=== PATIENT | female | born 1975 | race Caucasian/White ===

== ENCOUNTER 2017-11-15 13:26 | Observation (INO) ==
[2017-11-15] MEDS ORDERED: *HR* Morphine 2 MG/ML SYRINGE IVP ONE (14:56)
[2017-11-15] MEDS ORDERED: 0.9 % Sodium Chloride 1,000 ML IVC ONE ×2 (14:56→16:34)
[2017-11-15] MEDS ORDERED: Ondansetron 4 MG/2 ML VIAL IVP ONE (14:56)
[2017-11-15 15:19] LABS: Bilirubin,Urine Moderate (Negative); Blood,Urine Large (Negative); Clarity,Urine Cloudy (Clear); Glucose,Urine (UA) Normal (Normal); Ketones,Urine 15 mg/dL (Negative); Leukocyte Esterase,Urine Small (Negative); Nitrite,Urine Negative (Negative); PH,Urine 5.5 pH Units (5.0-8.0); Protein,Urine 100 mg/dL (Neg-Trace); Specific Gravity,Urine 1.019 (1.010-1.025); Urobilinogen,Urine Normal (Normal)
[2017-11-15 15:20] LABS: Color,Urine Brown (Yellow)
[2017-11-15 15:29] LABS: Basophils % 0.4 %; Eosinophils # 0.1 K/mcL (0.0-0.6); Eosinophils % 0.8 %; Hematocrit 38.2 % (35.3-44.9); Hemoglobin 13.1 g/dL (11.5-15.4); Immature Granulocytes % 0.3 % (0-4); Lymphocytes % 13.1 %; Mean Corpuscular HGB Conc 34.3 g/dL (31.6-35.5); Mean Corpuscular Hemoglobin 33.4 pg (28.0-33.3); Mean Corpuscular Volume 97.4 fL (83.0-100.0); Mean Platelet Volume 9.4 fL (9.4-12.4); Monocytes # 0.6 K/mcL (0.0-1.3); Monocytes % 7.8 %; Neutrophils # 5.9 K/mcL (1.6-8.9); Platelet Count 262 K/mcL (140-400); Red Blood Count 3.92 M/mcL (3.82-4.97); Red Cell Distribution Width 14.5 % (11.5-14.5); Segmented Neutrophils % 77.6 %
[2017-11-15 15:49] LABS: Albumin 3.8 g/dL (3.5-5.7); Albumin/Globulin Ratio 1.3 (1.1-2.2); Bilirubin,Direct 0.1 mg/dL (0.0-0.2); Bilirubin,Indirect 0.4 mg/dL (0.0-1.2); Bilirubin,Total 0.5 mg/dL (0.3-1.0); Calcium 9.8 mg/dL (8.6-10.3); Globulin 2.9 g/dL (2.4-3.5); Potassium 3.7 mEq/L (3.5-5.1); Total Protein 6.7 g/dL (6.4-8.9)
[2017-11-15] MEDS ORDERED: Ondansetron 4 MG/2 ML VIAL IVP STA (16:22)
[2017-11-15] MEDS ORDERED: *HR* Morphine 2 MG/ML SYRINGE IVP STA (16:22)
--- NOTE | 2017-11-15 16:33 | Emergency Department Note ---
Disposition Clinical Impression: PAT (acute kidney injury), Kidney stone Disposition: Admitted As Inpatient Condition: Good General Adult HPI - General Chief complaint: ED Abdominal Pain Stated complaint: "kidney stone" Time Seen by Provider: 11/15/17 13:40 Source: other Limitations: physical limitation Nursing Notes Reviewed: Yes Vital Signs Reviewed: Yes - History of Present Illness HPI Narrative: Patient presents emergency department today for evaluation of back pain as well as dark urine. Patient's accompanied by caretakers. The patient was initially seen on the fifth at [facility] for evaluation of possible kidney stone. The patient is unable to state what exactly happened that she has a history of bipolar schizophrenia and MRDD that does not allow her to significantly communicate. Nursing staff state that the kidney stone was 14 mm in size and that she was placed on diclofenac. Diclofenac not been helping and she has been screaming out in episodes of pain that caused her to be assessed distraction to the other members. The patient's urine has changed to be a dark color. Pain Scale: 4 - Related Data Home Medications Medication Instructions Recorded Confirmed Acetaminophen [Tylenol] 1,000 mg PO BID PRN 11/15/17 11/15/17 Atorvastatin [Lipitor] 40 mg PO HS 11/15/17 11/15/17 Cetirizine HCl [Zyrtec] 10 mg PO DAILY 11/15/17 11/15/17 Cyanocobalamin (Vitamin B-12) 500 mcg PO DAILY 11/15/17 11/15/17 [Vitamin B12] DULoxetine [Cymbalta] 90 mg PO QAM 11/15/17 11/15/17 Diclofenac Sodium [Voltaren] 75 mg PO BID 11/15/17 11/15/17 Docusate Sodium [Dulcolax Stool 200 mg PO DAILY 11/15/17 11/15/17 Softener] Haloperidol Decanoate [Haldol] 75 mg IM QMONTH 11/15/17 11/15/17 Ibuprofen [Ibu] 400 mg PO Q8H PRN 11/15/17 11/15/17 Levothyroxine [Synthroid] 25 mcg PO 0630 11/15/17 11/15/17 Medroxyprogesterone Acetate 10 mg PO DAILY PRN 11/15/17 11/15/17 [Provera] Nystatin POWDER [Nystop] 1 appl TP TID PRN 11/15/17 11/15/17 Polyethylene Glycol 3350 [MiraLAX] 17 gm PO DAILY PRN 11/15/17 11/15/17 Psyllium Husk [Fiber] 0.52 gm PO BID 11/15/17 11/15/17 metFORMIN [Glucophage] 500 mg PO BIDWM 11/15/17 11/15/17 Allergies Allergy/AdvReac Type Severity Reaction Status Date / Time No Known Allergies Allergy Verified 11/15/17 14:58 Limitations: ROS unobtainable due to patients medical condition Past Medical History - Past Medical History Medical history: Reports: other Psychiatric history: Reports: bipolar, schizophrenia, other 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 No significant CVA tenderness. Extremities: No peripheral edema or extremity tenderness Skin: Normal temperature, turgor and texture; no rash, ulcers or subcutaneous nodules Neuro: Awake and interactive - General Limitations: physical limitation General appearance: alert, in no apparent distress Course - Reevaluation(s) Reevaluation #1: Patient's overall physical exam is challenging secondary to her decreased ability to communicate pain. Patient does not have what appears to be significant CVA tenderness or abdominal pain. The group emergency spill response technician is at bedside and states that she has been requiring one-on-one nursing and care. I have obtained previous CAT scan records show 14 mm stone at the right UVP. Patient does have associated hydronephrosis. Patient's urine has been obtained and is being cultured for possible infection. I did talk with urology who will accept the patient to their service. Agrees with ceftriaxone to cover her until cultures have resulted. Patient will likely return should stent tomorrow. I do not believe that there are any barriers to her being discharged. She has been cooperative in the emergency department as long as she has had pain medicine. She will try to get out of bed if she does not have appropriate pain medicine ordered. Patient will continue to be observed in the emergency department. I will notify urology if I believe there is any other barriers to disposition. - Consultations Consultation #1: Discussed with Dr. Myrick. Patient accepted to their service. Vital Signs Temperature 98.2 F 11/15/17 13:30 Pulse Rate 98 11/15/17 13:30 Respiratory Rate 14 11/15/17 13:30 Blood Pressure 89/63 11/15/17 13:30 O2 Sat by Pulse Oximetry 97 11/15/17 13:30 Temperature 98.6 F 11/16/17 05:58 Pulse Rate 80 11/16/17 05:58 Respiratory Rate 16 11/16/17 05:58 Blood Pressure 114/68 11/16/17 05:58 O2 Sat by Pulse Oximetry 96 11/16/17 05:58 Oxygen Delivery Oxygen Delivery Room Air Medical Decision Making - Lab Data Result diagrams: 11/15/17 14:56 11/15/17 14:56 Lab Results 11/15/17 11/15/17 11/15/17 Range/Units 14:16 14:56 14:56 WBC 7.7 (4.3-11.1) K/mcL RBC 3.92 (3.82-4.97) M/mcL Hgb 13.1 (11.5-15.4) g/dL Hct 38.2 (35.3-44.9) % MCV 97.4 (83.0-100.0) fL MCH 33.4 H (28.0-33.3) pg MCHC 34.3 (31.6-35.5) g/dL RDW 14.5 (11.5-14.5) % Plt Count 262 (140-400) K/mcL MPV 9.4 (9.4-12.4) fL Immature Gran % 0.3 (0-4) % Seg Neutrophils % 77.6 % Lymphocytes % 13.1 % Monocytes % 7.8 % Eosinophils % 0.8 % Basophils % 0.4 % Neutrophils # 5.9 (1.6-8.9) K/mcL Lymphocytes # 1.0 (0.6-4.6) K/mcL Monocytes # 0.6 (0.0-1.3) K/mcL Eosinophils # 0.1 (0.0-0.6) K/mcL Basophils # 0.0 (0.0-0.2) K/mcL Sodium 138 (136-145) mEq/L Potassium 3.7 (3.5-5.1) mEq/L Chloride 104 (98-107) mEq/L Carbon Dioxide 25 (23-29) mEq/L BUN 22 H (6-20) mg/dL Creatinine 1.71 H (0.60-1.20) mg/dL Est GFR ( Amer) 40 L (> 60) Est GFR (Non-Af Amer) 33 L (> 60) BUN/Creatinine Ratio 13 (6-26) Glucose 112 H (70-105) mg/dL Calculated Osmolality 290 (280-300) Lactic Acid (0.5-2.2) mmol/L Calcium 9.8 (8.6-10.3) mg/dL Total Bilirubin 0.5 (0.3-1.0) mg/dL Direct Bilirubin 0.1 (0.0-0.2) mg/dL Indirect Bilirubin 0.4 (0.0-1.2) mg/dL AST 32 (13-39) Units/L ALT 18 (7-52) Units/L Alkaline Phosphatase 52 (34-104) Units/L Serum Total Protein 6.7 (6.4-8.9) g/dL Albumin 3.8 (3.5-5.7) g/dL Globulin 2.9 (2.4-3.5) g/dL Albumin/Globulin Ratio 1.3 (1.1-2.2) Lipase 81 (11-82) Units/L Ur Specimen Adequacy See below A Urine Color Brown (Yellow) Urine Clarity Cloudy A (Clear) Urine pH 5.5 (5.0-8.0) pH Units Ur Specific Whitman 1.019 (1.010-1.025) Urine Protein 100 H (Neg-Trace) mg/dL Urine Glucose (UA) Normal (Normal) mg/dL Urine Ketones 15 H (Negative) mg/dL Urine Blood Large H (Negative) Urine Nitrite Negative (Negative) Urine Bilirubin Moderate H (Negative) Urine Urobilinogen Normal (Normal) mg/dL Ur Leukocyte Esterase Small H (Negative) Ur Culture Indicated? YES A (NO) 11/15/17 Range/Units 15:08 WBC (4.3-11.1) K/mcL RBC (3.82-4.97) M/mcL Hgb (11.5-15.4) g/dL Hct (35.3-44.9) % MCV (83.0-100.0) fL MCH (28.0-33.3) pg MCHC (31.6-35.5) g/dL RDW (11.5-14.5) % Plt Count (140-400) K/mcL MPV (9.4-12.4) fL Immature Gran % (0-4) % Seg Neutrophils % % Lymphocytes % % Monocytes % % Eosinophils % % Basophils % % Neutrophils # (1.6-8.9) K/mcL Lymphocytes # (0.6-4.6) K/mcL Monocytes # (0.0-1.3) K/mcL Eosinophils # (0.0-0.6) K/mcL Basophils # (0.0-0.2) K/mcL Sodium (136-145) mEq/L Potassium (3.5-5.1) mEq/L Chloride (98-107) mEq/L Carbon Dioxide (23-29) mEq/L BUN (6-20) mg/dL Creatinine (0.60-1.20) mg/dL Est GFR ( Amer) (> 60) Est GFR (Non-Af Amer) (> 60) BUN/Creatinine Ratio (6-26) Glucose (70-105) mg/dL Calculated Osmolality (280-300) Lactic Acid 1.2 (0.5-2.2) mmol/L Calcium (8.6-10.3) mg/dL Total Bilirubin (0.3-1.0) mg/dL Direct Bilirubin (0.0-0.2) mg/dL Indirect Bilirubin (0.0-1.2) mg/dL AST (13-39) Units/L ALT (7-52) Units/L Alkaline Phosphatase (34-104) Units/L Serum Total Protein (6.4-8.9) g/dL Albumin (3.5-5.7) g/dL Globulin (2.4-3.5) g/dL Albumin/Globulin Ratio (1.1-2.2) Lipase (11-82) Units/L Ur Specimen Adequacy Urine Color (Yellow) Urine Clarity (Clear) Urine pH (5.0-8.0) pH Units Ur Specific Whitman (1.010-1.025) Urine Protein (Neg-Trace) mg/dL Urine Glucose (UA) (Normal) mg/dL Urine Ketones (Negative) mg/dL Urine Blood (Negative) Urine Nitrite (Negative) Urine Bilirubin (Negative) Urine Urobilinogen (Normal) mg/dL Ur Leukocyte Esterase (Negative) Ur Culture Indicated? (NO)
[2017-11-15] MEDS ORDERED: Ondansetron 4 MG/2 ML VIAL IVP PRN (16:46)
[2017-11-15] MEDS ORDERED: OXYCODONE Oral CONC 10 MG/0.5 ML ORAL.SYG SL PRN (16:46)
[2017-11-15] MEDS ORDERED: *HR* HYDROcodone/Acet 5/325 mg TABLET PO PRN (16:46)
[2017-11-15] MEDS ORDERED: Naloxone 0.4 MG/ML INJ IVP PRN (16:46)
[2017-11-15] MEDS ORDERED: *HR* Promethazine 25 MG/ML VIAL IVP PRN (16:46)
[2017-11-15] MEDS ORDERED: Dextrose Gel 15 GM/37.5 ML TUBE PO PRN ×2 (16:52)
[2017-11-15] MEDS ORDERED: D5% in Water 1,000 ML IVC PRN (16:52)
[2017-11-15] MEDS ORDERED: *HR* Dextrose 50 % in Water (Syg) 50 ML SYRINGE IVP PRN (16:52)
[2017-11-15] MEDS ORDERED: Haloperidol Decanoate 50 MG/ML VIAL IM SCH (17:00)
--- NOTE | 2017-11-15 17:14 | Urology History & Physical ---
Date of Encounter: 11/15/17 Time of Encounter: 17:11 Assessment and Plan (1) Ureteral calculi Current Visit: Yes Status: Acute We'll plan for cystoscopy and ureteral stent placement tomorrow. We'll need to perform a staged procedure on the stone because of its proximal location and size. This was discussed in detail with the patient's caregiver. Nothing by mouth after midnight. will obtain KUB (2) PAT (acute kidney injury) Current Visit: Yes Status: Acute Hold all NSAIDs. Hydration. Should improve with stent placement tomorrow. History of Present Illness Chief complaint: flank pain. gross hematuria. HPI: Ms. Cowan is a 42 year old female recently seen at [place] emergency room with a 14 mm UPJ stone with severe hydronephrosis. Symptoms have remained severe. Gross hematuria. Patient is MRDD with minimal communication. Her caregivers report there been unable to control her pain and symptoms. No reported fever. Past Med Surg Social Fam HX - Past Medical History Medical history: other Additional medical history: PCOS, arrythmia Psychiatric history: bipolar, schizophrenia, other - Social History Smoking Status: Never smoker Alcohol use: none Drug use: none Medications and Allergies Acetaminophen [Tylenol] 1,000 mg PO BID PRN 11/15/17 [History] Atorvastatin [Lipitor] 40 mg PO HS 11/15/17 [History] Cetirizine HCl [Zyrtec] 10 mg PO DAILY 11/15/17 [History] Cyanocobalamin (Vitamin B-12) [Vitamin B12] 500 mcg PO DAILY 11/15/17 [History] DULoxetine [Cymbalta] 90 mg PO QAM 11/15/17 [History] Diclofenac Sodium [Voltaren] 75 mg PO BID 11/15/17 [History] Docusate Sodium [Dulcolax Stool Softener] 200 mg PO DAILY 11/15/17 [History] Haloperidol Decanoate [Haldol] 75 mg IM QMONTH 11/15/17 [History] Ibuprofen [Ibu] 400 mg PO Q8H PRN 11/15/17 [History] Levothyroxine [Synthroid] 25 mcg PO 0630 11/15/17 [History] Medroxyprogesterone Acetate [Provera] 10 mg PO DAILY PRN 11/15/17 [History] Nystatin POWDER [Nystop] 1 appl TP TID PRN 11/15/17 [History] Polyethylene Glycol 3350 [MiraLAX] 17 gm PO DAILY PRN 11/15/17 [History] Psyllium Husk [Fiber] 0.52 gm PO BID 11/15/17 [History] metFORMIN [Glucophage] 500 mg PO BIDWM 11/15/17 [History] 3 Allergy/AdvReac Type Severity Reaction Status Date / Time No Known Allergies Allergy Verified 11/15/17 14:58 Review of Systems ROS unobtainable: due to mental status - Constitutional no fever(s) Exam Initial Vital Signs Temp Pulse Resp BP Pulse Ox 98.2 F 98 14 89/63 97 11/15/17 13:30 11/15/17 13:30 11/15/17 13:30 11/15/17 13:30 11/15/17 13:30 - General physical appearance Present: no distress, moderate pain - Eyes Present: PERRL, conjunctiva is clear - ENT Present: normal nares, no congestion - Neck Present: no masses - Respiratory Present: normal respiratory effort - Cardiovascular Cardiovascular exam IM: RRR - Abdomen Abdomen: Present: soft, suprapubic tenderness - Integumentary Present: no rash - Neurologic Present: normal coordination, other (noncommunicative) - Musculoskeletal Present: normal gait Urology Results - Labs 11/15/17 14:56 11/15/17 14:56 Abnormal lab results MCH 33.4 pg (28.0-33.3) H 11/15/17 14:56 BUN 22 mg/dL (6-20) H 11/15/17 14:56 Creatinine 1.71 mg/dL (0.60-1.20) H 11/15/17 14:56 Est GFR ( Amer) 40 (> 60) L 11/15/17 14:56 Est GFR (Non-Af Amer) 33 (> 60) L 11/15/17 14:56 Glucose 112 mg/dL (70-105) H 11/15/17 14:56 Ur Specimen Adequacy See below A 11/15/17 14:16 Urine Clarity Cloudy (Clear) A 11/15/17 14:16 Urine Protein 100 mg/dL (Neg-Trace) H 11/15/17 14:16 Urine Ketones 15 mg/dL (Negative) H 11/15/17 14:16 Urine Blood Large (Negative) H 11/15/17 14:16 Urine Bilirubin Moderate (Negative) H 11/15/17 14:16 Ur Leukocyte Esterase Small (Negative) H 11/15/17 14:16 Ur Culture Indicated? YES (NO) A 11/15/17 14:16 All other labs normal.
[2017-11-15] MEDS: Insulin LISPRO 300 UNITS/3 ML VIAL SQ SCH (18:41)
[2017-11-15] MEDS: 0.9 % Sodium Chloride 1,000 ML IVC SCH (19:28)
[2017-11-15] MEDS: OXYCODONE Oral CONC 10 MG/0.5 ML ORAL.SYG SL PRN (20:34)
[2017-11-16] MEDS: Insulin LISPRO 300 UNITS/3 ML VIAL SQ SCH ×4 (00:37→18:00)
[2017-11-16] MEDS: 0.9 % Sodium Chloride 1,000 ML IVC SCH ×3 (04:55→16:00)
[2017-11-16] MEDS: OXYCODONE Oral CONC 10 MG/0.5 ML ORAL.SYG SL PRN ×3 (04:57→21:47)
[2017-11-16] MEDS ORDERED: Levothyroxine 25 MCG TABLET PO SCH (06:30)
[2017-11-16] MEDS ORDERED: *HR* FentaNYL (PF) 100 MCG/2 ML VIAL ONE (15:24)
[2017-11-16] MEDS ORDERED: Ondansetron 4 MG/2 ML VIAL ONE (15:25)
[2017-11-16] MEDS ORDERED: Lidocaine -MPF 2% 2 ML VIAL ONE (15:25)
[2017-11-16] MEDS ORDERED: Dexamethasone 4 MG/ML VIAL ONE (15:25)
[2017-11-16] MEDS ORDERED: *HR* Propofol 200 MG/20 ML VIAL IVP ONE (15:26)
--- NOTE | 2017-11-16 15:27 | Anesthesia Evaluation PreOp ---
Date of Encounter: 11/16/17 Time of Encounter: 15:25 - Past History Planned Operation: Cysto Rt Stent Cardiac History: Denies any Significant Hx Pulmonary History: Denies Any Significant HX DUSTLESS OPERATOR History: Denies Any Significant HX Other Medical History: Other (MRDD Schizoaffective disorder Bipolar Obese) : No Test: Negative Alcohol Use: none Drug use: none Medications and Allergies Acetaminophen [Tylenol] 1,000 mg PO BID PRN 11/15/17 [History] Atorvastatin [Lipitor] 40 mg PO HS 11/15/17 [History] Cetirizine HCl [Zyrtec] 10 mg PO DAILY 11/15/17 [History] Cyanocobalamin (Vitamin B-12) [Vitamin B12] 500 mcg PO DAILY 11/15/17 [History] DULoxetine [Cymbalta] 90 mg PO QAM 11/15/17 [History] Diclofenac Sodium [Voltaren] 75 mg PO BID 11/15/17 [History] Docusate Sodium [Dulcolax Stool Softener] 200 mg PO DAILY 11/15/17 [History] Haloperidol Decanoate [Haldol] 75 mg IM QMONTH 11/15/17 [History] Ibuprofen [Ibu] 400 mg PO Q8H PRN 11/15/17 [History] Levothyroxine [Synthroid] 25 mcg PO 0630 11/15/17 [History] Medroxyprogesterone Acetate [Provera] 10 mg PO DAILY PRN 11/15/17 [History] Nystatin POWDER [Nystop] 1 appl TP TID PRN 11/15/17 [History] Polyethylene Glycol 3350 [MiraLAX] 17 gm PO DAILY PRN 11/15/17 [History] Psyllium Husk [Fiber] 0.52 gm PO BID 11/15/17 [History] metFORMIN [Glucophage] 500 mg PO BIDWM 11/15/17 [History] 3 Allergy/AdvReac Type Severity Reaction Status Date / Time No Known Allergies Allergy Verified 11/15/17 14:58 - Meds/Allergy Pre-op Review Medications Reviewed: Yes Allergies Reviewed: Yes Beta Blockers on Current Med List: No Anesthesia Results - Labs 11/15/17 14:56 11/15/17 14:56 Laboratory Tests 11/15/17 11/15/17 14:56 14:56 Hgb 13.1 Hct 38.2 Plt Count 262 Sodium 138 Potassium 3.7 BUN 22 H Creatinine 1.71 H Anesthesia Exam O2 Sat Height 1.6 m Weight 90.1 kg Weight 89 kg O2 Sat by Pulse Oximetry 93 O2 Sat by Pulse Oximetry 92 O2 Sat by Pulse Oximetry 96 O2 Sat by Pulse Oximetry 96 O2 Sat by Pulse Oximetry 93 O2 Sat by Pulse Oximetry 95 O2 Sat by Pulse Oximetry 100 O2 Sat by Pulse Oximetry 100 Vital Signs Temp Pulse Resp BP Pulse Ox 98.2 F 98 14 89/63 97 11/15/17 13:30 11/15/17 13:30 11/15/17 13:30 11/15/17 13:30 11/15/17 13:30 Height: 5'3 Weight: 198 lbs NPO (# of Hours): MN Pain Scale: 0 - HEENT Pupil (Motor): Pupils equal, EOMI Mallampati: III Oral Opening: Less than or equal to 3 - DUSTLESS OPERATOR LOC: Oriented DUSTLESS OPERATOR Motor: Normal RUE, Normal LUE, Normal RLE, Normal LLE, Normal Face DUSTLESS OPERATOR Sensory: Normal: RUE, LUE, RLE, LLE, Face - Cardiac Rhythm: Regular Murmur: None JVD: No Carotid Bruit: No - Pulmonary Breath Sounds: bilateral Clear Respiratory Effort: Symmetrical Anesthesia Assess/Plan ASA Score: 2 Modified Harold Scale for Level of Consciousness: Cooperative, oriented, and tranquil Anesthetic Plan: General Monitoring Plan: Standard Monitors Recovery Plan: PACU (Discussed GA, agrees to proceed)
[2017-11-16] MEDS ORDERED: *HR* Midazolam HCl 2 MG/2 ML VIAL ONE (15:38)
[2017-11-16] MEDS ORDERED: Isovue-300 50 ML VIAL IVP ONE (15:41)
[2017-11-16] MEDS ORDERED: *HR* Morphine 2 MG/ML SYRINGE IVP PRN (16:31)
[2017-11-16] MEDS ORDERED: *HR* Promethazine 25 MG/ML VIAL IVP PRN ×2 (16:31→17:18)
--- NOTE | 2017-11-16 16:50 | Operative Note ---
Date of procedure: 11/16/17 Pre-op diagnosis: 1.4 cm ureteropelvic junction stone on the right side with severe hydroneph Post-op diagnosis: same Procedure: Cystoscopy. Right retrograde pyelogram. Right ureteral stent placement. Anesthesia: GETA Surgeon: Bry Myrick Was there an college sports assistant present: No Estimated blood loss (cc): 0 Specimen: None Condition: stable Disposition: PACU Procedure in Detail: PROCEDURE IN DETAIL: Patient was taken back to the operating room, positioned supine on the operating table. Anesthesia was applied without complication. They were moved into dorsal lithotomy. Careful attention was maintained to cushion all pressure points for patient's safety. They were prepped and draped in sterile fashion. Time-out was performed with the proper patient and procedure. A 21-Andorran rigid cystoscope was inserted into the bladder without difficulty. Systematic examination of bladder revealed no abnormalities. The ureteral orifice was cannulated using a 5-Andorran ureteral Catheter and a retrograde pyelogram was performed using Isovue. A filling defect was identified which corresponded to the stone. The stone was very dense and impacted at the UPJ. At that point, a zip wire was placed through the 5- Andorran and confirmed in the renal pelvis with fluoroscopy. A 6 x 26 ureteral stent was placed over the zip wire. Placement was confirmed under fluoroscopy. There was return of significant hydronephrotic dark urine with debris. Bladder was drained. There were no complications.
--- NOTE | 2017-11-16 17:11 | Anesthesia Evaluation Post Op ---
Date of Encounter: 11/16/17 Time of Encounter: 17:10 - Vital Signs Vital Signs: Vital Signs/O2 Sat/Glucose, Most Current Temp Pulse Resp BP Pulse Ox 11/16/17 17:06 97.0 F L 60 15 111/61 92 11/16/17 16:56 85 14 112/66 100 11/16/17 16:46 56 13 110/66 100 11/16/17 16:36 98.5 F 60 14 95/59 99 11/16/17 15:04 97.8 F 63 12 117/71 93 - Lungs Lungs: Clear Ascult./Percussion - Airway Airway: Non-obstructed - Cardiovascular Regular Rate - Mental Status Mental Status: Alert & Oriented, Answers Appropriately - Pain Pain Scale: 0 - Nausea Vomiting Nausea Vomiting: Not Present - Hydration Hydration: Tolerates oral liquids - Discharge PostOp Status: Transfer Patient to floor
[2017-11-16] MEDS ORDERED: Dextrose Gel 15 GM/37.5 ML TUBE PO PRN ×2 (17:18)
[2017-11-16] MEDS ORDERED: *HR* Dextrose 50 % in Water (Syg) 50 ML SYRINGE IVP PRN (17:18)
[2017-11-16] MEDS ORDERED: *HR* HYDROcodone/Acet 5/325 mg TABLET PO PRN (17:18)
[2017-11-16] MEDS ORDERED: Naloxone 0.4 MG/ML INJ IVP PRN (17:18)
[2017-11-16] MEDS ORDERED: Ondansetron 4 MG/2 ML VIAL IVP PRN (17:18)
[2017-11-16] MEDS ORDERED: D5% in Water 1,000 ML IVC PRN (17:18)
[2017-11-16] MEDS ORDERED: Levofloxacin 500 MG/100 ML 500 MG/100 ML BAG IVPB SCH (18:00)
[2017-11-17] MEDS: Insulin LISPRO 300 UNITS/3 ML VIAL SQ SCH ×2 (00:31→05:55)
[2017-11-17] MEDS: OXYCODONE Oral CONC 10 MG/0.5 ML ORAL.SYG SL PRN ×3 (00:56→10:07)
[2017-11-17] MEDS: 0.9 % Sodium Chloride 1,000 ML IVC SCH (02:33)
[2017-11-17 03:26] VITALS: BP 129/79
[2017-11-17] MEDS ORDERED: Levothyroxine 25 MCG TABLET PO SCH (06:30)
[2017-11-17 08:04] LABS: Calcium 8.7 mg/dL (8.6-10.3); Potassium 3.5 mEq/L (3.5-5.1)
--- NOTE | 2017-11-17 08:17 | Discharge Summary ---
Date of Encounter: 11/17/17 Time of Encounter: 08:18 - Discharge Diagnosis (1) Ureteral calculi Priority: Primary Status: Acute - Hospital Course Hospital course: Ms. Cowan is a 42 year old female who presents with a history of 1.4 cm ureteropelvic junction stone on the right side with severe hydronephrosis. On 11/16/2017, the patient was taken to the operating room where she underwent a right retrograde pyelogram and right ureteral stent placement. There were no surgical complications, and the patient tolerated the procedure well. Her postoperative course was relatively unremarkable, and she was dismissed in satisfactory condition. Postoperative expectations, restrictions, activity, and follow-up were discussed with caregiver in room. Patient will follow-up to discuss stone extraction procedure. Time spent discussing smoking cessation with patient: 3 to 10 minutes - Time Spent with Patient Total time spent providing and/or coordinating discharge services: Less than 30 minutes Procedures and tests throughout hospitalization: right retrograde pyelogram, right ureteral stent placement Labs on day of discharge: Labs from last 24 hours 11/17/17 11/17/17 11/16/17 07:17 07:13 17:46 Sodium 138 Potassium 3.5 Chloride 107 Carbon Dioxide 23 BUN 18 Creatinine 1.24 H Est GFR ( Amer) 58 L Est GFR (Non-Af Amer) 47 L BUN/Creatinine Ratio 15 Glucose 113 H POC Glucose 105 H 79 Calculated Osmolality 289 Calcium 8.7 11/16/17 11:56 Sodium Potassium Chloride Carbon Dioxide BUN Creatinine Est GFR ( Amer) Est GFR (Non-Af Amer) BUN/Creatinine Ratio Glucose POC Glucose 95 Calculated Osmolality Calcium - Impressions ITS Impressions KUB X-Ray 11/15/17 17:10 IMPRESSION: Calcific density in the right mid abdomen measuring up to 11-13 mm. These could be within the right renal collecting system and/or ureter. The more cranial calcific densities could be cholelithiasis. D/ 11/15/2017 19:15:36 Quita Malik MD / lgray Interpreting Provider: Quita Malik MD Retrograde Pyelogram 11/16/17 16:23 IMPRESSION: Intraprocedural fluoroscopic spot images as above. See separate procedure report for more information. D/ / Shola Harrell / Shola Harrell Interpreting Provider: Shola Harrell - Discharge Medications Prescriptions: Docusate [Colace] 100 mg PO BID #60 capsule HYDROcodone/Acet 5/325 mg [Woodbine 5-325 mg] 1 tab PO Q6H PRN 4 Days #15 tab PRN Reason: Moderate Pain Home Medications: Acetaminophen [Tylenol] 1,000 mg PO BID PRN 11/15/17 [History] Atorvastatin [Lipitor] 40 mg PO HS 11/15/17 [History] Cetirizine HCl [Zyrtec] 10 mg PO DAILY 11/15/17 [History] Cyanocobalamin (Vitamin B-12) [Vitamin B12] 500 mcg PO DAILY 11/15/17 [History] DULoxetine [Cymbalta] 90 mg PO QAM 11/15/17 [History] Diclofenac Sodium [Voltaren] 75 mg PO BID 11/15/17 [History] Docusate Sodium [Dulcolax Stool Softener] 200 mg PO DAILY 11/15/17 [History] Haloperidol Decanoate [Haldol] 75 mg IM QMONTH 11/15/17 [History] Ibuprofen [Ibu] 400 mg PO Q8H PRN 11/15/17 [History] Levothyroxine [Synthroid] 25 mcg PO 0630 11/15/17 [History] Medroxyprogesterone Acetate [Provera] 10 mg PO DAILY PRN 11/15/17 [History] Nystatin POWDER [Nystop] 1 appl TP TID PRN 11/15/17 [History] Polyethylene Glycol 3350 [MiraLAX] 17 gm PO DAILY PRN 11/15/17 [History] Psyllium Husk [Fiber] 0.52 gm PO BID 11/15/17 [History] metFORMIN [Glucophage] 500 mg PO BIDWM 11/15/17 [History] Docusate [Colace] 100 mg PO BID #60 capsule 11/17/17 [Rx] HYDROcodone/Acet 5/325 mg [[place] 5-325 mg] 1 tab PO Q6H PRN 4 Days #15 tab 11/17 [Rx] Allergies/Adverse Reactions: 3 Allergy/AdvReac Type Severity Reaction Status Date / Time No Known Allergies Allergy Verified 11/15/17 14:58 Date of admission: 11/15/17 16:45 Primary care physician: Christiano Bull MD Discharging clinician: Sarahi Simon Anticipated date of discharge: 11/17/17 Exam Initial Vital Signs Temp Pulse Resp BP Pulse Ox 98.2 F 98 14 89/63 97 11/15/17 13:30 11/15/17 13:30 11/15/17 13:30 11/15/17 13:30 11/15/17 13:30 - General physical appearance Present: well developed, no distress, no pain - ENT Present: normal nares, no hearing loss, no congestion - Neck Present: no masses, trachea midline - Respiratory Present: normal respiratory effort - Cardiovascular Cardiovascular exam IM: RRR - Abdomen Abdomen: Present: soft, non tender - Integumentary Present: no rash, no abnormal pigmentation - Neurologic Present: other (patient sleeping ) - Musculoskeletal Present: other (no pedal edema ) - Patient Status Disposition: Transfer Other Functional capacity at discharge: independent ambulation Overall status at discharge: patient is progressing back to baseline - Discharge Instructions Follow Up With: Christiano Bull MD [Primary Care Provider] - Bry Myrick MD [Partnered Physician] - Additional Instructions: Call if fever greater than 101 degrees. May expect some blood in the urine. May expect irritating voiding symptoms such as dysuria, frequency, hesitancy, urgency. May use Azo [id number]. Okay to return to normal activity as tolerated. Okay to shower. - Diet and Activity Activity: increase activity as tolerated Diet: advance to your usual diet - VTE Documentation of Mechanical Device: Intermittent pneumatic compression device
[2017-11-17] MEDS ORDERED: Haloperidol Decanoate 50 MG/ML VIAL IM SCH ×2 (09:00)
== END 2017-11-17 10:30 | disposition home or self-care (01) ==
LOC: 3ANU 13:26 → EMEROOARM 13:26 → 3ANU 18:06
PROVIDERS: ADMIT Urology; ATTEND Urology

== ENCOUNTER 2017-11-19 23:42 | Inpatient (IN) ==
--- NOTE | 2017-11-20 02:18 | Internal Med History&Physical ---
<YogeshKaty - Last Filed: 11/20/17 03:11> Date of Encounter: 11/20/17 Internal Medicine - H&P: Meds Acetaminophen [Tylenol] 1,000 mg PO BID PRN 11/15/17 [History] Atorvastatin [Lipitor] 40 mg PO HS 11/15/17 [History] Cetirizine HCl [Zyrtec] 10 mg PO DAILY 11/15/17 [History] Cyanocobalamin (Vitamin B-12) [Vitamin B12] 500 mcg PO DAILY 11/15/17 [History] DULoxetine [Cymbalta] 90 mg PO QAM 11/15/17 [History] Diclofenac Sodium [Voltaren] 75 mg PO BID 11/15/17 [History] Docusate Sodium [Dulcolax Stool Softener] 200 mg PO DAILY 11/15/17 [History] Haloperidol Decanoate [Haldol] 75 mg IM QMONTH 11/15/17 [History] Ibuprofen [Ibu] 400 mg PO Q8H PRN 11/15/17 [History] Levothyroxine [Synthroid] 25 mcg PO 0630 11/15/17 [History] Medroxyprogesterone Acetate [Provera] 10 mg PO DAILY PRN 11/15/17 [History] Nystatin POWDER [Nystop] 1 appl TP TID PRN 11/15/17 [History] Polyethylene Glycol 3350 [MiraLAX] 17 gm PO DAILY PRN 11/15/17 [History] Psyllium Husk [Fiber] 0.52 gm PO BID 11/15/17 [History] metFORMIN [Glucophage] 500 mg PO BIDWM 11/15/17 [History] Docusate [Colace] 100 mg PO BID #60 capsule 11/17/17 [Rx] HYDROcodone/Acet 5/325 mg [[place] 5-325 mg] 1 tab PO Q6H PRN 4 Days #15 tab 11/17 [Rx] 3 Allergy/AdvReac Type Severity Reaction Status Date / Time No Known Allergies Allergy Verified 11/15/17 14:58 All Systems PM: A 10-system review of systems was performed and is negative for pertinent findings except as documented above in the HPI. - Constitutional Vitals: Temp Pulse Resp BP Pulse Ox 98.3 F 98 15 135/80 99 11/20/17 02:03 11/20/17 02:03 11/20/17 02:03 11/20/17 02:03 11/20/17 02:03 - Time Spent With Patient Total time spent is greater than 50% in coordination of care (as documented) at patient's floor/unit and/or counseling patient: - Attending Attestation Sheryl Cowan is a 42 year old woman with developmental delay who lives at an assisted living facility with multiple psychotic disorders who was admitted here from 11/15- after presenting with dark urine and back pain after multiple visits to [facility] and was diagnosed here with UTI and nephrolithiasis ( 1.4cm [facility]J stone). She was admitted to the urology service and underwent cystoscopy and a right ureteral stent placed. There was significant hydronephrotic dark urine with debris. She was discharged with analgesics but no abx. She is brought back now by her salesperson books stating that since her discharge she has remained unwell, not eating and notably irritable with weird behavior but not specifying complaints of pain. No fever or chills reported. She was taken to [facility] and transferred back here for further evaluation. On my assessment she was non-verbal but follow some commands. Family history is unknown. Vitals wnl. Obese white F lying comfortably in bed in NAD, slightly dry mucous membranes, no conjunctivae pallor, supple neck, no LAD, no wheezing, rales or rhonchi. Nl s1/s2. Abdomen soft and non-tender w/ no peritoneal reaction, no c/c /e. Unable to assess orientation but she is awake. Able to move all extremities actively. Will admit for observation. Obtain repeat UA to rule out persistent infection as this may be playing a role. Keep NPO for urology evaluation. Send comprehensive labs. Further care based on findings. Resume psychiatric medications. Hold metformin. Noted to have had PAT during last admission. Will check Cr and give fluids if needed. DVT prophylaxis. ABHIJEET GRAY. <Saud Patel - Last Filed: 11/20/17 04:37> Date of Encounter: 11/20/17 Time of Encounter: 02:30 Internal Medicine - H&P: HPI Chief complaint: Altered mental status Admitted From: Emergency Dept Plans for Post Hospital Care: Home History of present illness: Ms. Cowan is a 42 year old female with history of bipolar disorder, hypothyroidism cardiac arrhythmia, PCOS, pericardial effusion and recent right ureteral stent who presents to [facility] from [facility] with complaint of altered mental status and fall. The patient is noncommunicative, however she is accompanied by a salesperson books who provides most of her history. Her salesperson books mentions that starting of this past week the patient was not acting as she normally does. She was initially taken to the hospital and was told that should a kidney stone that it would pass and was sent home. She then presented to the hospital again on Wednesday and was similarly sent home. Finally she presented again on Wednesday and had a stent placed in the right ureter on Wednesday morning. According to her salesperson books, the patient has been acting inappropriately since the stone was initially found. She apparently has been throwing herself on the floor, crying out in pain and refusing to eat or drink. In addition of this she has been having intermittent episodes of lethargy. Apparently she has had no fevers, nausea or vomiting to the knowledge of the salesperson books. She does admit to some mild hematuria which she was told would be normal according to the urologist. They have noticed no change in urinary color, consistency or urinary frequency. The patient did have a fall at which time she hit her right back, with no knowledge of whether or not she hit her head. In the ED at [facility], patient had a CT of her head which was negative for any intracranial process. She also had a CT of her abdomen and pelvis which demonstrated a right renal calculi in the mid pole calyx with an additional adrenal mass which was partially calcified. The CT of the abdomen also demonstrated a large pericardial effusion which was apparently stable from previous. The patient's salesperson books does mention that she has had this pericardial effusion for some time and has been worked up by cardiology who did not feel that there is any need to intervene at this time. Labs showed sodium 138 potassium 3.5 chloride 102 bicarbonate 30 BUNs and 17 creatinine 0.85 glucose 106. WBC 8.8 hemoglobin 13.4 platelets 234. UA demonstrated large leukocyte esterase with positive Leiden 50 WBCs. The patient was transferred to [facility] for further workup and management. Past Med Surg Social Fam HX - Past Medical History Medical history: other Additional medical history: PCOS, arrythmia Psychiatric history: bipolar, schizophrenia, other - Social History Smoking Status: Never smoker Smokeless Tobacco Status: No Alcohol use: none Drug use: none ROS unobtainable: due to mental status All Systems PM: A 10-system review of systems was performed and is negative for pertinent findings except as documented above in the HPI. - Constitutional Vitals: Temp Pulse Resp BP Pulse Ox 98.3 F 98 15 135/80 99 11/20/17 02:03 11/20/17 02:03 11/20/17 02:03 11/20/17 02:03 11/20/17 02:03 Exam: Gen: Vitals noted. No acute distress. Patient does not respond to commands HEENT: Normocephalic, atraumatic Neck: Supple. No adenopathy. Cardiac: RRR, no murmur, +S1/S2 Pulmonary: CTA bilaterally, no wheezes, rales or rhonchi, equal chest expansion Abdomen: soft, nontender, no guarding Back: Nontender throughout. MSK: ROM intact, no joint swelling noted Extremities: no BLE edema, nontender calf, no cyanosis or clubbing Neuro: moves all extremities - Assessment and plan (1) Encephalopathy Current Visit: Yes Status: Acute Assessment and plan: Acute encephalopathy per salesperson books, likely secondary to pain Possibly secondary to UTI in setting of Renal calculi Urinalysis with microscopic and culture pending Head CT was negative for intracranial abnormality We will manage pain while the patient is here (2) Kidney stone Current Visit: Yes Status: Acute Assessment and plan: Right renal calculi, redemonstrated on abdominal CT Patient had placement of R. ureteral stent on 11/15/[address] Myrick but continues to have pain and has not passed stone We will consule Urology for management (3) S/P ureteral stent placement Current Visit: Yes Status: Acute Assessment and plan: As above (4) Bipolar disorder Current Visit: No Status: Chronic Assessment and plan: Continue home psych meds Qualifiers: Active/Remission status: remission status unspecified Qualified Code(s): F31.9 - Bipolar disorder, unspecified (5) Pericardial effusion Current Visit: Yes Status: Acute Assessment and plan: Demonstrated on CT exam Patient has apparently been seen and evaluated by cardiology as outpatient Monitor for symptoms, consider CT Surgery consult if needed (6) Hypothyroidism Current Visit: Yes Status: Acute Assessment and plan: TSH within normal limits at [facility] Continue Levothyroxine Qualifiers: Hypothyroidism type: unspecified Qualified Code(s): E03.9 - Hypothyroidism , unspecified (7) DVT prophylaxis Current Visit: Yes Status: Acute Assessment and plan: SQ Heparin - Time Spent With Patient Total time spent is greater than 50% in coordination of care (as documented) at patient's floor/unit and/or counseling patient:
[2017-11-20] MEDS ORDERED: Naloxone 0.4 MG/ML INJ IVP PRN (02:45)
[2017-11-20] MEDS ORDERED: Ondansetron 4 MG/2 ML VIAL IVP PRN (02:51)
[2017-11-20] MEDS: OXYCODONE Oral CONC 10 MG/0.5 ML ORAL.SYG SL PRN ×5 (03:34→20:08)
[2017-11-20 05:01] LABS: Basophils % 0.1 %; Eosinophils % 0.1 %; Hematocrit 41.3 % (35.3-44.9); Hemoglobin 13.6 g/dL (11.5-15.4); Immature Granulocytes % 0.1 % (0-4); Lymphocytes # 0.3 K/mcL (0.6-4.6); Lymphocytes % 4.1 %; Mean Corpuscular HGB Conc 32.9 g/dL (31.6-35.5); Mean Corpuscular Hemoglobin 32.2 pg (28.0-33.3); Mean Corpuscular Volume 97.9 fL (83.0-100.0); Mean Platelet Volume 10.4 fL (9.4-12.4); Monocytes # 0.3 K/mcL (0.0-1.3); Monocytes % 3.4 %; Neutrophils # 6.7 K/mcL (1.6-8.9); Platelet Count 221 K/mcL (140-400); Red Blood Count 4.22 M/mcL (3.82-4.97); Red Cell Distribution Width 13.7 % (11.5-14.5); Segmented Neutrophils % 92.2 %
[2017-11-20 05:05] LABS: Prothrombin Time 11.6 Seconds (9.4-12.1)
[2017-11-20 05:22] LABS: Alanine Aminotransferase 11 Units/L (7-52); Albumin 3.5 g/dL (3.5-5.7); Albumin/Globulin Ratio 1.3 (1.1-2.2); Alkaline Phosphatase 57 Units/L (34-104); Aspartate Amino Transferase 21 Units/L (13-39); BUN/Creatinine Ratio 17 (6-26); Bilirubin,Total 0.7 mg/dL (0.3-1.0); Blood Urea Nitrogen 13 mg/dL (6-20); Carbon Dioxide 25 mEq/L (23-29); Chloride 107 mEq/L (98-107); Globulin 2.8 g/dL (2.4-3.5); Glucose 109 mg/dL (70-105); Magnesium 1.3 mg/dL (1.6-2.6); Osmolality,Calculated 295 (280-300); Phosphorous 1.9 mg/dL (2.7-4.5); Sodium 142 mEq/L (136-145); Total Protein 6.3 g/dL (6.4-8.9); eGFR For Non-African Americans > 60 (> 60)
[2017-11-20] MEDS: Levothyroxine 25 MCG TABLET PO SCH (05:51)
[2017-11-20] MEDS: *HR* Heparin 5,000 UNIT/ML VIAL SQ SCH ×2 (05:51→18:10)
--- NOTE | 2017-11-20 07:53 | Urology Progress Note ---
Date of Encounter: 11/20/17 Time of Encounter: 07:49 - Assessment and Plan (1) S/P ureteral stent placement Current Visit: Yes Status: Acute Assessment and plan: unsure etilogy of behavioral issues. stent when placed did appear to be in appropriate position. urine cx was neg. definitive surgery planned but unlikely to be performed while she is in hospital. labs are all OK. vitals unconcerning. if symptoms do not resolve repet CT stone protocol Progress Note Narrative: patient continues to have behavioral issues and readmitted. pt not eating well and staff at her home concerned. Objective Initial Vital Signs Temp Pulse Resp BP Pulse Ox 98.3 F 98 15 135/80 99 11/20/17 02:03 11/20/17 02:03 11/20/17 02:03 11/20/17 02:03 11/20/17 02:03 - Additional Exam pt yelling and noncompliant with exam. - Labs 11/20/17 03:52 11/20/17 03:52 Diabetes panel 11/20/17 Range/Units 03:52 Sodium 142 (136-145) mEq/L Potassium 3.0 L (3.5-5.1) mEq/L Chloride 107 (98-107) mEq/L Carbon Dioxide 25 (23-29) mEq/L BUN 13 (6-20) mg/dL Creatinine 0.76 (0.60-1.20) mg/dL Glucose 109 H (70-105) mg/dL Calcium 9.0 (8.6-10.3) mg/dL AST 21 (13-39) Units/L ALT 11 (7-52) Units/L Alkaline Phosphatase 57 (34-104) Units/L Albumin 3.5 (3.5-5.7) g/dL Calcium panel 11/20/17 Range/Units 03:52 Calcium 9.0 (8.6-10.3) mg/dL Phosphorus 1.9 L (2.7-4.5) mg/dL Albumin 3.5 (3.5-5.7) g/dL Pituitary panel 11/20/17 Range/Units 03:52 Sodium 142 (136-145) mEq/L Potassium 3.0 L (3.5-5.1) mEq/L Chloride 107 (98-107) mEq/L Carbon Dioxide 25 (23-29) mEq/L BUN 13 (6-20) mg/dL Creatinine 0.76 (0.60-1.20) mg/dL Glucose 109 H (70-105) mg/dL Calcium 9.0 (8.6-10.3) mg/dL Adrenal panel 11/20/17 Range/Units 03:52 Sodium 142 (136-145) mEq/L Potassium 3.0 L (3.5-5.1) mEq/L Chloride 107 (98-107) mEq/L Carbon Dioxide 25 (23-29) mEq/L BUN 13 (6-20) mg/dL Creatinine 0.76 (0.60-1.20) mg/dL Glucose 109 H (70-105) mg/dL Calcium 9.0 (8.6-10.3) mg/dL Total Bilirubin 0.7 (0.3-1.0) mg/dL AST 21 (13-39) Units/L ALT 11 (7-52) Units/L Alkaline Phosphatase 57 (34-104) Units/L Albumin 3.5 (3.5-5.7) g/dL Consult Discharge Plan - Plan Referrals: Christiano Bull MD [Primary Care Provider] -
[2017-11-20 09:06] LABS: Bilirubin,Urine Negative (Negative); Blood,Urine Large (Negative); Color,Urine Yellow (Yellow); Glucose,Urine (UA) Normal (Normal); Ketones,Urine Negative (Negative); Leukocyte Esterase,Urine Large (Negative); Nitrite,Urine Negative (Negative); PH,Urine 6.5 pH Units (5.0-8.0); Protein,Urine 100 mg/dL (Neg-Trace); Specific Gravity,Urine 1.009 (1.010-1.025); Urobilinogen,Urine Normal (Normal)
[2017-11-20 09:09] LABS: Bacteria,Urine None Seen per hpf (None-Few); Clarity,Urine Hazy (Clear); Hyaline Casts,Urine None Seen per lpf (None-Few); RBC,Urine TNTC per hpf (0-3); Squamous Epithelial Cell,Urine Many per lpf (None-Few); WBC,Urine TNTC per hpf (0-3)
[2017-11-20] MEDS: 0.9 % Sodium Chloride 1,000 ML IVC SCH ×2 (10:53→20:00)
[2017-11-20] MEDS: Loratadine 10 MG TABLET PO SCH (11:25)
--- NOTE | 2017-11-20 13:20 | Internal Med Progress Note ---
<Altagracia Nunez - Last Filed: 11/20/17 15:17> Hospitalist Progress Note - Encounter Date of Encounter: 11/20/17 Time of Encounter: 10:17 - Subjective Interval History: Sheryl Cowan is a 42 year old female with developmental delay and history multiple psychiatric disorders who was recently admitted on 11/17 due to UTI and nephrolithiasis and was found to have 1.4cm stone at the [facility] and was dischared on 11/17 s/p stent placement. She presented to the [facility] ED yesterday with her farm or ranch animal caretaker due to no improvement, loss of appetite, irritability and unclear complaints of pain. She was transferred here for further management. She removed her IV 3 times this morning, at which point it was decided she was ok to not have an IV at this time. Per nursing she was crying out in pain this morning, but has done much better since getting her pain medication. She was found lying comfortably in bed asking to go pee. Her farm or ranch animal caretaker was not present to answer questions and the patient was not responding to questioning. She was later seen sleeping comfortably in bed. - Exam Vitals: Temp Pulse Resp BP Pulse Ox 98.3 F 95 16 116/63 93 11/20/17 12:51 11/20/17 12:51 11/20/17 12:51 11/20/17 12:51 11/20/17 12:51 Exam: Gen: NAD. Patient does not respond to commands HEENT: Normocephalic, atraumatic Cardiac: RRR, no murmur, normal S1/S2 Pulmonary: CTAB, no wheezes Abdomen: soft, nontender, no guarding Extremities: no BLE edema, nontender calf, no cyanosis or clubbing Neuro: No focal deficits Psych: MRDD, non-verbal - Assessment and Plan (1) Encephalopathy Current Visit: Yes Status: Acute Assessment and Plan: Unclear etiology, likely secondary to pain or possible UTI or head trauma from fall Difficult to assess d/t farm or ranch animal caretaker not being present and patient being non-verbal Repeat UA with large leuk esterase, WBC TNTC, large blood, many squamous cells Head CT at [facility] - negative for acute intracranial findings Patient yelling in pain this morning, doing better with pain medication, able to sleep comfortably now Continue oxy 10 for pain PRN Will continue to monitor and attempt to discuss with caregiver to determine patient's baseline (2) Kidney stone Current Visit: Yes Status: Acute Assessment and Plan: S/p ureteral stent placement on 11/16 for right 1.4cm UPJ stone with severe hydronephrosis Patient was to follow up with Dr. Myrick to discuss stone extraction procedure Patient has not improved per caregiver report, continues to have pain and has not passed stone Urology following, appreciate recommendations Continue Oxy 10 PRN for pain (3) Bipolar disorder Current Visit: No Status: Chronic Assessment and Plan: Continue home medications (4) Hypothyroidism Current Visit: Yes Status: Acute Assessment and Plan: TSH within normal limits at [facility] Continue Levothyroxine (5) Pericardial effusion Current Visit: Yes Status: Acute Assessment and Plan: Demonstrated on CT exam at [facility] 11/12 Patient has apparently been seen and evaluated by cardiology as outpatient Monitor for symptoms, consider CT Surgery consult if needed - Time Spent with Patient Total time spent is greater than 50% in coordination of care (as documented) at patient's floor/unit and/or counseling patient: Internal Medicine: Result - Labs CBC & Chem 7: 11/20/17 03:52 11/20/17 03:52 Labs: Short CBC 11/20/17 Range/Units 03:52 WBC 7.3 (4.3-11.1) K/mcL Hgb 13.6 (11.5-15.4) g/dL Hct 41.3 (35.3-44.9) % Plt Count 221 (140-400) K/mcL Neutrophils # 6.7 (1.6-8.9) K/mcL BMP 11/20/17 03:52 Sodium 142 Potassium 3.0 L Chloride 107 Carbon Dioxide 25 BUN 13 Creatinine 0.76 Glucose 109 H Calcium 9.0 Liver Function 11/20/17 Range/Units 03:52 Total Bilirubin 0.7 (0.3-1.0) mg/dL AST 21 (13-39) Units/L ALT 11 (7-52) Units/L Alkaline Phosphatase 57 (34-104) Units/L Albumin 3.5 (3.5-5.7) g/dL Urine 11/20/17 Range/Units 08:42 Urine Color Yellow (Yellow) Urine Clarity Hazy A (Clear) Urine pH 6.5 (5.0-8.0) pH Units Ur Specific [place] 1.009 L (1.010-1.025) Urine Protein 100 H (Neg-Trace) mg/dL Urine Glucose (UA) Normal (Normal) mg/dL - ABG Interpretation ABG results: PT/INR, D-dimer PT 11.6 Seconds (9.4-12.1) 11/20/17 03:52 Consult Discharge Plan - Plan Referrals: Christiano Bull MD [Primary Care Provider] - <Melvin Apple - Last Filed: 11/20/17 16:31> Hospitalist Progress Note - Encounter Date of Encounter: 11/20/17 - Exam Vitals: Temp Pulse Resp BP Pulse Ox 98.3 F 95 16 116/63 93 11/20/17 12:51 11/20/17 12:51 11/20/17 12:51 11/20/17 12:51 11/20/17 12:51 - Assessment and Plan (1) Kidney stone Current Visit: Yes Status: Acute (2) S/P ureteral stent placement Current Visit: Yes Status: Acute (3) DVT prophylaxis Current Visit: Yes Status: Acute (4) Bipolar disorder Current Visit: No Status: Chronic (5) Hypothyroidism Current Visit: Yes Status: Acute (6) Encephalopathy Current Visit: Yes Status: Acute (7) Pericardial effusion Current Visit: Yes Status: Acute - Time Spent with Patient Total time spent is greater than 50% in coordination of care (as documented) at patient's floor/unit and/or counseling patient: Internal Medicine: Result - Labs CBC & Chem 7: 11/20/17 03:52 11/20/17 03:52 Labs: Short CBC 11/20/17 Range/Units 03:52 WBC 7.3 (4.3-11.1) K/mcL Hgb 13.6 (11.5-15.4) g/dL Hct 41.3 (35.3-44.9) % Plt Count 221 (140-400) K/mcL Neutrophils # 6.7 (1.6-8.9) K/mcL BMP 11/20/17 03:52 Sodium 142 Potassium 3.0 L Chloride 107 Carbon Dioxide 25 BUN 13 Creatinine 0.76 Glucose 109 H Calcium 9.0 Liver Function 11/20/17 Range/Units 03:52 Total Bilirubin 0.7 (0.3-1.0) mg/dL AST 21 (13-39) Units/L ALT 11 (7-52) Units/L Alkaline Phosphatase 57 (34-104) Units/L Albumin 3.5 (3.5-5.7) g/dL Urine 11/20/17 Range/Units 08:42 Urine Color Yellow (Yellow) Urine Clarity Hazy A (Clear) Urine pH 6.5 (5.0-8.0) pH Units Ur Specific [place] 1.009 L (1.010-1.025) Urine Protein 100 H (Neg-Trace) mg/dL Urine Glucose (UA) Normal (Normal) mg/dL - ABG Interpretation ABG results: PT/INR, D-dimer PT 11.6 Seconds (9.4-12.1) 11/20/17 03:52 - Attending Attestation I examined this patient and my medical decision-making was reviewed with the Resident Physician on 11/20/17. I agree with the documented findings, disposition and treatment plan as described except to the extent set forth below. Ms Cowan was admitted earlier today with behavioral issues felt due to pain. She is resting comfortably at this time after given pain med. Exam Comfortable resting in bed Heart not tachy No wheeze Agree with plan as above and in H&P <Altagracia Nunez - Last Filed: 11/20/17 15:17> (3) Bipolar disorder Qualifiers: Active/Remission status: remission status unspecified Qualified Code(s): F31.9 - Bipolar disorder, unspecified (4) Hypothyroidism Qualifiers: Hypothyroidism type: unspecified Qualified Code(s): E03.9 - Hypothyroidism, unspecified <Melvin Apple A - Last Filed: 11/20/17 16:31> (4) Bipolar disorder Qualifiers: Active/Remission status: remission status unspecified Qualified Code(s): F31.9 - Bipolar disorder, unspecified (5) Hypothyroidism Qualifiers: Hypothyroidism type: unspecified Qualified Code(s): E03.9 - Hypothyroidism, unspecified
[2017-11-20] MEDS ORDERED: cefTRIAXone 1,000 MG in Water for inj. (sterile) 20 ML 10 ML IVP SCH (18:00)
[2017-11-20] MEDS: Sulfamethoxazole/Trimeth DS 1 EACH TABLET PO SCH (20:08)
[2017-11-20] MEDS ORDERED: Dextrose Gel 15 GM/37.5 ML TUBE PO PRN ×2 (20:44)
[2017-11-20] MEDS ORDERED: D5% in Water 1,000 ML IVC PRN (20:44)
[2017-11-20] MEDS ORDERED: *HR* Dextrose 50 % in Water (Syg) 50 ML SYRINGE IVP PRN (20:44)
[2017-11-20] MEDS ORDERED: traMADol 50 MG TABLET PO ONE (22:10)
[2017-11-20] MEDS: Insulin LISPRO 300 UNITS/3 ML VIAL SQ SCH (22:11)
[2017-11-21] MEDS: Meropenem 1,000 MG in Water for inj. (sterile) 20 ML 10 ML IVPB SCH ×2 (00:05→09:42)
[2017-11-21 01:21] LABS: Basophils % 0.3 %; Eosinophils % 1.3 %; Hematocrit 34.8 % (35.3-44.9); Immature Granulocytes % 0.3 % (0-4); Lymphocytes % 11.3 %; Mean Corpuscular HGB Conc 33.3 g/dL (31.6-35.5); Mean Corpuscular Hemoglobin 32.6 pg (28.0-33.3); Mean Corpuscular Volume 97.8 fL (83.0-100.0); Mean Platelet Volume 10.4 fL (9.4-12.4); Monocytes % 8.3 %; Platelet Count 166 K/mcL (140-400); Red Blood Count 3.56 M/mcL (3.82-4.97); Red Cell Distribution Width 13.9 % (11.5-14.5); Segmented Neutrophils % 78.5 %
[2017-11-21 01:22] LABS: Eosinophils # 0.1 K/mcL (0.0-0.6); Hemoglobin 11.6 g/dL (11.5-15.4); Lymphocytes # 0.7 K/mcL (0.6-4.6); Monocytes # 0.5 K/mcL (0.0-1.3)
[2017-11-21 01:33] LABS: BUN/Creatinine Ratio 15 (6-26); Blood Urea Nitrogen 13 mg/dL (6-20); Calcium 8.4 mg/dL (8.6-10.3); Carbon Dioxide 26 mEq/L (23-29); Chloride 105 mEq/L (98-107); Glucose 93 mg/dL (70-105); Osmolality,Calculated 286 (280-300); Potassium 2.9 mEq/L (3.5-5.1); Sodium 138 mEq/L (136-145); eGFR For Non-African Americans > 60 (> 60)
[2017-11-21] MEDS: OXYCODONE Oral CONC 10 MG/0.5 ML ORAL.SYG SL PRN ×5 (02:15→23:01)
[2017-11-21] MEDS: Acetaminophen 325 MG TABLET PO PRN (04:14)
[2017-11-21] MEDS: *HR* Heparin 5,000 UNIT/ML VIAL SQ SCH ×2 (06:02→18:48)
[2017-11-21] MEDS: Levothyroxine 25 MCG TABLET PO SCH (06:03)
[2017-11-21] MEDS: Insulin LISPRO 300 UNITS/3 ML VIAL SQ SCH ×4 (07:31→21:20)
[2017-11-21] MEDS: Sulfamethoxazole/Trimeth DS 1 EACH TABLET PO SCH (09:42)
[2017-11-21] MEDS: Piperacillin/Tazobactam 3.375 GM in 0.9 % Sodium Chloride Mini Bag 100 ML IVPB SCH ×2 (09:56→18:49)
[2017-11-21] MEDS: Loratadine 10 MG TABLET PO SCH (09:56)
[2017-11-21] MEDS: 0.9 % Sodium Chloride 1,000 ML IVC SCH (11:14)
--- NOTE | 2017-11-21 11:41 | Internal Med Progress Note ---
<Altagracia Nunez - Last Filed: 11/21/17 14:24> Hospitalist Progress Note - Encounter Date of Encounter: 11/21/17 Time of Encounter: 08:30 - Subjective Interval History: Sheryl Cowan is a 42 year old female with developmental delay and history multiple psychiatric disorders who was recently admitted on 11/17 due to UTI and nephrolithiasis and was found to have 1.4cm stone at the [facility] and was dischared on 11/17 s/p stent placement. She presented to the [facility] ED on 11/20 with her esthetician due to no improvement, loss of appetite, irritability and unclear complaints of pain. She was transferred here for further management. Per nursing and esthetician, patient is not at her baseline. She typically cares for her own basic needs and is able to have full conversations. She remains non- verbal at this time and was seen awake and lying comfortably in bed this morning. - Exam Vitals: Temp Pulse Resp BP Pulse Ox 98.3 F 89 16 109/67 92 11/21/17 11:15 11/21/17 11:15 11/21/17 11:15 11/21/17 11:15 11/21/17 11:15 Exam: Gen: NAD. Patient does not respond to commands HEENT: Normocephalic, atraumatic Cardiac: RRR, no murmur, normal S1/S2 Pulmonary: CTAB, no wheezes Abdomen: soft, nontender, no guarding Extremities: no BLE edema, nontender calf, no cyanosis or clubbing Neuro: No focal deficits Psych: MRDD, non-verbal - Assessment and Plan (1) Bacteremia Current Visit: Yes Status: Acute Assessment and Plan: Likely d/t UTI secondary to kidney stone Blood cultures drawn at [facility] 11/15 - prelim gram positive cocci (non-staph aureus Methicillin resistent gene +), gram negative rods Repeat UA 11/20 - large leuk esterase, WBC TNTC, large blood, many squamous cells Urine culture at [facility] 11/15 - negative Repeat urine culture 11/20 - prelim gram negative rods WBC 7.3 on presentation, 6.3 today Discontinued Bactrim day 2 Discontinued Meropenum day 1 Started Vanc and Zosyn day 1 Repeat blood cultures pending Urology following (2) Encephalopathy Current Visit: Yes Status: Acute Assessment and Plan: Likely d/t bacteremia secondary to UTI At baseline, patient is able to care for her own basic needs and hold full conversations She continues to be non-verbal at this time Head CT at [facility] - negative for acute intracranial findings See above Will monitor closely (3) Kidney stone Current Visit: Yes Status: Acute Assessment and Plan: S/p ureteral stent placement on 11/16 for right 1.4cm [facility] stone with severe hydronephrosis UTI likely secondary to kidney stone CT A/P from [facility] 11/19 - demonstrated a right renal calculi in the mid pole calyx with an additional adrenal mass which was partially calcified and large pericardial effusion which was stable from previous. Urology following - Positioning of stent and stone as expected, kidney now able to drain. Plan for surgery after resolution of bacteremia. Continue Oxy 10 PRN for pain (4) UTI (urinary tract infection) Current Visit: Yes Status: Acute Assessment and Plan: Likely secondary to kidney stone Repeat UA 11/20 - large leuk esterase, WBC TNTC, large blood, many squamous cells Urine culture at [facility] 11/15 - negative Repeat urine culture 11/20 - prelim gram negative rods Blood cultures drawn at [facility] 11/15 - prelim gram positive cocci, gram negative rods Repeat blood cultures pending Continue abx as above Will continue to monitor (5) Bipolar disorder Current Visit: No Status: Chronic Assessment and Plan: Continue home medications (6) Hypothyroidism Current Visit: Yes Status: Acute Assessment and Plan: TSH within normal limits at [facility] Continue Levothyroxine (7) Pericardial effusion Current Visit: Yes Status: Acute Assessment and Plan: Redemonstrated on CT exam at [facility] 11/19 Patient has apparently been seen and evaluated by cardiology as outpatient Monitor for symptoms, consider CT Surgery consult if needed DVT Prophylaxis: SQ Heparin - Time Spent with Patient Total time spent is greater than 50% in coordination of care (as documented) at patient's floor/unit and/or counseling patient: Internal Medicine: Result - Labs CBC & Chem 7: 11/21/17 00:46 11/21/17 00:46 Labs: Short CBC 11/21/17 Range/Units 00:46 WBC 6.3 (4.3-11.1) K/mcL Hgb 11.6 D (11.5-15.4) g/dL Hct 34.8 L (35.3-44.9) % Plt Count 166 (140-400) K/mcL Neutrophils # 5.0 (1.6-8.9) K/mcL BMP 11/21/17 00:46 Sodium 138 Potassium 2.9 L Chloride 105 Carbon Dioxide 26 BUN 13 Creatinine 0.87 Glucose 93 Calcium 8.4 L - ABG Interpretation ABG results: PT/INR, D-dimer PT 11.6 Seconds (9.4-12.1) 11/20/17 03:52 Consult Discharge Plan - Plan Referrals: Christiano Bull MD [Primary Care Provider] - <Melvin Apple - Last Filed: 11/21/17 16:29> Hospitalist Progress Note - Encounter Date of Encounter: 11/21/17 - Exam Vitals: Temp Pulse Resp BP Pulse Ox 98.3 F 89 16 109/67 92 11/21/17 11:15 11/21/17 11:15 11/21/17 11:15 11/21/17 11:15 11/21/17 11:15 - Assessment and Plan (1) Metabolic encephalopathy Current Visit: Yes Status: Acute (2) Kidney stone Current Visit: Yes Status: Acute (3) S/P ureteral stent placement Current Visit: Yes Status: Acute (4) DVT prophylaxis Current Visit: Yes Status: Acute (5) Bipolar disorder Current Visit: No Status: Chronic (6) Hypothyroidism Current Visit: Yes Status: Acute (7) Encephalopathy Current Visit: Yes Status: Acute (8) Pericardial effusion Current Visit: Yes Status: Acute (9) UTI (urinary tract infection) Current Visit: Yes Status: Acute (10) Bacteremia Current Visit: Yes Status: Acute - Time Spent with Patient Total time spent is greater than 50% in coordination of care (as documented) at patient's floor/unit and/or counseling patient: Internal Medicine: Result - Labs CBC & Chem 7: 11/21/17 00:46 11/21/17 00:46 Labs: Short CBC 11/21/17 Range/Units 00:46 WBC 6.3 (4.3-11.1) K/mcL Hgb 11.6 D (11.5-15.4) g/dL Hct 34.8 L (35.3-44.9) % Plt Count 166 (140-400) K/mcL Neutrophils # 5.0 (1.6-8.9) K/mcL BMP 11/21/17 00:46 Sodium 138 Potassium 2.9 L Chloride 105 Carbon Dioxide 26 BUN 13 Creatinine 0.87 Glucose 93 Calcium 8.4 L - ABG Interpretation ABG results: PT/INR, D-dimer PT 11.6 Seconds (9.4-12.1) 11/20/17 03:52 - Attending Attestation I examined this patient and my medical decision-making was reviewed with the Resident Physician on 11/21/17. I agree with the documented findings, disposition and treatment plan as described except to the extent set forth below. Ms Cowan is currently admitted for pain associated with renal stone and encephalopathy. She has been found to be bacteremic with Proteus and staph. She remains moderate to high risk due to potential for worsening clinical status. Ms Cowan is comfortable at this time. No fever or chills. Appears more comfortable at this time. Blood cx from [facility] are positive for Proteus and staph species. Abx changed last night. Appears to be more alert and comfortable today. Exam Alert Comfortable at this time Mucus membranes dry Not tachycardic No wheeze I/P 1. Encephalopathy 2. Proteus bacteremia 3. UTI Further diagnoses and plan as above. <Altagracia Nunez - Last Filed: 11/21/17 14:24> (5) Bipolar disorder Qualifiers: Active/Remission status: remission status unspecified Qualified Code(s): F31.9 - Bipolar disorder, unspecified (6) Hypothyroidism Qualifiers: Hypothyroidism type: unspecified Qualified Code(s): E03.9 - Hypothyroidism, unspecified <Melvin Apple - Last Filed: 11/21/17 16:29> (5) Bipolar disorder Qualifiers: Active/Remission status: remission status unspecified Qualified Code(s): F31.9 - Bipolar disorder, unspecified (6) Hypothyroidism Qualifiers: Hypothyroidism type: acquired Qualified Code(s): E03.9 - Hypothyroidism, unspecified (9) UTI (urinary tract infection) Qualifiers: Urinary tract infection type: acute cystitis Hematuria presence: with hematuria Qualified Code(s): N30.01 - Acute cystitis with hematuria
[2017-11-22] MEDS: Piperacillin/Tazobactam 3.375 GM in 0.9 % Sodium Chloride Mini Bag 100 ML IVPB SCH ×3 (01:47→18:17)
[2017-11-22] MEDS: OXYCODONE Oral CONC 10 MG/0.5 ML ORAL.SYG SL PRN ×3 (03:13→18:27)
[2017-11-22] MEDS: 0.9 % Sodium Chloride 1,000 ML IVC SCH ×2 (03:15→18:26)
[2017-11-22] MEDS: Levothyroxine 25 MCG TABLET PO SCH (05:48)
[2017-11-22] MEDS: *HR* Heparin 5,000 UNIT/ML VIAL SQ SCH ×2 (05:49→18:17)
[2017-11-22] MEDS ORDERED: Aminoglycoside Consult 1 EACH MC ONE (08:08)
--- NOTE | 2017-11-22 09:07 | Internal Med Progress Note ---
<Melvin Apple - Last Filed: 11/22/17 15:11> Hospitalist Progress Note - Encounter Date of Encounter: 11/22/17 - Exam Vitals: Temp Pulse Resp BP Pulse Ox 97.7 F 77 16 158/76 92 11/22/17 11:34 11/22/17 11:34 11/22/17 11:34 11/22/17 11:34 11/22/17 11:34 - Assessment and Plan (1) Metabolic encephalopathy Current Visit: Yes Status: Acute (2) Kidney stone Current Visit: Yes Status: Acute (3) S/P ureteral stent placement Current Visit: Yes Status: Acute (4) DVT prophylaxis Current Visit: Yes Status: Acute (5) Bipolar disorder Current Visit: No Status: Chronic (6) Hypothyroidism Current Visit: Yes Status: Chronic (7) Encephalopathy Current Visit: Yes Status: Acute (8) Pericardial effusion Current Visit: Yes Status: Acute (9) UTI (urinary tract infection) Current Visit: Yes Status: Acute (10) Bacteremia Current Visit: Yes Status: Acute - Time Spent with Patient Total time spent is greater than 50% in coordination of care (as documented) at patient's floor/unit and/or counseling patient: Internal Medicine: Result - Labs CBC & Chem 7: 11/22/17 09:43 11/22/17 09:43 Labs: Short CBC 11/22/17 Range/Units 09:43 WBC 4.5 (4.3-11.1) K/mcL Hgb 11.5 (11.5-15.4) g/dL Hct 34.7 L (35.3-44.9) % Plt Count 189 (140-400) K/mcL Neutrophils # 3.1 (1.6-8.9) K/mcL BMP 11/22/17 09:43 Sodium 142 Potassium 3.0 L Chloride 110 H Carbon Dioxide 24 BUN 12 Creatinine 0.92 Glucose 121 H Calcium 7.7 L - ABG Interpretation ABG results: PT/INR, D-dimer PT 11.6 Seconds (9.4-12.1) 11/20/17 03:52 Consult Discharge Plan - Plan Referrals: Christiano Bull MD [Primary Care Provider] - - Attending Attestation The history, physical exam, and medical decision making was performed by the medical student either while I was physically present and actively involved or I personally re-performed the exam and medical decision making. I have verified the accuracy of the medical student's documentation with regards to the history, physical exam findings, and medical decision making on 11/22/17. Ms Cowan is currently admitted for Proteus bacteremia and UTI associated with renal stone. She remains moderate to high risk due to potential for worsening clinical status. Ms Cowan is more talkative today. No fever or chills. Still with R side pain. No nausea or vomiting. Exam alert Comfortable at this time Mucus membranes dry Heart not tachy No wheeze No edema Abd soft I/P 1. Proteus bacteremia on abx. 2. UTI 3. Kidney stone Further diagnoses and plan as above. <Saud Duncan - Last Filed: 11/22/17 15:35> Hospitalist Progress Note - Encounter Date of Encounter: 11/22/17 Time of Encounter: 09:04 - Subjective Interval History: Pt seen and examined at bedside this morning. Resting comfortably, NAD. Pt non reliable historian. Pt awake and alert this morning. Complains of continued abdominal pain, as well as R flank pain from a fall. Pt tolerating diet. Nursing reports improvements in pts mentation since admission. - Exam Vitals: Temp Pulse Resp BP Pulse Ox 98.6 F 76 16 149/83 92 11/22/17 07:28 11/22/17 07:28 11/22/17 07:28 11/22/17 07:28 11/22/17 07:28 Exam: Gen: NAD. Pt responding to commands HEENT: Normocephalic, atraumatic Cardiac: RRR, no murmur, normal S1/S2 Pulmonary: CTA b/l; no rales or rhonchi Abdomen: Normoactive bowel sounds, soft, NT/nondistended, no guarding; mildly tender right flank Extremities: no b/l LE edema, nontender calf, no cyanosis or clubbing Neuro: No focal deficits - Assessment and Plan (1) Bacteremia Current Visit: Yes Status: Acute Assessment and Plan: secondary to UTI w/ nephrolithisasis Urine culture 11/15-no significant growth Blood cultures 11/19 - prelim gram positive for staph species and proteus species (non-staph aureus Methicillin resistent gene +)--> will tx with vanc and zoysn Urine culture 10/12-multidrug resistant proteus mirabilis-->sensitive to zosyn Vanc and Zosyn day 2 Discontinued Bactrim d/c after 2 days of tx Meropenum d/c after 1 day of tx Urology following (2) UTI (urinary tract infection) Current Visit: Yes Status: Acute Assessment and Plan: see above (3) Encephalopathy Current Visit: Yes Status: Acute Assessment and Plan: pt altered on presentation can hold converstation at baseline nursing reports improvements today pt verbal and answering questions today likely related to bacteremia (4) Kidney stone Current Visit: Yes Status: Acute Assessment and Plan: S/p ureteral stent placement on 11/16 for right 1.4cm UP[facility] stone with severe hydronephrosis CT A/P from [place] 11/19 - demonstrated a right renal calculi in the mid pole calyx with an additional adrenal mass which was partially calcified and large pericardial effusion which was stable from previous. Urology following - Plan for surgery after resolution of bacteremia. Continue Oxy 10 PRN for pain (5) Hypothyroidism Current Visit: Yes Status: Chronic Assessment and Plan: continue home medications (6) Bipolar disorder Current Visit: No Status: Chronic Assessment and Plan: continue home meds DVT Prophylaxis: SubQ heparin - Time Spent with Patient Total time spent is greater than 50% in coordination of care (as documented) at patient's floor/unit and/or counseling patient: Internal Medicine: Result - Labs CBC & Chem 7: 11/22/17 09:43 11/22/17 09:43 - ABG Interpretation ABG results: PT/INR, D-dimer PT 11.6 Seconds (9.4-12.1) 11/20/17 03:52 <Melvin Apple - Last Filed: 11/22/17 15:11> (5) Bipolar disorder Qualifiers: Active/Remission status: remission status unspecified Qualified Code(s): F31.9 - Bipolar disorder, unspecified (6) Hypothyroidism Qualifiers: Hypothyroidism type: acquired Qualified Code(s): E03.9 - Hypothyroidism, unspecified (9) UTI (urinary tract infection) Qualifiers: Urinary tract infection type: acute cystitis Hematuria presence: with hematuria Qualified Code(s): N30.01 - Acute cystitis with hematuria <Centore,Floyd - Last Filed: 11/22/17 15:35> (2) UTI (urinary tract infection) Qualifiers: Urinary tract infection type: acute cystitis Hematuria presence: with hematuria Qualified Code(s): N30.01 - Acute cystitis with hematuria (5) Hypothyroidism Qualifiers: Hypothyroidism type: acquired Qualified Code(s): E03.9 - Hypothyroidism, unspecified (6) Bipolar disorder Qualifiers: Active/Remission status: remission status unspecified Qualified Code(s): F31.9 - Bipolar disorder, unspecified
[2017-11-22] MEDS: Insulin LISPRO 300 UNITS/3 ML VIAL SQ SCH ×4 (09:30→21:07)
[2017-11-22] MEDS: Loratadine 10 MG TABLET PO SCH (09:33)
[2017-11-22 09:58] LABS: Basophils % 0.4 %; Eosinophils # 0.1 K/mcL (0.0-0.6); Eosinophils % 2.7 %; Hematocrit 34.7 % (35.3-44.9); Hemoglobin 11.5 g/dL (11.5-15.4); Immature Granulocytes % 0.4 % (0-4); Lymphocytes # 0.8 K/mcL (0.6-4.6); Lymphocytes % 16.7 %; Mean Corpuscular HGB Conc 33.1 g/dL (31.6-35.5); Mean Corpuscular Hemoglobin 32.4 pg (28.0-33.3); Mean Corpuscular Volume 97.7 fL (83.0-100.0); Monocytes # 0.5 K/mcL (0.0-1.3); Monocytes % 10.9 %; Neutrophils # 3.1 K/mcL (1.6-8.9); Platelet Count 189 K/mcL (140-400); Red Blood Count 3.55 M/mcL (3.82-4.97); Red Cell Distribution Width 13.9 % (11.5-14.5); Segmented Neutrophils % 68.9 %
[2017-11-22 10:16] LABS: BUN/Creatinine Ratio 13 (6-26); Blood Urea Nitrogen 12 mg/dL (6-20); Calcium 7.7 mg/dL (8.6-10.3); Carbon Dioxide 24 mEq/L (23-29); Chloride 110 mEq/L (98-107); Glucose 121 mg/dL (70-105); Osmolality,Calculated 295 (280-300); Sodium 142 mEq/L (136-145); eGFR For Non-African Americans > 60 (> 60)
[2017-11-22 12:11] LABS: Magnesium 1.3 mg/dL (1.6-2.6)
--- NOTE | 2017-11-22 20:16 | Infectious Disease Consult ---
Date of Encounter: 11/22/17 Time of Encounter: 20:10 Assessment and Plan (1) UTI (urinary tract infection) Status: Acute Assessment and plan: Causative organism is Proteus mirabilis urine culture grew Proteus mirabilis S: Bactrim, Zosyn, ertapenem and gentamicin ; R: Cephalosporins, fluoroquinolones, intermediate to imipenem. Continue Zosyn Qualifiers: Urinary tract infection type: acute cystitis Hematuria presence: with hematuria Qualified Code(s): N30.01 - Acute cystitis with hematuria (2) Bacteremia due to Gram-negative bacteria Status: Acute Assessment and plan: Culture 1 set on 11/19/2017 growing gram-negative lani; PCR showing Proteus species Likely source is urine Repeat blood cultures 2 Based on the Proteus mirabilis and that urine susceptibility pattern, agree with Zosyn Duration of treatment is probably 10-14 days from first negative culture Monitor labs and for drug toxicity (3) Bacteremia due to Gram-positive bacteria Status: Acute Assessment and plan: Appears to be only once and it coag-negative staph Likely contaminant Repeat cultures 2 June stop vancomycin and observe (4) Ureteral calculi Status: Acute (5) S/P ureteral stent placement Status: Acute (6) Metabolic encephalopathy Status: Acute Infectious Disease HPI - Data of Consult Patient: new to practice Consult date: 11/22/17 Requesting Physician: Melvin Apple DO Primary Care Provider: Christiano Bull MD - Consult Narrative History of present illness: Ms. Cowan is a 42 year old female Patient is a 42-year-old woman with developmental delay who apparently resides in senior care was transferred here for altered mental status. We are asked to evaluate for UTI with bacteremia with gram-positive cocci and gram-negative lani. Most of the information was taken from medical records since the patient is not a good historian. Patient apparently was recently admitted to [facility] on 2017 for kidney stones and under went a cystoscopy, right retrograde pyelogram. Right ureteral stent placement. Patient did have urine culture at that time and it revealed no growth. Patient apparently started acting confused and not herself and having more psychiatric issues so she was brought back to the ED for evaluation. Since admission patient has been febrile with a MAXIMUM TEMPERATURE of 100.8 Fahrenheit, tachycardic but no tachypnea. Presenting labs revealed normal WBC of 7.3 with 92% neutrophils no band. Kidney function was within normal limits. A urine analysis was obtained and it was not indicated for culture due to too many squamous epithelial cells. Apparently there was a urine culture obtained on 11/19/2017 but not sure how that came about. The urine culture grew Proteus mirabilis S: Bactrim, Zosyn, ertapenem and gentamicin; R: Cephalosporins, fluoroquinolones, intermediate to imipenem. Blood cultures were obtained on only one set and it grew gram-positive cocci and gram-negative rods. The gram-positive cocci appears to be coag-negative staph and gram-negative lani appears to be Proteus per PCR but final culture results are pending. Patient was started on vancomycin and Zosyn were asked to evaluate the patient and make further recommendations. Currently patient laying in bed makes eye contact and tracks me around the room but really does not answer questions. A sitter was at bedside. CC: Melvin Apple, DO Past Med Surg Social Fam HX - Past Medical History Medical history: other Additional medical history: PCOS, arrythmia Psychiatric history: bipolar, schizophrenia, other - Social History Smoking Status: Never smoker Smokeless Tobacco Status: No Alcohol use: none Drug use: none Infectious Disease-CN:Meds Acetaminophen [Tylenol] 1,000 mg PO BID PRN 11/15/17 [History] Atorvastatin [Lipitor] 40 mg PO HS 11/15/17 [History] Cetirizine HCl [Zyrtec] 10 mg PO DAILY 11/15/17 [History] Cyanocobalamin (Vitamin B-12) [Vitamin B12] 500 mcg PO DAILY 11/15/17 [History] DULoxetine [Cymbalta] 90 mg PO QAM 11/15/17 [History] Diclofenac Sodium [Voltaren] 75 mg PO BID 11/15/17 [History] Docusate Sodium [Dulcolax Stool Softener] 200 mg PO DAILY 11/15/17 [History] Haloperidol Decanoate [Haldol] 75 mg IM QMONTH 11/15/17 [History] Ibuprofen [Ibu] 400 mg PO Q8H PRN 11/15/17 [History] Levothyroxine [Synthroid] 25 mcg PO 0630 11/15/17 [History] Medroxyprogesterone Acetate [Provera] 10 mg PO DAILY PRN 11/15/17 [History] Nystatin POWDER [Nystop] 1 appl TP TID PRN 11/15/17 [History] Polyethylene Glycol 3350 [MiraLAX] 17 gm PO DAILY PRN 11/15/17 [History] Psyllium Husk [Fiber] 0.52 gm PO BID 11/15/17 [History] metFORMIN [Glucophage] 500 mg PO BIDWM 11/15/17 [History] Docusate [Colace] 100 mg PO BID #60 capsule 11/17/17 [Rx] HYDROcodone/Acet 5/325 mg [[place] 5-325 mg] 1 tab PO Q6H PRN 4 Days #15 tab 11/17 [Rx] 3 Allergy/AdvReac Type Severity Reaction Status Date / Time No Known Allergies Allergy Verified 11/15/17 14:58 ROS unobtainable: due to mental status Exam - Constitutional Vitals: Temp Pulse Resp BP Pulse Ox 98.4 F 72 15 128/81 94 11/22/17 19:05 11/22/17 19:05 11/22/17 19:05 11/22/17 19:05 11/22/17 19:05 General appearance: disheveled, no acute distress, no febrile, no cooperative - Head Head exam: Present: atraumatic, normocephalic - Eye Eye exam: Present: EOMI, PERRL - ENT ENT exam: Present: mucous membranes dry Additional comments: No oral lesions. Limited exam - Neck Neck exam: Present: normal inspection. Absent: lymphadenopathy - Respiratory Respiratory exam: Present: CTAB. Absent: wheezes - Cardiovascular Cardiovascular exam: Present: RRR, +S1, +S2 - GI/Abdominal GI/Abdominal exam: Present: normal bowel sounds, soft. Absent: tenderness - Extremities Exam Extremities exam: Present: normal inspection. Absent: joint swelling Additional comments: Limited exam but she seems to be moving all 4 extremities. - Back Exam Additional comments: Unable to assess for decubitus ulcer. - Neurological Exam Neurological exam: Present: alert, altered, speech deficit. Absent: oriented X3 - Psychiatric Psychiatric exam: Present: normal affect, normal mood - Skin Skin exam: Present: normal color. Absent: rash Infectious Disease CN: Results - Labs CBC & Chem 7: 11/22/17 09:43 11/22/17 09:43 Cultures: Cultures 11/20/17 08:42 Urine Culture - Final Urine,Catheterized No growth. 11/21/17 09:28 Blood Culture - Preliminary Peripheral Venipuncture Culture is incubating and being continuously monitored for growth. Final report to follow. 11/21/17 09:25 Blood Culture - Preliminary Peripheral Venipuncture Culture is incubating and being continuously monitored for growth. Final report to follow. Serology: Serology 11/20/17 Range/Units 08:42 Urine Color Yellow (Yellow) Urine Clarity Hazy A (Clear) Urine pH 6.5 (5.0-8.0) pH Units Ur Specific Jeff 1.009 L (1.010-1.025) Urine Protein 100 H (Neg-Trace) mg/dL Urine Glucose (UA) Normal (Normal) mg/dL Urine Ketones Negative (Negative) mg/dL Urine Blood Large H (Negative) Urine Nitrite Negative (Negative) Urine Bilirubin Negative (Negative) Urine Urobilinogen Normal (Normal) mg/dL Ur Leukocyte Esterase Large H (Negative) Urine Microscopic RBC TNTC H (0-3) per hpf Urine Microscopic WBC TNTC H (0-3) per hpf Ur Squamous Epith Cells Many H (None-Few) per lpf Urine Bacteria None Seen (None-Few) per hpf Hyaline Casts None Seen (None-Few) per lpf Ur Culture Indicated? NO. A (NO) Consult Discharge Plan - Plan Referrals: Christiano Bull MD [Primary Care Provider] -
[2017-11-23] MEDS: Piperacillin/Tazobactam 3.375 GM in 0.9 % Sodium Chloride Mini Bag 100 ML IVPB SCH ×3 (02:23→17:51)
[2017-11-23] MEDS: OXYCODONE Oral CONC 10 MG/0.5 ML ORAL.SYG SL PRN ×5 (02:23→23:26)
[2017-11-23] MEDS: Levothyroxine 25 MCG TABLET PO SCH (05:59)
[2017-11-23] MEDS: *HR* Heparin 5,000 UNIT/ML VIAL SQ SCH ×2 (06:00→17:51)
[2017-11-23 06:05] LABS: Basophils % 0.6 %; Eosinophils # 0.2 K/mcL (0.0-0.6); Eosinophils % 3.8 %; Hematocrit 35.9 % (35.3-44.9); Hemoglobin 11.6 g/dL (11.5-15.4); Immature Granulocytes % 0.6 % (0-4); Lymphocytes % 20.8 %; Mean Corpuscular HGB Conc 32.3 g/dL (31.6-35.5); Mean Corpuscular Hemoglobin 32.6 pg (28.0-33.3); Mean Corpuscular Volume 100.8 fL (83.0-100.0); Mean Platelet Volume 10.1 fL (9.4-12.4); Monocytes # 0.6 K/mcL (0.0-1.3); Monocytes % 12.6 %; Neutrophils # 2.9 K/mcL (1.6-8.9); Platelet Count 216 K/mcL (140-400); Red Blood Count 3.56 M/mcL (3.82-4.97); Red Cell Distribution Width 13.7 % (11.5-14.5); Segmented Neutrophils % 61.6 %
[2017-11-23] MEDS: 0.9 % Sodium Chloride 1,000 ML IVC SCH ×2 (06:26→18:49)
[2017-11-23 06:28] LABS: BUN/Creatinine Ratio 13 (6-26); Blood Urea Nitrogen 12 mg/dL (6-20); Calcium 8.6 mg/dL (8.6-10.3); Carbon Dioxide 23 mEq/L (23-29); Chloride 109 mEq/L (98-107); Glucose 87 mg/dL (70-105); Osmolality,Calculated 285 (280-300); Potassium 4.2 mEq/L (3.5-5.1); Sodium 138 mEq/L (136-145); eGFR For Non-African Americans > 60 (> 60)
[2017-11-23] MEDS: Insulin LISPRO 300 UNITS/3 ML VIAL SQ SCH ×4 (09:27→22:35)
[2017-11-23] MEDS: Loratadine 10 MG TABLET PO SCH (09:41)
--- NOTE | 2017-11-23 14:45 | Internal Med Progress Note ---
<Altagracia Nunez - Last Filed: 11/23/17 14:44> Hospitalist Progress Note - Encounter Date of Encounter: 11/23/17 - Subjective Interval History: Sheryl Cowan is a 42 year old female with developmental delay and history multiple psychiatric disorders who was recently admitted on 11/17 due to UTI and nephrolithiasis and was found to have 1.4cm stone at the UPJ and was dischared on 11/17 s/p stent placement. She presented to the [place] ED on 11/20 with her fixture designer due to no improvement, loss of appetite, irritability and unclear complaints of pain. She was transferred here for further management. Per nursing and fixture designer, patient is not at her baseline. She typically cares for her own basic needs and is able to have full conversations. She remains non- verbal at this time and was seen awake and lying comfortably in bed this morning. - Exam Vitals: Temp Pulse Resp BP Pulse Ox 98.5 F 75 17 131/75 95 11/23/17 09:34 11/23/17 06:32 11/23/17 06:32 11/23/17 06:32 11/23/17 06:32 - Assessment and Plan (1) Bacteremia Current Visit: Yes Status: Acute (2) Encephalopathy Current Visit: Yes Status: Acute (3) Kidney stone Current Visit: Yes Status: Acute (4) UTI (urinary tract infection) Current Visit: Yes Status: Acute (5) Bipolar disorder Current Visit: No Status: Chronic (6) Hypothyroidism Current Visit: Yes Status: Chronic (7) Pericardial effusion Current Visit: Yes Status: Acute - Time Spent with Patient Total time spent is greater than 50% in coordination of care (as documented) at patient's floor/unit and/or counseling patient: Internal Medicine: Result - Labs CBC & Chem 7: 11/23/17 05:11 11/23/17 05:11 Labs: Short CBC 11/23/17 Range/Units 05:11 WBC 4.8 (4.3-11.1) K/mcL Hgb 11.6 (11.5-15.4) g/dL Hct 35.9 (35.3-44.9) % Plt Count 216 (140-400) K/mcL Neutrophils # 2.9 (1.6-8.9) K/mcL BMP 11/23/17 05:11 Sodium 138 Potassium 4.2 D Chloride 109 H Carbon Dioxide 23 BUN 12 Creatinine 0.90 Glucose 87 Calcium 8.6 - ABG Interpretation ABG results: PT/INR, D-dimer PT 11.6 Seconds (9.4-12.1) 11/20/17 03:52 Consult Discharge Plan - Plan Referrals: Christiano Bull MD [Primary Care Provider] - <Kathleen Cheatham - Last Filed: 11/23/17 15:50> Hospitalist Progress Note - Encounter Date of Encounter: 11/23/17 Time of Encounter: 13:30 - Exam Vitals: Temp Pulse Resp BP Pulse Ox 98.0 F 78 16 119/78 93 11/23/17 12:10 11/23/17 12:10 11/23/17 12:10 11/23/17 12:10 11/23/17 12:10 Exam: Gen: NAD. Pt responding to commands HEENT: Normocephalic, atraumatic Cardiac: RRR, no murmur, normal S1/S2 Pulmonary: CTA b/l; no rales or rhonchi Abdomen: Normoactive bowel sounds, soft, NT/nondistended, no guarding; mildly tender right flank Extremities: no b/l LE edema, nontender calf, no cyanosis or clubbing Neuro: No focal deficits - Assessment and Plan (1) Kidney stone Current Visit: Yes Status: Acute (2) S/P ureteral stent placement Current Visit: Yes Status: Acute (3) DVT prophylaxis Current Visit: Yes Status: Acute (4) Bipolar disorder Current Visit: No Status: Chronic (5) Hypothyroidism Current Visit: Yes Status: Chronic (6) Encephalopathy Current Visit: Yes Status: Acute (7) Pericardial effusion Current Visit: Yes Status: Acute (8) UTI (urinary tract infection) Current Visit: Yes Status: Acute (9) Bacteremia Current Visit: Yes Status: Acute (10) Metabolic encephalopathy Current Visit: Yes Status: Acute - Time Spent with Patient Total time spent is greater than 50% in coordination of care (as documented) at patient's floor/unit and/or counseling patient: Internal Medicine: Result - Labs CBC & Chem 7: 11/23/17 05:11 11/23/17 05:11 Labs: Short CBC 11/23/17 Range/Units 05:11 WBC 4.8 (4.3-11.1) K/mcL Hgb 11.6 (11.5-15.4) g/dL Hct 35.9 (35.3-44.9) % Plt Count 216 (140-400) K/mcL Neutrophils # 2.9 (1.6-8.9) K/mcL BMP 11/23/17 05:11 Sodium 138 Potassium 4.2 D Chloride 109 H Carbon Dioxide 23 BUN 12 Creatinine 0.90 Glucose 87 Calcium 8.6 - ABG Interpretation ABG results: PT/INR, D-dimer PT 11.6 Seconds (9.4-12.1) 11/20/17 03:52 - Attending Attestation I examined this patient and my medical decision-making was reviewed with the Resident Physician Dr. uNnez. I agree with the documented findings, disposition and treatment plan as described except to the extent set forth below. Ms. Cowan is a 42 year old female with history of bipolar disorder, hypothyroidism cardiac arrhythmia, PCOS, pericardial effusion and recent right ureteral stent who presents to [facility] from [place] with complaint of altered mental status and fall. Pt does have UTI, Bacteremia with Proteus. Pt was on Zosyn. She is alert, awake and Oriented to self today. Chest: Diminished BS b/l, No crackles Heart: S1S2+ RRR No murmurs a/p 1. Sepsis 2. Bacteremia - Proteus 3. Acute UTI cont broad abx Zosyn repeat blood cx so far no growth 4 Acute toxic encephalopathy improving <Altagracia Nunez - Last Filed: 11/23/17 14:44> (4) UTI (urinary tract infection) Qualifiers: Urinary tract infection type: acute cystitis Hematuria presence: with hematuria Qualified Code(s): N30.01 - Acute cystitis with hematuria (5) Bipolar disorder Qualifiers: Active/Remission status: remission status unspecified Qualified Code(s): F31.9 - Bipolar disorder, unspecified (6) Hypothyroidism Qualifiers: Hypothyroidism type: acquired Qualified Code(s): E03.9 - Hypothyroidism, unspecified <Kathleen Cheatham - Last Filed: 11/23/17 15:50> (4) Bipolar disorder Qualifiers: Active/Remission status: remission status unspecified Qualified Code(s): F31.9 - Bipolar disorder, unspecified (5) Hypothyroidism Qualifiers: Hypothyroidism type: acquired Qualified Code(s): E03.9 - Hypothyroidism, unspecified (8) UTI (urinary tract infection) Qualifiers: Urinary tract infection type: acute cystitis Hematuria presence: with hematuria Qualified Code(s): N30.01 - Acute cystitis with hematuria
--- NOTE | 2017-11-23 15:54 | Infectious Disease Progress No ---
Date of Encounter: 11/23/17 Time of Encounter: 15:52 - Assessment and Plan (1) UTI (urinary tract infection) Current Visit: Yes Status: Acute Organism: Proteus mirabilis, resistant to cephalosporins, 4 quinolones, and intermediate to imipenem. Continue Zosyn 3.375 g IV every 8 hours for now. Duration of treatment depends on the clinical picture, but likely a total of 10 days. Can likely transition to oral Bactrim when ready for discharge to complete course of treatment. Monitor renal function and adjust antibiotics. Put patient in contact isolation since her Proteus is resistant to four classes of drugs. Qualifiers: Urinary tract infection type: acute cystitis Hematuria presence: with hematuria Qualified Code(s): N30.01 - Acute cystitis with hematuria (2) Bacteremia due to Gram-negative bacteria Current Visit: Yes Status: Acute Organism: Proteus. Likely secondary to UTI. Blood cultures drawn 11/20/17 are +1/1 sets for Proteus. Repeat blood culture drawn 11/21/17 are no growth to date. Continue Zosyn as stated above. Can likely transition to by mouth Bactrim and ready for discharge. Duration of treatment depends on the clinical picture, likely a total of 14 days from the first set of negative blood cultures. (3) Bacteremia due to Gram-positive bacteria Current Visit: Yes Status: Acute Also organism: Coag-negative staph. Likely a contaminant. No further antibiotics required at this time. (4) Metabolic encephalopathy Current Visit: Yes Status: Acute Secondary to bacteremia and UTI. Appears improved. Not sure what the patient's baseline is, but per nursing staff she is markedly improved as far as mental status goes. (5) S/P ureteral stent placement Current Visit: Yes Status: Acute (6) Ureteral calculi Current Visit: No Status: Acute - Subjective Interval history: Patient seen and examined. No acute events noted overnight. Sitter at bedside. Patient awake, watching television. Somewhat participative in exam today. Denies pain, but does not answer other ROS questions. Infect Dis PN-Objective Data - Labs CBC & Chem 7: 11/23/17 05:11 11/23/17 05:11 Labs: Laboratory Results - last 24 hr 11/22/17 11/22/17 11/22/17 07:34 11:30 16:59 WBC RBC Hgb Hct MCV MCH MCHC RDW Plt Count MPV Immature Gran % Seg Neutrophils % Lymphocytes % Monocytes % Eosinophils % Basophils % Neutrophils # Lymphocytes # Monocytes # Eosinophils # Basophils # Sodium Potassium Chloride Carbon Dioxide BUN Creatinine Est GFR ( Amer) Est GFR (Non-Af Amer) BUN/Creatinine Ratio Glucose POC Glucose 96 98 138 H Calculated Osmolality Calcium Magnesium Vancomycin Trough 11/22/17 11/23/17 11/23/17 22:59 05:11 05:11 WBC 4.8 RBC 3.56 L Hgb 11.6 Hct 35.9 MCV 100.8 H MCH 32.6 MCHC 32.3 RDW 13.7 Plt Count 216 MPV 10.1 Immature Gran % 0.6 Seg Neutrophils % 61.6 Lymphocytes % 20.8 Monocytes % 12.6 Eosinophils % 3.8 Basophils % 0.6 Neutrophils # 2.9 Lymphocytes # 1.0 Monocytes # 0.6 Eosinophils # 0.2 Basophils # 0.0 Sodium 138 Potassium 4.2 D Chloride 109 H Carbon Dioxide 23 BUN 12 Creatinine 0.90 Est GFR ( Amer) > 60 Est GFR (Non-Af Amer) > 60 BUN/Creatinine Ratio 13 Glucose 87 POC Glucose Calculated Osmolality 285 Calcium 8.6 Magnesium 2.0 Vancomycin Trough 26 H Cultures: Cultures 11/20/17 08:42 Urine Culture - Final Urine,Catheterized No growth. 11/21/17 09:28 Blood Culture - Preliminary Peripheral Venipuncture Culture is incubating and being continuously monitored for growth. Final report to follow. 11/21/17 09:25 Blood Culture - Preliminary Peripheral Venipuncture Culture is incubating and being continuously monitored for growth. Final report to follow. Serology 11/20/17 Range/Units 08:42 Urine Color Yellow (Yellow) Urine Clarity Hazy A (Clear) Urine pH 6.5 (5.0-8.0) pH Units Ur Specific [place] 1.009 L (1.010-1.025) Urine Protein 100 H (Neg-Trace) mg/dL Urine Glucose (UA) Normal (Normal) mg/dL Urine Ketones Negative (Negative) mg/dL Urine Blood Large H (Negative) Urine Nitrite Negative (Negative) Urine Bilirubin Negative (Negative) Urine Urobilinogen Normal (Normal) mg/dL Ur Leukocyte Esterase Large H (Negative) Urine Microscopic RBC TNTC H (0-3) per hpf Urine Microscopic WBC TNTC H (0-3) per hpf Ur Squamous Epith Cells Many H (None-Few) per lpf Urine Bacteria None Seen (None-Few) per hpf Hyaline Casts None Seen (None-Few) per lpf Ur Culture Indicated? NO. A (NO) Exam - Constitutional Vitals: Temp Pulse Resp BP Pulse Ox 98.0 F 78 16 119/78 93 11/23/17 12:10 11/23/17 12:10 11/23/17 12:10 11/23/17 12:10 11/23/17 12:10 General appearance: cooperative, no acute distress, obese - Head Head exam: Present: atraumatic, normal inspection, normocephalic - Eye Eye exam: Present: EOMI, normal appearance, PERRL Pupils: Present: normal accommodation - ENT ENT exam: Present: mucous membranes moist - Neck Neck exam: Present: normal inspection - Respiratory Respiratory exam: Present: CTAB. Absent: rales, respiratory distress, rhonchi, wheezes - Cardiovascular Cardiovascular exam: Present: RRR, +S1, +S2 - GI/Abdominal GI/Abdominal exam: Present: normal bowel sounds, soft. Absent: distended, tenderness - Extremities Exam Extremities exam: Present: normal inspection. Absent: joint swelling, pedal edema, tenderness - Neurological Exam Neurological exam: Present: alert, no focal deficits - Psychiatric Psychiatric exam: Present: normal affect, normal mood - Skin Skin exam: Present: dry, intact, normal color, warm Consult Discharge Plan - Plan Referrals: Christiano Bull MD [Primary Care Provider] - - Attending Attestation I examined this patient and my medical decision-making was reviewed with the Resident Physician. I agree with the documented findings, disposition and treatment plan as described except to the extent set forth below.
[2017-11-24] MEDS: Piperacillin/Tazobactam 3.375 GM in 0.9 % Sodium Chloride Mini Bag 100 ML IVPB SCH ×3 (02:41→17:06)
[2017-11-24 05:46] LABS: Basophils % 0.6 %; Eosinophils # 0.2 K/mcL (0.0-0.6); Eosinophils % 4.2 %; Hematocrit 33.3 % (35.3-44.9); Hemoglobin 11.1 g/dL (11.5-15.4); Immature Granulocytes % 0.6 % (0-4); Lymphocytes # 1.3 K/mcL (0.6-4.6); Lymphocytes % 24.9 %; Mean Corpuscular HGB Conc 33.3 g/dL (31.6-35.5); Mean Corpuscular Hemoglobin 32.6 pg (28.0-33.3); Mean Corpuscular Volume 97.9 fL (83.0-100.0); Mean Platelet Volume 9.7 fL (9.4-12.4); Monocytes # 0.6 K/mcL (0.0-1.3); Monocytes % 10.9 %; Neutrophils # 3.1 K/mcL (1.6-8.9); Platelet Count 233 K/mcL (140-400); Red Cell Distribution Width 13.9 % (11.5-14.5); Segmented Neutrophils % 58.8 %
[2017-11-24] MEDS: Levothyroxine 25 MCG TABLET PO SCH (05:58)
[2017-11-24] MEDS: *HR* Heparin 5,000 UNIT/ML VIAL SQ SCH ×2 (06:01→17:06)
[2017-11-24 06:05] LABS: BUN/Creatinine Ratio 15 (6-26); Blood Urea Nitrogen 14 mg/dL (6-20); Calcium 8.7 mg/dL (8.6-10.3); Carbon Dioxide 24 mEq/L (23-29); Chloride 111 mEq/L (98-107); Glucose 108 mg/dL (70-105); Osmolality,Calculated 297 (280-300); Potassium 3.9 mEq/L (3.5-5.1); Sodium 143 mEq/L (136-145); eGFR For Non-African Americans > 60 (> 60)
[2017-11-24] MEDS: 0.9 % Sodium Chloride 1,000 ML IVC SCH (08:18)
[2017-11-24] MEDS: Insulin LISPRO 300 UNITS/3 ML VIAL SQ SCH ×2 (08:18→20:46)
[2017-11-24] MEDS: Loratadine 10 MG TABLET PO SCH (08:19)
[2017-11-24] MEDS: Acetaminophen 325 MG TABLET PO PRN ×2 (08:30→20:43)
[2017-11-24] MEDS: OXYCODONE Oral CONC 10 MG/0.5 ML ORAL.SYG SL PRN ×2 (09:39→18:26)
--- NOTE | 2017-11-24 13:23 | Infectious Disease Progress No ---
Date of Encounter: 11/24/17 Time of Encounter: 13:20 - Assessment and Plan (1) UTI (urinary tract infection) Current Visit: Yes Status: Acute Organism: Proteus mirabilis, resistant to cephalosporins, fluoroquinolones, and intermediate to imipenem. Continue Zosyn 3.375 grams IV Q8H. (day 4) Duration of treatment depends on the clinical picture, but likely a total of 10 days. Can likely transition to oral Bactrim when ready for discharge to complete course of treatment. Monitor renal function and adjust antibiotics. Put patient in contact isolation since her Proteus is resistant to four classes of drugs. Qualifiers: Urinary tract infection type: acute cystitis Hematuria presence: with hematuria Qualified Code(s): N30.01 - Acute cystitis with hematuria (2) Bacteremia due to Gram-negative bacteria Current Visit: Yes Status: Acute Organism: Proteus. Likely secondary to UTI. Blood cultures drawn 11/20/17 are +1/1 sets for Proteus. Repeat blood culture drawn 11/21/17 are no growth to date. Continue Zosyn as stated above. Can likely transition to by mouth Bactrim and ready for discharge. Duration of treatment depends on the clinical picture, likely a total of 14 days from the first set of negative blood cultures. Treat through 12/04/17. (3) Bacteremia due to Gram-positive bacteria Current Visit: Yes Status: Acute Also organism: Coag-negative staph. Likely a contaminant. No further antibiotics required at this time. (4) Metabolic encephalopathy Current Visit: Yes Status: Acute Secondary to bacteremia and UTI. Appears improved. Not sure what the patient's baseline is, but per nursing staff she is markedly improved as far as mental status goes. (5) S/P ureteral stent placement Current Visit: Yes Status: Acute (6) Ureteral calculi Current Visit: No Status: Acute - Subjective Interval history: Patient seen and examined. No acute events noted overnight. Sitter at bedside. Patient awake, watching television. Somewhat participative in exam today. Nods head "yes" to abdominal pain, but does not answer other ROS questions. Infect Dis PN-Objective Data - Labs CBC & Chem 7: 11/24/17 05:31 11/24/17 05:31 Labs: Laboratory Results - last 24 hr 11/22/17 11/24/17 11/24/17 19:40 05:31 05:31 WBC 5.2 RBC 3.40 L Hgb 11.1 L Hct 33.3 L MCV 97.9 MCH 32.6 MCHC 33.3 RDW 13.9 Plt Count 233 MPV 9.7 Immature Gran % 0.6 Seg Neutrophils % 58.8 Lymphocytes % 24.9 Monocytes % 10.9 Eosinophils % 4.2 Basophils % 0.6 Neutrophils # 3.1 Lymphocytes # 1.3 Monocytes # 0.6 Eosinophils # 0.2 Basophils # 0.0 Sodium 143 Potassium 3.9 Chloride 111 H Carbon Dioxide 24 BUN 14 Creatinine 0.94 Est GFR ( Amer) > 60 Est GFR (Non-Af Amer) > 60 BUN/Creatinine Ratio 15 Glucose 108 H POC Glucose 122 H Calculated Osmolality 297 Calcium 8.7 Cultures: Cultures 11/20/17 08:42 Urine Culture - Final Urine,Catheterized No growth. 11/21/17 09:28 Blood Culture - Preliminary Peripheral Venipuncture Culture is incubating and being continuously monitored for growth. Final report to follow. 11/21/17 09:25 Blood Culture - Preliminary Peripheral Venipuncture Culture is incubating and being continuously monitored for growth. Final report to follow. Serology 11/20/17 Range/Units 08:42 Urine Color Yellow (Yellow) Urine Clarity Hazy A (Clear) Urine pH 6.5 (5.0-8.0) pH Units Ur Specific [place] 1.009 L (1.010-1.025) Urine Protein 100 H (Neg-Trace) mg/dL Urine Glucose (UA) Normal (Normal) mg/dL Urine Ketones Negative (Negative) mg/dL Urine Blood Large H (Negative) Urine Nitrite Negative (Negative) Urine Bilirubin Negative (Negative) Urine Urobilinogen Normal (Normal) mg/dL Ur Leukocyte Esterase Large H (Negative) Urine Microscopic RBC TNTC H (0-3) per hpf Urine Microscopic WBC TNTC H (0-3) per hpf Ur Squamous Epith Cells Many H (None-Few) per lpf Urine Bacteria None Seen (None-Few) per hpf Hyaline Casts None Seen (None-Few) per lpf Ur Culture Indicated? NO. A (NO) Exam - Constitutional Vitals: Temp Pulse Resp BP Pulse Ox 97.8 F 73 16 120/74 94 11/24/17 11:04 11/24/17 11:04 11/24/17 11:04 11/24/17 11:04 11/24/17 11:04 General appearance: cooperative, no acute distress, obese - Head Head exam: Present: atraumatic, normal inspection, normocephalic - Eye Eye exam: Present: EOMI, normal appearance, PERRL Pupils: Present: normal accommodation - ENT ENT exam: Present: mucous membranes moist - Neck Neck exam: Present: normal inspection - Respiratory Respiratory exam: Present: CTAB. Absent: rales, respiratory distress, rhonchi, wheezes - Cardiovascular Cardiovascular exam: Present: RRR, +S1, +S2 - GI/Abdominal GI/Abdominal exam: Present: distended (obese), normal bowel sounds, soft. Absent: tenderness - Extremities Exam Extremities exam: Present: normal inspection. Absent: joint swelling, pedal edema, tenderness - Neurological Exam Neurological exam: Present: alert, no focal deficits Additional comments: Does not answer questions. - Psychiatric Psychiatric exam: Present: normal affect, normal mood - Skin Skin exam: Present: dry, intact, normal color, warm Consult Discharge Plan - Plan Referrals: Christiano Bull MD [Primary Care Provider] - - Attending Attestation I examined this patient and my medical decision-making was reviewed with the Resident Physician. I agree with the documented findings, disposition and bernie atment plan as described except to the extent set forth below.
--- NOTE | 2017-11-24 14:37 | Internal Med Progress Note ---
Hospitalist Progress Note - Encounter Date of Encounter: 11/24/17 Time of Encounter: 11:00 - Subjective Interval History: Ms. Cowan is a 42 year old female with history of bipolar disorder, hypothyroidism cardiac arrhythmia, PCOS, pericardial effusion and recent Right ureteral stent who presents to [facility] from [place] with complaint of altered mental status and fall. Pt does have UTI, Bacteremia with Proteus. Pt was on Zosyn. She is alert, awake and Oriented to self today. No events over night. No fever - Exam Vitals: Temp Pulse Resp BP Pulse Ox 97.8 F 73 16 120/74 94 11/24/17 11:04 11/24/17 11:04 11/24/17 11:04 11/24/17 11:04 11/24/17 11:04 Exam: Gen: NAD. Pt responding to commands HEENT: Normocephalic, atraumatic Cardiac: RRR, no murmur, normal S1/S2 Pulmonary: CTA b/l; no rales or rhonchi Abdomen: Normoactive bowel sounds, soft, NT/nondistended, no guarding; mildly tender right flank Extremities: no b/l LE edema, nontender calf, no cyanosis or clubbing Neuro: No focal deficits - Assessment and Plan (1) UTI (urinary tract infection) Current Visit: Yes Status: Acute Assessment and Plan: Urine cx - Proteus Cont abx Zosyn for now # 5/ (2) Bacteremia Current Visit: Yes Status: Acute Assessment and Plan: Due to UTI repeat blood cx no growth cont Zosyn for now will switch to PO Bactrim when pt ready to d/c (3) Encephalopathy Current Visit: Yes Status: Acute Assessment and Plan: Toxic encephalopathy with UTI / Sepsis improving Physical deconditioning PT / OT recommend ECF placement. Will talk to caregivers (4) Kidney stone Current Visit: Yes Status: Acute Assessment and Plan: Right renal calculi - 1.4 cm ureteropelvic junction stone on the right side s/p Rt ureter stent placement on 11/15/[address] Myrick talked to Urology Dr. Funes, who do not recommend an invasive procedures now. Need to f/u with them as an out pt (5) S/P ureteral stent placement Current Visit: Yes Status: Acute Assessment and Plan: As above (6) DVT prophylaxis Current Visit: Yes Status: Acute Assessment and Plan: SQ Heparin (7) Bipolar disorder Current Visit: No Status: Chronic Assessment and Plan: Continue home psych meds (8) Hypothyroidism Current Visit: Yes Status: Chronic Assessment and Plan: TSH within normal limits at [place] Continue Levothyroxine (9) Pericardial effusion Current Visit: Yes Status: Acute Assessment and Plan: Demonstrated on CT exam Patient has apparently been seen and evaluated by cardiology as outpatient Monitor for symptoms, consider CT Surgery consult if needed (10) Metabolic encephalopathy Current Visit: Yes Status: Acute - Time Spent with Patient Total time spent is greater than 50% in coordination of care (as documented) at patient's floor/unit and/or counseling patient: Internal Medicine: Result - Labs CBC & Chem 7: 11/24/17 05:31 11/24/17 05:31 Labs: Short CBC 11/24/17 Range/Units 05:31 WBC 5.2 (4.3-11.1) K/mcL Hgb 11.1 L (11.5-15.4) g/dL Hct 33.3 L (35.3-44.9) % Plt Count 233 (140-400) K/mcL Neutrophils # 3.1 (1.6-8.9) K/mcL BMP 11/24/17 05:31 Sodium 143 Potassium 3.9 Chloride 111 H Carbon Dioxide 24 BUN 14 Creatinine 0.94 Glucose 108 H Calcium 8.7 - ABG Interpretation ABG results: PT/INR, D-dimer PT 11.6 Seconds (9.4-12.1) 11/20/17 03:52 Consult Discharge Plan - Plan Referrals: Christiano Bull MD [Primary Care Provider] - (1) UTI (urinary tract infection) Qualifiers: Urinary tract infection type: acute cystitis Hematuria presence: with hematuria Qualified Code(s): N30.01 - Acute cystitis with hematuria (7) Bipolar disorder Qualifiers: Active/Remission status: remission status unspecified Qualified Code(s): F31.9 - Bipolar disorder, unspecified (8) Hypothyroidism Qualifiers: Hypothyroidism type: acquired Qualified Code(s): E03.9 - Hypothyroidism, unspecified
[2017-11-25] MEDS: OXYCODONE Oral CONC 10 MG/0.5 ML ORAL.SYG SL PRN ×4 (00:55→19:41)
[2017-11-25] MEDS: Piperacillin/Tazobactam 3.375 GM in 0.9 % Sodium Chloride Mini Bag 100 ML IVPB SCH ×3 (01:36→18:04)
[2017-11-25] MEDS ORDERED: Levothyroxine 25 MCG TABLET PO ONE (09:32)
[2017-11-25] MEDS ORDERED: *HR* Heparin 5,000 UNIT/ML VIAL IVP ONE (09:32)
[2017-11-25] MEDS ORDERED: Piperacillin/Tazobactam 3.375 GM VIAL IVPB ONE (09:32)
[2017-11-25] MEDS ORDERED: Acetaminophen 325 MG TABLET PO ONE (09:32)
[2017-11-25] MEDS ORDERED: 0.9 % Sodium Chloride (Mini-Bag +) 100 ML IVBAG IVC ONE (09:32)
[2017-11-25] MEDS ORDERED: Loratadine 10 MG TABLET PO ONE (09:32)
[2017-11-25] MEDS: Levothyroxine 25 MCG TABLET PO SCH (11:53)
[2017-11-25] MEDS: *HR* Heparin 5,000 UNIT/ML VIAL SQ SCH ×2 (11:53→18:04)
[2017-11-25] MEDS: Loratadine 10 MG TABLET PO SCH (11:54)
--- NOTE | 2017-11-25 13:09 | Urology Progress Note ---
<Sarahi Simon - Last Filed: 11/25/17 13:07> Date of Encounter: 11/25/17 Time of Encounter: 13:00 - Assessment and Plan (1) Ureteral calculi Current Visit: No Status: Acute Assessment and plan: Patient is a 42-year-old female who is 9 days status post right retrograde pyelogram and right ureteral stent placement. The patient was readmitted for pain control and behavioral issues on November 20, 2017. Patient seems to be improved at this time. The patient's caregiver is aware that this is a staged procedure as she has a 14 mm UPJ stone and severe hydronephrosis. [facility] will reach out to caregiver in order to arrange a follow-up appointment as well as definitive stone extraction procedure. Progress Note Subjective: no new complaints Narrative: POD#9. Patient seen and examined lying in bed in no apparent distress with TYPESETTING MACHINE OPERATOR/TENDER at bedside. Patient is nonverbal and minimally communicative. TYPESETTING MACHINE OPERATOR/TENDER reports patient is voiding without difficulty, and no gross hematuria has been observed. Patient is voiding clear urine with sufficient output. Pain appears to be well controlled at present. Patient is tolerating normal diet. Vital signs are stable and afebrile. Objective Initial Vital Signs Temp Pulse Resp BP Pulse Ox 98.3 F 98 15 135/80 99 11/20/17 02:03 11/20/17 02:03 11/20/17 02:03 11/20/17 02:03 11/20/17 02:03 - General physical appearance Present: well developed, no distress, no pain - Respiratory Present: normal expansion, normal respiratory effort - Integumentary Present: no rash, no abnormal pigmentation - Musculoskeletal Present: normal posture - Labs 11/24/17 05:31 11/24/17 05:31 Consult Discharge Plan - Plan Referrals: Christiano Bull MD [Primary Care Provider] - <Mehul Funes - Last Filed: 11/25/17 13:51> - Assessment and Plan (1) S/P ureteral stent placement Current Visit: Yes Status: Acute Assessment and plan: Patient was seen and examined independently. agree with plan as written by Sarahi Simon Objective Initial Vital Signs Temp Pulse Resp BP Pulse Ox 98.3 F 98 15 135/80 99 11/20/17 02:03 11/20/17 02:03 11/20/17 02:03 11/20/17 02:03 11/20/17 02:03 - Labs 11/24/17 05:31 11/24/17 05:31
--- NOTE | 2017-11-25 16:15 | Internal Med Progress Note ---
<Altagracia Nunez - Last Filed: 11/25/17 16:11> Hospitalist Progress Note - Encounter Date of Encounter: 11/25/17 Time of Encounter: 09:25 - Subjective Interval History: Sheryl Cowan is a 42 year old female with developmental delay and history multiple psychiatric disorders who was recently admitted on 11/17 due to UTI and nephrolithiasis and was found to have 1.4cm stone at the [facility] and was dischared on 11/17 s/p stent placement. She presented to the [place] ED on 11/20 with her mechanical inspector due to no improvement, loss of appetite, irritability and unclear complaints of pain. She was transferred here for further management. She had a urine culture positive for Proteus, and was found to be bacteremic with proteus positive blood culture. Patient appears to be back to her baseline and is ambulating to chair and bathroom with some assistance. She responds to commands and is engaging in activities. Still admits to lower abdominal pain, but otherwise is significantly improved from presentation. - Exam Vitals: Temp Pulse Resp BP Pulse Ox 97.5 F L 94 16 116/75 98 11/25/17 15:26 11/25/17 15:26 11/25/17 15:26 11/25/17 15:26 11/25/17 15:26 Exam: Gen: NAD. Sitting comfortably in chair. HEENT: Normocephalic, atraumatic Cardiac: RRR, no murmur, normal S1/S2 Pulmonary: CTA b/l; no rales or rhonchi Abdomen: Normoactive bowel sounds, soft, NT/nondistended, Extremities: no b/l LE edema, nontender calf, no cyanosis or clubbing Neuro: No focal deficits Psych: MRDD, Responding to commands today, much improved from presentation - Assessment and Plan (1) Bacteremia Current Visit: Yes Status: Acute Assessment and Plan: Secondary to UTI w/ nephrolithisasis Urine culture 11/15- no significant growth Blood cultures 11/19 - prelim gram positive for staph species and proteus species multidrug resistant, sensitive to Ertapenum, Gentamicin, Meropenum, Pip/Tazo, Tobramycin, and Bactrim Urine culture 11/19- multidrug resistant proteus mirabilis Blood cultures 11/21 - NGTD [place] Zosyn (day 6), will transition to Bactrim tomorrow prior to discharge per ID recommendations (2) Encephalopathy Current Visit: Yes Status: Resolved Assessment and Plan: Resolved. Likely secondary to bactrermia. Patient appears to be back to baseline, responds to commands Tolerating up to chair and ambulating to bathroom (3) Kidney stone Current Visit: Yes Status: Acute Assessment and Plan: S/p ureteral stent placement on 11/16 for right 1.4cm [facility] stone with severe hydronephrosis CT A/P from [place] 11/19 - demonstrated a right renal calculi in the mid pole calyx with an additional adrenal mass which was partially calcified and large pericardial effusion which was stable from previous. Urology following - Outpatient follow up for staged procedure stone removal Continue Oxy 10 PRN for pain (4) UTI (urinary tract infection) Current Visit: Yes Status: Acute Assessment and Plan: Urine culture positive for proteus Continue Zozyn day 6, will transition to bactrim prior to discharge (5) Bipolar disorder Current Visit: No Status: Chronic Assessment and Plan: Continue home medications (6) Hypothyroidism Current Visit: Yes Status: Chronic Assessment and Plan: Continue home medications (7) Pericardial effusion Current Visit: Yes Status: Acute Assessment and Plan: Demonstated on CT PCP monitoring, stable from previous DVT Prophylaxis: SubQ heparin - Time Spent with Patient Total time spent is greater than 50% in coordination of care (as documented) at patient's floor/unit and/or counseling patient: Internal Medicine: Result - Labs CBC & Chem 7: 11/24/17 05:31 11/24/17 05:31 - ABG Interpretation ABG results: PT/INR, D-dimer PT 11.6 Seconds (9.4-12.1) 11/20/17 03:52 Consult Discharge Plan - Plan Referrals: Christiano Bull MD [Primary Care Provider] - <Kathleen Cheatham - Last Filed: 11/25/17 18:04> Hospitalist Progress Note - Exam Vitals: Temp Pulse Resp BP Pulse Ox 97.5 F L 94 16 116/75 98 11/25/17 15:26 11/25/17 15:26 11/25/17 15:26 11/25/17 15:26 11/25/17 15:26 - Assessment and Plan (1) UTI (urinary tract infection) Current Visit: Yes Status: Acute (2) Bacteremia Current Visit: Yes Status: Acute (3) Encephalopathy Current Visit: Yes Status: Resolved (4) Kidney stone Current Visit: Yes Status: Acute (5) S/P ureteral stent placement Current Visit: Yes Status: Acute (6) DVT prophylaxis Current Visit: Yes Status: Acute (7) Bipolar disorder Current Visit: No Status: Chronic (8) Hypothyroidism Current Visit: Yes Status: Chronic (9) Pericardial effusion Current Visit: Yes Status: Acute (10) Metabolic encephalopathy Current Visit: Yes Status: Acute - Time Spent with Patient Total time spent is greater than 50% in coordination of care (as documented) at patient's floor/unit and/or counseling patient: Internal Medicine: Result - Labs CBC & Chem 7: 11/24/17 05:31 11/24/17 05:31 - ABG Interpretation ABG results: PT/INR, D-dimer PT 11.6 Seconds (9.4-12.1) 11/20/17 03:52 - Attending Attestation I examined this patient and my medical decision-making was reviewed with the Res ident Physician Dr. Nunez. I agree with the documented findings, disposition and treatment plan as described except to the extent set forth below. Ms. Cowan is a 42 year old female with history of bipolar disorder, hypothyroidism cardiac arrhythmia, PCOS, pericardial effusion and recent right ureteral stent who presents to [facility] from [place] with complaint of alte red mental status and fall. Pt does have UTI, Bacteremia with Proteus. Pt was on Zosyn. She is alert, awake and Oriented to person and self today. Chest: Diminished BS b/l, No crackles Heart: S1S2+ RRR No murmurs a/p 1. Sepsis 2. Bacteremia - Proteus 3. Acute UTI cont broad abx Zosyn repeat blood cx so far no growth 4 Acute toxic encephalopathy improving <Altagracia Nunez Carolann - Last Filed: 11/25/17 16:11> (4) UTI (urinary tract infection) Qualifiers: Urinary tract infection type: acute cystitis Hematuria presence: with hematuria Qualified Code(s): N30.01 - Acute cystitis with hematuria (5) Bipolar disorder Qualifiers: Active/Remission status: remission status unspecified Qualified Code(s): F31.9 - Bipolar disorder, unspecified (6) Hypothyroidism Qualifiers: Hypothyroidism type: acquired Qualified Code(s): E03.9 - Hypothyroidism, unspecified <Thallapaneni,Rambabu - Last Filed: 11/25/17 18:04> (1) UTI (urinary tract infection) Qualifiers: Urinary tract infection type: acute cystitis Hematuria presence: with hematuria Qualified Code(s): N30.01 - Acute cystitis with hematuria (7) Bipolar disorder Qualifiers: Active/Remission status: remission status unspecified Qualified Code(s): F31.9 - Bipolar disorder, unspecified (8) Hypothyroidism Qualifiers: Hypothyroidism type: acquired Qualified Code(s): E03.9 - Hypothyroidism, unspecified
[2017-11-26] MEDS: Piperacillin/Tazobactam 3.375 GM in 0.9 % Sodium Chloride Mini Bag 100 ML IVPB SCH ×2 (01:51→10:59)
[2017-11-26] MEDS: OXYCODONE Oral CONC 10 MG/0.5 ML ORAL.SYG SL PRN ×4 (03:57→20:56)
[2017-11-26] MEDS: Levothyroxine 25 MCG TABLET PO SCH (06:45)
[2017-11-26] MEDS: *HR* Heparin 5,000 UNIT/ML VIAL SQ SCH ×2 (06:46→17:19)
[2017-11-26] MEDS: Loratadine 10 MG TABLET PO SCH (08:45)
[2017-11-26] MEDS: Acetaminophen 325 MG TABLET PO PRN ×2 (08:49→19:43)
--- NOTE | 2017-11-26 14:14 | Internal Med Progress Note ---
<Altagracia Nunez - Last Filed: 11/26/17 16:00> Hospitalist Progress Note - Encounter Date of Encounter: 11/26/17 Time of Encounter: 09:53 - Subjective Interval History: Sheryl Cowan is a 42 year old female with developmental delay and history multiple psychiatric disorders who was recently admitted on 11/17 due to UTI and nephrolithiasis and was found to have 1.4cm stone at the [facility] and was dischared on 11/17 s/p stent placement. She presented to the [place] ED on 11/20 with her assistant project manager due to no improvement, loss of appetite, irritability and unclear complaints of pain. She was transferred here for further management. She had a urine culture positive for Proteus, and was found to be bacteremic with proteus positive blood culture. Enterprise Cloud Architect at bedside this morning voicing concerns about patient's fall risk and thinks she would benefit form PT/OT in a short-term SNF. Patient is ambulating to chair and bathroom with some assistance, but according to assistant project manager is not quite at baseline. Patient responds to commands and is engaging in activities. Still admits to lower abdominal pain, but otherwise is significantly improved from presentation. - Exam Vitals: Temp Pulse Resp BP Pulse Ox 98.4 F 67 14 110/68 91 11/26/17 10:53 11/26/17 10:53 11/26/17 10:53 11/26/17 10:53 11/26/17 10:53 Exam: Gen: NAD. Lying comfortably in bed. HEENT: Normocephalic, atraumatic Cardiac: RRR, no murmur, normal S1/S2 Pulmonary: CTA b/l; no rales or rhonchi Abdomen: Normoactive bowel sounds, soft, NT/nondistended, Extremities: no b/l LE edema, nontender calf, no cyanosis or clubbing Neuro: No focal deficits Psych: MRDD, Responds to commands, much improved from presentation - Assessment and Plan (1) Bacteremia Current Visit: Yes Status: Acute Assessment and Plan: Secondary to UTI w/ nephrolithisasis Urine culture 11/15- no significant growth Blood cultures 11/19 - positive for staph hominis and proteus species multidrug resistant, sensitive to Ertapenum, Gentamicin, Meropenum, Pip/Tazo, Tobramycin, and Bactrim Urine culture 11/19- multidrug resistant proteus mirabilis Blood cultures 11/21 - No growth Transitioned to oral Bactrim Discontinued Zosyn day 7 Case Management working on SNF placement for PT/OT (2) Encephalopathy Current Visit: Yes Status: Resolved Assessment and Plan: Resolved. Likely secondary to bactrermia. Patient appears to be progressing back to baseline, responds to commands Tolerating up to chair and ambulating to bathroom (3) Kidney stone Current Visit: Yes Status: Acute Assessment and Plan: S/p ureteral stent placement on 11/16 for right 1.4cm UPJ stone with severe hydronephrosis CT A/P from [place] 11/19 - demonstrated a right renal calculi in the mid pole calyx with an additional adrenal mass which was partially calcified and large pericardial effusion which was stable from previous. Urology to follow up as an outpatient for staged procedure stone removal Continue Oxy 10 PRN for pain (4) UTI (urinary tract infection) Current Visit: Yes Status: Acute Assessment and Plan: Urine culture positive for Proteus Transition to oral Bactrim today Discontinued Zosyn day 7 (5) Bipolar disorder Current Visit: No Status: Chronic Assessment and Plan: Continue home medications (6) Hypothyroidism Current Visit: Yes Status: Chronic Assessment and Plan: Continue home medications (7) Pericardial effusion Current Visit: Yes Status: Acute Assessment and Plan: Demonstated on CT PCP monitoring, stable from previous - Time Spent with Patient Total time spent is greater than 50% in coordination of care (as documented) at patient's floor/unit and/or counseling patient: Internal Medicine: Result - Labs CBC & Chem 7: 11/24/17 05:31 11/24/17 05:31 - ABG Interpretation ABG results: PT/INR, D-dimer PT 11.6 Seconds (9.4-12.1) 11/20/17 03:52 Consult Discharge Plan - Plan Referrals: Christiano Bull MD [Primary Care Provider] - <Kathleen Cheatham - Last Filed: 11/26/17 17:42> Hospitalist Progress Note - Exam Vitals: Temp Pulse Resp BP Pulse Ox 97.9 F 80 14 137/80 91 11/26/17 16:04 11/26/17 16:04 11/26/17 16:04 11/26/17 16:04 11/26/17 16:04 - Assessment and Plan (1) UTI (urinary tract infection) Current Visit: Yes Status: Acute (2) Bacteremia Current Visit: Yes Status: Acute (3) Encephalopathy Current Visit: Yes Status: Resolved (4) Kidney stone Current Visit: Yes Status: Acute (5) S/P ureteral stent placement Current Visit: Yes Status: Acute (6) DVT prophylaxis Current Visit: Yes Status: Acute (7) Bipolar disorder Current Visit: No Status: Chronic (8) Hypothyroidism Current Visit: Yes Status: Chronic (9) Pericardial effusion Current Visit: Yes Status: Acute (10) Metabolic encephalopathy Current Visit: Yes Status: Acute - Time Spent with Patient Total time spent is greater than 50% in coordination of care (as documented) at patient's floor/unit and/or counseling patient: Internal Medicine: Result - Labs CBC & Chem 7: 11/24/17 05:31 11/24/17 05:31 - ABG Interpretation ABG results: PT/INR, D-dimer PT 11.6 Seconds (9.4-12.1) 11/20/17 03:52 - Attending Attestation I examined this patient and my medical decision-making was reviewed with the Resident Physician Dr. Nunez. I agree with the documented findings, disposition and treatment plan as described except to the extent set forth below. Ms. Cowan is a 42 year old female with history of bipolar disorder, hypothyroidism cardiac arrhythmia, PCOS, pericardial effusion and recent right ureteral stent who presents to [facility] from [place] with complaint of altered mental status and fall. Pt does have UTI, Bacteremia with Proteus. Pt was on Zosyn. She is alert, awake and Oriented to person and self today. Chest: Diminished BS b/l, No crackles Heart: S1S2+ RRR No murmurs a/p 1. Sepsis 2. Bacteremia - Proteus 3. Acute UTI switched to PO Abx Bactrim repeat blood cx so far no growth 4 Acute toxic encephalopathy improving 5. Bipolar / chronic psych problems Haldol IM will give haldol PRN for tremors <Altagracia Nunez - Last Filed: 11/26/17 16:00> (4) UTI (urinary tract infection) Qualifiers: Urinary tract infection type: acute cystitis Hematuria presence: with hematuria Qualified Code(s): N30.01 - Acute cystitis with hematuria (5) Bipolar disorder Qualifiers: Active/Remission status: remission status unspecified Qualified Code(s): F31.9 - Bipolar disorder, unspecified (6) Hypothyroidism Qualifiers: Hypothyroidism type: acquired Qualified Code(s): E03.9 - Hypothyroidism, unspecified <ThallaLela hawkinsbu - Last Filed: 11/26/17 17:42> (1) UTI (urinary tract infection) Qualifiers: Urinary tract infection type: acute cystitis Hematuria presence: with hemat uria Qualified Code(s): N30.01 - Acute cystitis with hematuria (7) Bipolar disorder Qualifiers: Active/Remission status: remission status unspecified Qualified Code(s): F31.9 - Bipolar disorder, unspecified (8) Hypothyroidism Qualifiers: Hypothyroidism type: acquired Qualified Code(s): E03.9 - Hypothyroidism, unspecified
[2017-11-26] MEDS: Nystatin Cream 15 GM TUBE TP SCH ×2 (15:25→21:35)
[2017-11-26 17:49] LABS: Basophils % 0.3 %; Eosinophils # 0.1 K/mcL (0.0-0.6); Eosinophils % 1.6 %; Hematocrit 37.4 % (35.3-44.9); Hemoglobin 12.1 g/dL (11.5-15.4); Immature Granulocytes % 0.8 % (0-4); Immature Platelets 1.9 % (1.1-6.1); Lymphocytes # 1.3 K/mcL (0.6-4.6); Mean Corpuscular HGB Conc 32.4 g/dL (31.6-35.5); Mean Corpuscular Hemoglobin 32.1 pg (28.0-33.3); Mean Corpuscular Volume 99.2 fL (83.0-100.0); Mean Platelet Volume 9.3 fL (9.4-12.4); Monocytes # 0.6 K/mcL (0.0-1.3); Monocytes % 6.3 %; Neutrophils # 6.7 K/mcL (1.6-8.9); Platelet Count 313 K/mcL (140-400); Red Blood Count 3.77 M/mcL (3.82-4.97); Red Cell Distribution Width 13.7 % (11.5-14.5)
[2017-11-26 18:07] LABS: BUN/Creatinine Ratio 16 (6-26); Blood Urea Nitrogen 17 mg/dL (6-20); Calcium 9.2 mg/dL (8.6-10.3); Carbon Dioxide 26 mEq/L (23-29); Chloride 106 mEq/L (98-107); Glucose 112 mg/dL (70-105); Osmolality,Calculated 288 (280-300); Potassium 3.7 mEq/L (3.5-5.1); Sodium 138 mEq/L (136-145); eGFR For Non-African Americans 56 (> 60)
[2017-11-26] MEDS: Sulfamethoxazole/Trimeth DS 1 EACH TABLET PO SCH (20:55)
[2017-11-27] MEDS: OXYCODONE Oral CONC 10 MG/0.5 ML ORAL.SYG SL PRN ×5 (02:34→20:24)
[2017-11-27] MEDS: *HR* Heparin 5,000 UNIT/ML VIAL SQ SCH ×2 (06:11→18:15)
[2017-11-27] MEDS: Levothyroxine 25 MCG TABLET PO SCH (06:42)
[2017-11-27] MEDS: Sulfamethoxazole/Trimeth DS 1 EACH TABLET PO SCH ×2 (09:45→20:24)
[2017-11-27] MEDS: Loratadine 10 MG TABLET PO SCH (09:45)
[2017-11-27] MEDS: Nystatin Cream 15 GM TUBE TP SCH ×2 (09:45→20:45)
--- NOTE | 2017-11-27 14:41 | Internal Med Progress Note ---
Hospitalist Progress Note - Encounter Date of Encounter: 11/27/17 Time of Encounter: 14:00 - Subjective Interval History: Ms. Cowan is a 42 year old female with history of bipolar disorder, hypothyroidism cardiac arrhythmia, PCOS, pericardial effusion and recent Right ureteral stent who presents to [facility] from [place] with complaint of altered mental status and fall. Pt does have UTI, Bacteremia with Proteus. Pt was placed on Zosyn later switched to PO Bactrim y/d. She is alert, awake and Oriented to self today. No events over night. No fever. However pt is still c/o flank pain. - Exam Vitals: Temp Pulse Resp BP Pulse Ox 97.7 F 98 16 127/71 97 11/27/17 10:36 11/27/17 10:36 11/27/17 10:36 11/27/17 10:36 11/27/17 10:36 Exam: Gen: NAD. Lying comfortably in bed. HEENT: Normocephalic, atraumatic Cardiac: RRR, no murmur, normal S1/S2 Pulmonary: CTA b/l; no rales or rhonchi Abdomen: Normoactive bowel sounds, soft, NT/non distended, CVA tenderness + Extremities: no b/l LE edema, nontender calf, no cyanosis or clubbing Neuro: No focal deficits Psych: MRDD, Responds to commands, much improved from presentation - Assessment and Plan (1) UTI (urinary tract infection) Current Visit: Yes Status: Acute Assessment and Plan: Urine cx - Proteus Finished 7 days Zosyn Switched abx to Bactrim # 1/ (2) Bacteremia Current Visit: Yes Status: Acute Assessment and Plan: Due to UTI repeat blood cx no growth cont Bactrim (3) Encephalopathy Current Visit: Yes Status: Resolved Assessment and Plan: Toxic encephalopathy with UTI / Sepsis improving Physical deconditioning PT / OT recommend ECF placement. Will talk to caregivers (4) Kidney stone Current Visit: Yes Status: Acute Assessment and Plan: Right renal calculi - 1.4 cm ureteropelvic junction stone on the right side s/p Rt ureter stent placement on 11/15/[address] Myrick talked to Urology Dr. Funes, who do not recommend an invasive procedures now. Need to f/u with them as an out pt However since pt still c/o flank pain ordered stat CT of abd / pelvis today (5) S/P ureteral stent placement Current Visit: Yes Status: Acute Assessment and Plan: As above (6) DVT prophylaxis Current Visit: Yes Status: Acute Assessment and Plan: SQ Heparin (7) Bipolar disorder Current Visit: No Status: Chronic Assessment and Plan: Continue home psych meds (8) Hypothyroidism Current Visit: Yes Status: Chronic Assessment and Plan: TSH within normal limits at [place] Continue Levothyroxine (9) Pericardial effusion Current Visit: Yes Status: Acute Assessment and Plan: Demonstrated on CT exam Patient has apparently been seen and evaluated by cardiology as outpatient Monitor for symptoms, consider CT Surgery consult if needed - Time Spent with Patient Total time spent is greater than 50% in coordination of care (as documented) at patient's floor/unit and/or counseling patient: Internal Medicine: Result - Labs CBC & Chem 7: 11/26/17 17:36 11/26/17 17:36 Labs: Short CBC 11/26/17 Range/Units 17:36 WBC 8.8 D (4.3-11.1) K/mcL Hgb 12.1 (11.5-15.4) g/dL Hct 37.4 (35.3-44.9) % Plt Count 313 (140-400) K/mcL Neutrophils # 6.7 (1.6-8.9) K/mcL BMP 11/26/17 17:36 Sodium 138 Potassium 3.7 Chloride 106 Carbon Dioxide 26 BUN 17 Creatinine 1.08 Glucose 112 H Calcium 9.2 - ABG Interpretation ABG results: PT/INR, D-dimer PT 11.6 Seconds (9.4-12.1) 11/20/17 03:52 Consult Discharge Plan - Plan Referrals: Christiano Bull MD [Primary Care Provider] - (1) UTI (urinary tract infection) Qualifiers: Urinary tract infection type: acute cystitis Hematuria presence: with hematuria Qualified Code(s): N30.01 - Acute cystitis with hematuria (7) Bipolar disorder Qualifiers: Active/Remission status: remission status unspecified Qualified Code(s): F31.9 - Bipolar disorder, unspecified (8) Hypothyroidism Qualifiers: Hypothyroidism type: acquired Qualified Code(s): E03.9 - Hypothyroidism, unspecified
[2017-11-28] MEDS: OXYCODONE Oral CONC 10 MG/0.5 ML ORAL.SYG SL PRN ×5 (01:42→23:33)
[2017-11-28] MEDS: Levothyroxine 25 MCG TABLET PO SCH (06:36)
[2017-11-28] MEDS: *HR* Heparin 5,000 UNIT/ML VIAL SQ SCH ×2 (06:36→16:27)
[2017-11-28] MEDS: Loratadine 10 MG TABLET PO SCH (10:44)
[2017-11-28] MEDS: Nystatin Cream 15 GM TUBE TP SCH (10:44)
[2017-11-28] MEDS: Sulfamethoxazole/Trimeth DS 1 EACH TABLET PO SCH ×2 (10:44→22:17)
--- NOTE | 2017-11-28 13:23 | Internal Med Progress Note ---
Hospitalist Progress Note - Encounter Date of Encounter: 11/28/17 Time of Encounter: 13:20 - Subjective Interval History: Ms. Cowan is a 42 year old female with history of bipolar disorder, hypothyroidism cardiac arrhythmia, PCOS, pericardial effusion and recent Right ureteral stent who presents to [facility] from [place] with complaint of altered mental status and fall. Pt does have UTI, Bacteremia with Proteus. Pt was placed on Zosyn later switched to PO Bactrim y/d. She is alert, awake and Oriented to self today. No events over night. No fever. Pt is still c/o lower abdomen and flank pain. - Exam Vitals: Temp Pulse Resp BP Pulse Ox 98.3 F 95 18 117/76 94 11/28/17 10:20 11/28/17 10:20 11/28/17 10:20 11/28/17 10:20 11/28/17 10:20 Exam: Gen: NAD. Lying comfortably in bed. HEENT: Normocephalic, atraumatic Cardiac: RRR, no murmur, normal S1/S2 Pulmonary: CTA b/l; no rales or rhonchi Abdomen: Normoactive bowel sounds, soft, NT/non distended, CVA tenderness + Extremities: no b/l LE edema, nontender calf, no cyanosis or clubbing Neuro: No focal deficits Psych: MRDD, Responds to commands, much improved from presentation - Assessment and Plan (1) UTI (urinary tract infection) Current Visit: Yes Status: Acute Assessment and Plan: Urine cx - Proteus Finished 7 days Zosyn Switched abx to Bactrim # 3/ (2) Bacteremia Current Visit: Yes Status: Acute Assessment and Plan: Due to UTI repeat blood cx no growth cont Bactrim (3) Encephalopathy Current Visit: Yes Status: Resolved Assessment and Plan: Toxic encephalopathy with UTI / Sepsis improving Physical deconditioning PT / OT recommend ECF placement. Will talk to caregivers (4) Kidney stone Current Visit: Yes Status: Acute Assessment and Plan: Right renal calculi - 1.4 cm ureteropelvic junction stone on the right side s/p Rt ureter stent placement on 11/15/[address] Myrick talked to Urology Dr. Funes, who do not recommend an invasive procedures now. Need to f/u with them as an out pt However since pt still c/o flank pain ordered stat CT of abd / pelvis which showed 1.4 cm ureteropelvic junction stone on the right side. Rt ureter stent, also noticed moderate hydronephrosis Since pt is still c/o severe pain, will talk to urology in AM about stone extraction process [place] her NPO after mid night (5) S/P ureteral stent placement Current Visit: Yes Status: Acute Assessment and Plan: As above (6) DVT prophylaxis Current Visit: Yes Status: Acute Assessment and Plan: SQ Heparin (7) Bipolar disorder Current Visit: No Status: Chronic Assessment and Plan: Continue home psych meds (8) Hypothyroidism Current Visit: Yes Status: Chronic Assessment and Plan: TSH within normal limits at [place] Continue Levothyroxine (9) Pericardial effusion Current Visit: Yes Status: Acute Assessment and Plan: re demonstrated on CT exam will get 2 D Echo - Time Spent with Patient Total time spent is greater than 50% in coordination of care (as documented) at patient's floor/unit and/or counseling patient: Internal Medicine: Result - Labs CBC & Chem 7: 11/26/17 17:36 11/26/17 17:36 - ABG Interpretation ABG results: PT/INR, D-dimer PT 11.6 Seconds (9.4-12.1) 11/20/17 03:52 - Impressions Impressions Abdomen/Pelvis CT 11/27/17 14:35 IMPRESSION: 1. New right ureteral stent in expected position with persistent moderate right hydronephrosis. 2. 1.4 cm x 0.9 cm x 1.2 cm calculus at the right ureterovesical junction, corresponding with the calcifications seen on the prior radiograph. Two additional nonobstructing calculi of similar size in the right renal collecting system. 3. Trace bilateral pleural effusions. 4. Small to moderate pericardial effusion. D/ / Saud Atkinson MD / Saud Atkinson MD Interpreting Provider: Saud Atkinson MD Consult Discharge Plan - Plan Referrals: Christiano Bull MD [Primary Care Provider] - (1) UTI (urinary tract infection) Qualifiers: Urinary tract infection type: acute cystitis Hematuria presence: with hematuria Qualified Code(s): N30.01 - Acute cystitis with hematuria (7) Bipolar disorder Qualifiers: Active/Remission status: remission status unspecified Qualified Code(s): F31.9 - Bipolar disorder, unspecified (8) Hypothyroidism Qualifiers: Hypothyroidism type: acquired Qualified Code(s): E03.9 - Hypothyroidism, unspecified
[2017-11-29] MEDS: Nystatin Cream 15 GM TUBE TP SCH ×3 (05:46→21:11)
[2017-11-29] MEDS: Levothyroxine 25 MCG TABLET PO SCH (05:47)
[2017-11-29] MEDS: *HR* Heparin 5,000 UNIT/ML VIAL SQ SCH ×2 (05:47→18:39)
[2017-11-29 06:53] LABS: Basophils # 0.1 K/mcL (0.0-0.2); Basophils % 0.7 %; Eosinophils # 0.2 K/mcL (0.0-0.6); Eosinophils % 2.3 %; Hematocrit 37.3 % (35.3-44.9); Hemoglobin 12.3 g/dL (11.5-15.4); Immature Granulocytes % 1.5 % (0-4); Lymphocytes # 1.7 K/mcL (0.6-4.6); Lymphocytes % 22.7 %; Mean Corpuscular Hemoglobin 32.2 pg (28.0-33.3); Mean Corpuscular Volume 97.6 fL (83.0-100.0); Mean Platelet Volume 9.2 fL (9.4-12.4); Monocytes # 0.5 K/mcL (0.0-1.3); Monocytes % 6.9 %; Neutrophils # 4.9 K/mcL (1.6-8.9); Platelet Count 330 K/mcL (140-400); Red Blood Count 3.82 M/mcL (3.82-4.97); Red Cell Distribution Width 13.8 % (11.5-14.5); Segmented Neutrophils % 65.9 %
[2017-11-29 07:49] LABS: Calcium 9.7 mg/dL (8.6-10.3); Potassium 3.7 mEq/L (3.5-5.1)
--- NOTE | 2017-11-29 07:51 | Internal Med Progress Note ---
Hospitalist Progress Note - Encounter Date of Encounter: 11/29/17 Time of Encounter: 07:51 - Exam Vitals: Temp Pulse Resp BP Pulse Ox 98.2 F 97 16 106/67 96 11/29/17 04:43 11/29/17 04:43 11/29/17 04:43 11/29/17 04:43 11/29/17 04:43 - Time Spent with Patient Total time spent is greater than 50% in coordination of care (as documented) at patient's floor/unit and/or counseling patient: Internal Medicine: Result - Labs CBC & Chem 7: 11/29/17 06:38 11/29/17 06:38 Labs: Short CBC 11/29/17 Range/Units 06:38 WBC 7.4 (4.3-11.1) K/mcL Hgb 12.3 (11.5-15.4) g/dL Hct 37.3 (35.3-44.9) % Plt Count 330 (140-400) K/mcL Neutrophils # 4.9 (1.6-8.9) K/mcL BMP 11/29/17 06:38 Sodium 140 Potassium 3.7 Chloride 107 Carbon Dioxide 25 BUN 21 H Creatinine 1.21 H Glucose 99 Calcium 9.7 - ABG Interpretation ABG results: PT/INR, D-dimer PT 11.6 Seconds (9.4-12.1) 11/20/17 03:52 Consult Discharge Plan - Plan Referrals: Christiano Bull MD [Primary Care Provider] -
[2017-11-29] MEDS ORDERED: Perflutren Lipid Microsphere 1.3 ML in 0.9 % Sodium Chloride 8.7 ML IVP ONE (08:20)
[2017-11-29] MEDS: Loratadine 10 MG TABLET PO SCH (10:35)
[2017-11-29] MEDS: Sulfamethoxazole/Trimeth DS 1 EACH TABLET PO SCH ×2 (10:35→21:00)
[2017-11-29] MEDS: OXYCODONE Oral CONC 10 MG/0.5 ML ORAL.SYG SL PRN ×2 (11:34→14:37)
[2017-11-29] MEDS: Acetaminophen 325 MG TABLET PO PRN (12:55)
--- NOTE | 2017-11-29 14:02 | Internal Med Progress Note ---
Hospitalist Progress Note - Encounter Date of Encounter: 11/29/17 Time of Encounter: 12:45 - Subjective Interval History: Ms. Cowan is a 42 year old female with history of bipolar disorder, hypothyroidism cardiac arrhythmia, PCOS, pericardial effusion and recent Right ureteral stent who presents to [facility] from [place] with complaint of altered mental status and fall. Pt does have UTI, Bacteremia with Proteus. Pt was placed on Zosyn later switched to PO Bactrim. She is alert, awake and Oriented to self today. No events over night. No fever. Pt is still c/o lower abdomen and flank pain. - Exam Vitals: Temp Pulse Resp BP Pulse Ox 98.0 F 98 15 97/69 94 11/29/17 10:45 11/29/17 10:45 11/29/17 10:45 11/29/17 10:45 11/29/17 10:45 Exam: Gen: NAD. Lying comfortably in bed. HEENT: Normocephalic, atraumatic Cardiac: RRR, no murmur, normal S1/S2 Pulmonary: CTA b/l; no rales or rhonchi Abdomen: Normoactive bowel sounds, soft, NT/non distended, CVA tenderness + Extremities: no b/l LE edema, nontender calf, no cyanosis or clubbing Neuro: No focal deficits Psych: MRDD, Responds to commands, much improved from presentation - Assessment and Plan (1) UTI (urinary tract infection) Current Visit: Yes Status: Acute Assessment and Plan: Urine cx - Proteus Finished 7 days Zosyn Switched abx to Bactrim # 5/7 (2) Bacteremia Current Visit: Yes Status: Acute Assessment and Plan: Due to UTI repeat blood cx no growth cont Bactrim (3) Encephalopathy Current Visit: Yes Status: Resolved Assessment and Plan: Toxic encephalopathy with UTI / Sepsis improving Physical deconditioning PT / OT recommend ECF placement. Will talk to caregivers (4) Kidney stone Current Visit: Yes Status: Acute Assessment and Plan: Right renal calculi - 1.4 cm ureteropelvic junction stone on the right side s/p Rt ureter stent placement on 11/15/[address] Myrick talked to Urology Dr. Funes, who do not recommend an invasive procedures now. Need to f/u with them as an out pt However since pt still c/o flank pain ordered stat CT of abd / pelvis which showed 1.4 cm ureteropelvic junction stone on the right side. Rt ureter stent, also noticed moderate hydronephrosis Since pt is still c/o severe pain, talked to Urology for reevaluation. (5) S/P ureteral stent placement Current Visit: Yes Status: Acute Assessment and Plan: As above (6) Pericardial effusion Current Visit: Yes Status: Acute Assessment and Plan: re demonstrated on CT exam 2 D Echo showed large pericardial effusion CTS consulted.. (7) Bipolar disorder Current Visit: No Status: Chronic Assessment and Plan: Continue home psych meds (8) Hypothyroidism Current Visit: Yes Status: Chronic Assessment and Plan: TSH within normal limits at [place] Continue Levothyroxine (9) DVT prophylaxis Current Visit: Yes Status: Acute Assessment and Plan: SQ Heparin - Time Spent with Patient Total time spent is greater than 50% in coordination of care (as documented) at patient's floor/unit and/or counseling patient: Internal Medicine: Result - Labs CBC & Chem 7: 11/29/17 06:38 11/29/17 06:38 Labs: Short CBC 11/29/17 Range/Units 06:38 WBC 7.4 (4.3-11.1) K/mcL Hgb 12.3 (11.5-15.4) g/dL Hct 37.3 (35.3-44.9) % Plt Count 330 (140-400) K/mcL Neutrophils # 4.9 (1.6-8.9) K/mcL BMP 11/29/17 06:38 Sodium 140 Potassium 3.7 Chloride 107 Carbon Dioxide 25 BUN 21 H Creatinine 1.21 H Glucose 99 Calcium 9.7 - ABG Interpretation ABG results: PT/INR, D-dimer PT 11.6 Seconds (9.4-12.1) 11/20/17 03:52 - Impressions Impressions Echocardiogram 11/28/17 13:10 Impressions: LVEF 65%. Normal LV chamber size, wall thickness and function. Mild left ventricular diastolic dysfunction. There appears to be a false tendon in the LV apex, which is a benign finding. There is also a possible adherent echodensity, which may represent thickening and calcification, but LV thrombus cannot be excluded. Normal right ventricular structure and function. No evidence of pulmonary hypertension. There is a large circumferential pericardial effusion present. There is no echocardiographic evidence of tamponade. Clinical correlation suggested. IV access was not present during echocardiogram. Recommend a repeat study with Definity to evaluate the LV apex. This will also provide an opportunity Consult Discharge Plan - Plan Referrals: Christiano Bull MD [Primary Care Provider] - (1) UTI (urinary tract infection) Qualifiers: Urinary tract infection type: acute cystitis Hematuria presence: with hematuria Qualified Code(s): N30.01 - Acute cystitis with hematuria (7) Bipolar disorder Qualifiers: Active/Remission status: remission status unspecified Qualified Code(s): F31.9 - Bipolar disorder, unspecified (8) Hypothyroidism Qualifiers: Hypothyroidism type: acquired Qualified Code(s): E03.9 - Hypothyroidism, unspecified
--- NOTE | 2017-11-29 15:11 | Cardiothoracic Consult Note ---
Date of Encounter: 11/29/17 Time of Encounter: 15:09 Assessment and Plan (1) Pericardial effusion Current Visit: Yes Status: Acute The assessment and plan as outlined above was discussed with the patient and/or family members who expressed understanding and agreement. All questions were answered. The patient has an echocardiogram which reveals a large, circumferential pericardial effusion with no signs of tamponade. She has no signs of A knot on physical exam. The patient is retarded and has bipolar disorder as well as psychotic episodes. I feel that percutaneous drainage in the cardiac catheterization lab would be the best approach to minimize her suffering. If for some reason this is not possible, we could take her to the operating room f or pericardial window with drainage and biopsy. I would have cardiology see her to see the feasibility of percutaneous drainage. The patient's guardian is not available today and I will meet with them tomorrow morning at 8:00. - History of Present Illness History of present illness: Ms. Cowan is a 42 year old female The patient is a 42-year-old female who has a history of mental retardation, psychotic episodes and bipolar disease. She lives in an extended care facility. She was recently seen with a kidney stone and underwent a ureteral stent. She was admitted with a urinary tract infection and has been seen by infectious disease. She is followed for a pericardial effusion. An echocardiogram on this admission revealed a large pericardial effusion with no signs of tamponade. The ejection fraction was 65%. She is referred for a possible pericardial window. Past Med Surg Social Fam HX - Past Medical History Medical history: other Additional medical history: PCOS, arrythmia Psychiatric history: bipolar, schizophrenia, other - Social History Smoking Status: Never smoker Smokeless Tobacco Status: No Alcohol use: none Drug use: none Medications and Allergies Acetaminophen [Tylenol] 1,000 mg PO BID PRN 11/15/17 [History] Atorvastatin [Lipitor] 40 mg PO HS 11/15/17 [History] Cetirizine HCl [Zyrtec] 10 mg PO DAILY PRN 11/15/17 [History] Cyanocobalamin (Vitamin B-12) [Vitamin B12] 500 mcg PO DAILY 11/15/17 [History] DULoxetine [Cymbalta] 90 mg PO QAM 11/15/17 [History] Docusate Sodium [Dulcolax Stool Softener] 200 mg PO DAILY 11/15/17 [History] Haloperidol Decanoate [Haldol] 75 mg IM QMONTH 11/15/17 [History] Levothyroxine [Synthroid] 25 mcg PO 0630 11/15/17 [History] Medroxyprogesterone Acetate [Provera] 10 mg PO DAILY PRN 11/15/17 [History] Nystatin POWDER [Nystop] 1 appl TP TID PRN 11/15/17 [History] Polyethylene Glycol 3350 [MiraLAX] 17 gm PO DAILY PRN 11/15/17 [History] Psyllium Husk [Fiber] 0.52 gm PO BID 11/15/17 [History] metFORMIN [Glucophage] 500 mg PO BIDWM 11/15/17 [History] Allergy/AdvReac Type Severity Reaction Status Date / Time No Known Allergies Allergy Verified 11/15/17 14:58 All Systems Review: The remainder of the systems were reviewed and are negative Physical Examination Vital Signs, Last 4 Hours Temp Pulse Resp BP Pulse Ox 11/29/17 14:04 98.2 F 87 15 110/72 94 The patient is nonverbal, but seems to respond to simple commands. No jugular venous distention. Heart is in a regular rate and rhythm with good heart tones. No pulsus paradoxus. Abdomen is benign. Lungs are clear to percussion and auscultation. Results 11/29/17 06:38 11/29/17 06:38 Lab Results, Last 24 hours 11/29/17 11/29/17 06:38 06:38 WBC 7.4 Hgb 12.3 Hct 37.3 Plt Count 330 Sodium 140 Potassium 3.7 Chloride 107 Carbon Dioxide 25 BUN 21 H Creatinine 1.21 H Glucose 99 Calcium 9.7 Consult Discharge Plan - Plan Referrals: Christiano Bull MD [Primary Care Provider] -
[2017-11-29 16:04] LABS: Prothrombin Time 10.7 Seconds (9.4-12.1)
[2017-11-29 16:06] LABS: Activated Partial Thrombo Time 29.1 Seconds (26.0-36.0)
--- NOTE | 2017-11-29 20:57 | Urology Progress Note ---
Date of Encounter: 11/29/17 Time of Encounter: 20:54 - Assessment and Plan (1) Abdominal pain Current Visit: Yes Status: Acute Assessment and plan: Unclear etiology. Patient unable to cooperate with exam or history. CT as recent as 48 hours ago show urologic stent in good position. Pain cannot be secondary to stone or hydronephrosis with functioning stent in place. Patient may have some stent discomfort attributed to her abdominal pain, but this is highly speculative. Plan: Trial of Flomax to rule out/help with poor stent toleration Qualifiers: Abdominal location: epigastric Qualified Code(s): R10.13 - Epigastric pain (2) Kidney stone Current Visit: Yes Status: Acute Assessment and plan: Obstructing stones diverted with a urinary stent by Dr. Myrick during this admission 1+ weeks ago. Arrangements are being made for definitive stone addressed via percutaneous approach in the coming weeks on an outpatient basis. Plan: No further indications for urologic intervention at this time. Progress Note Subjective: other (Patient appears comfortable. Difficult to assess due to developed mental delay. Nursing does report the patient frequently complains of mid abdominal pain.) Objective Initial Vital Signs Temp Pulse Resp BP Pulse Ox 98.3 F 98 15 135/80 99 11/20/17 02:03 11/20/17 02:03 11/20/17 02:03 11/20/17 02:03 11/20/17 02:03 - General physical appearance Present: well developed, well nourished, no distress - Respiratory Present: normal respiratory effort - Integumentary Present: no rash, no abnormal pigmentation - Musculoskeletal Present: normal posture - Labs 11/29/17 06:38 11/29/17 06:38 Diabetes panel 11/29/17 Range/Units 06:38 Sodium 140 (136-145) mEq/L Potassium 3.7 (3.5-5.1) mEq/L Chloride 107 (98-107) mEq/L Carbon Dioxide 25 (23-29) mEq/L BUN 21 H (6-20) mg/dL Creatinine 1.21 H (0.60-1.20) mg/dL Glucose 99 (70-105) mg/dL Calcium 9.7 (8.6-10.3) mg/dL Calcium panel 11/29/17 Range/Units 06:38 Calcium 9.7 (8.6-10.3) mg/dL Pituitary panel 11/29/17 Range/Units 06:38 Sodium 140 (136-145) mEq/L Potassium 3.7 (3.5-5.1) mEq/L Chloride 107 (98-107) mEq/L Carbon Dioxide 25 (23-29) mEq/L BUN 21 H (6-20) mg/dL Creatinine 1.21 H (0.60-1.20) mg/dL Glucose 99 (70-105) mg/dL Calcium 9.7 (8.6-10.3) mg/dL Adrenal panel 11/29/17 Range/Units 06:38 Sodium 140 (136-145) mEq/L Potassium 3.7 (3.5-5.1) mEq/L Chloride 107 (98-107) mEq/L Carbon Dioxide 25 (23-29) mEq/L BUN 21 H (6-20) mg/dL Creatinine 1.21 H (0.60-1.20) mg/dL Glucose 99 (70-105) mg/dL Calcium 9.7 (8.6-10.3) mg/dL - Imaging CT scan - abdomen: image reviewed CT scan - pelvis: image reviewed (CT of abdomen and pelvis 11/27/2017 images reviewed and interpreted independently) Consult Discharge Plan - Plan Referrals: Christiano Bull MD [Primary Care Provider] -
[2017-11-29] MEDS ORDERED: Ondansetron ODT 4 MG TAB.RAPDIS SL ONE (20:58)
[2017-11-30] MEDS: OXYCODONE Oral CONC 10 MG/0.5 ML ORAL.SYG SL PRN ×4 (00:23→22:23)
[2017-11-30] MEDS: *HR* Heparin 5,000 UNIT/ML VIAL SQ SCH ×2 (06:23→17:07)
[2017-11-30] MEDS: Levothyroxine 25 MCG TABLET PO SCH (06:23)
[2017-11-30] MEDS: Sulfamethoxazole/Trimeth DS 1 EACH TABLET PO SCH ×2 (08:46→19:55)
[2017-11-30] MEDS: Loratadine 10 MG TABLET PO SCH (08:46)
[2017-11-30] MEDS: Nystatin Cream 15 GM TUBE TP SCH ×2 (08:46→19:49)
--- NOTE | 2017-11-30 09:34 | Cardiothoracic Progress Note ---
Date of Encounter: 11/30/17 Time of Encounter: 09:31 - Assessment and plan (1) Pericardial effusion Current Visit: Yes Status: Acute I was told that the patient's guardian would be in the room this morning at 8:00. However, he was not there. Cardiology consult is still pending. I will attempt to contact the patient's guardian. She can resume a regular diet for now. - Subjective Interval history: The patient is nonverbal and has no complaints. Vital Signs, Last 4 Hours Temp Pulse Resp BP Pulse Ox 11/30/17 07:01 97.4 F L 81 15 138/92 92 Oxgyen Flow Rate Oxygen Flow Rate (LPM) 2 Weight 11/28/17 11/29/17 11/30/17 23:59 23:59 23:59 Weight 89.3 kg 87.9 kg 88.1 kg Lungs are clear to percussion and auscultation. Heart is in a regular rate and rhythm with good heart tones. No jugular venous distention. No pulsus paradoxus. - Labs 11/29/17 06:38 11/29/17 06:38 Lab Results, Last 24 hours 11/29/17 15:38 INR 1.0 APTT 29.1 Consult Discharge Plan - Plan Referrals: Christiano Bull MD [Primary Care Provider] -
--- NOTE | 2017-11-30 09:35 | Cardiology Consult Note ---
Date of Encounter: 11/30/17 Time of Encounter: 09:31 Assessment and Plan Discussion w patient/family: The assessment and plan as outlined above was discussed with the patient and/or family members who expressed understanding and agreement. All questions were answered. Thank you for involving us in the care of your patient. Please call with any questions. History of Present Illness Consult date: 11/30/17 Consult reason: Pericardial Effusion Chief complaint: AMS secondary to UTI History of present illness: Ms. Cowan is a 42 year old female whom which cardiology has been consulted due to pericardial effusion. History could not be taken from patient due to unspecified intelllectual disability. Pericardial effusion was seen on echo by CT surgery, who recommended percutaneous drainage. If unsuccessful they will drain via pericardial window. Patient presented to hospital on 11/20 for altered mental status and fall seocndary to UTI. Patient was d/c from hospital on 11/17 after treatment for nephrolithiasis. Pathiet has history signifcant for arrthymia, hypothryoidism bipolar diosrder, PCOS, and uteral stent. Past Med Surg Social Fam HX - Past Medical History Medical history: other Additional medical history: PCOS, arrythmia Psychiatric history: bipolar, schizophrenia, other - Social History Smoking Status: Never smoker Smokeless Tobacco Status: No Alcohol use: none Drug use: none Medications and Allergies Acetaminophen [Tylenol] 1,000 mg PO BID PRN 11/15/17 [History] Atorvastatin [Lipitor] 40 mg PO HS 11/15/17 [History] Cetirizine HCl [Zyrtec] 10 mg PO DAILY PRN 11/15/17 [History] Cyanocobalamin (Vitamin B-12) [Vitamin B12] 500 mcg PO DAILY 11/15/17 [History] DULoxetine [Cymbalta] 90 mg PO QAM 11/15/17 [History] Docusate Sodium [Dulcolax Stool Softener] 200 mg PO DAILY 11/15/17 [History] Haloperidol Decanoate [Haldol] 75 mg IM QMONTH 11/15/17 [History] Levothyroxine [Synthroid] 25 mcg PO 0630 11/15/17 [History] Medroxyprogesterone Acetate [Provera] 10 mg PO DAILY PRN 11/15/17 [History] Nystatin POWDER [Nystop] 1 appl TP TID PRN 11/15/17 [History] Polyethylene Glycol 3350 [MiraLAX] 17 gm PO DAILY PRN 11/15/17 [History] Psyllium Husk [Fiber] 0.52 gm PO BID 11/15/17 [History] metFORMIN [Glucophage] 500 mg PO BIDWM 11/15/17 [History] Allergy/AdvReac Type Severity Reaction Status Date / Time No Known Allergies Allergy Verified 11/15/17 14:58 ROS unobtainable: due to mental status All Systems Review: The remainder of the systems were reviewed and are negative Physical Examination Vital Signs, Last 4 Hours Temp Pulse Resp BP Pulse Ox 11/30/17 07:01 97.4 F L 81 15 138/92 92 General: Other HEENT: Atraumatic Neck: No JVD Cardiac: Reg Rate and Rhythm, Normal S1 and S2, No Murmur Lungs: Normal Breath Sounds, No Wheeze, Rales, Rhonchi Neuro: Alert and responsive, No focal deficits noted Skin: No rashes noted on visualized skin Musculoskeletal: No Chest Wall Tenderness Extremities: No Clubbing, No Cyanosis, No Edema, Normal Pulses (unable to perform auscultation) Results 11/29/17 06:38 11/29/17 06:38 Lab Results 11/29/17 15:38 INR 1.0 APTT 29.1 Consult Discharge Plan - Plan Referrals: Christiano Bull MD [Primary Care Provider] -
--- NOTE | 2017-11-30 11:23 | Event Note ---
<Demond Chase - Last Filed: 11/30/17 10:14> Date of Encounter: 11/30/17 Time of Encounter: 10:09 - Cardiology Event Note Ms. Cowan is a 42 year old female whom which cardiology has been consulted due to pericardial effusion. Pericardial effusion was seen on echo by CT surgery, who recommended percutaneous drainage. Due to intellectual disability it will most likely be difficult to have patient sit still for percutaneous pericardial drainage. Recommend drainage via pericardial window in OR. Spoke to CT surgery and they are aware of recommendation. <Piero Natarajan - Last Filed: 11/30/17 15:31> - Cardiology Event Note I examined this patient and my medical decision-making was reviewed with the Resident Physician. I agree with the documented findings, disposition and treatment plan as described except to the extent set forth below. 42-year-old female with MR does not follow commands likely high risk for pericardiocentesis. Patient likely would benefit from general anesthesia and a pericardial window for her pericardial effusion.
--- NOTE | 2017-11-30 11:27 | Anesthesia Evaluation PreOp ---
Date of Encounter: 12/01/17 Time of Encounter: 07:45 - Past History Planned Operation: subxyphoid pericardial window Cardiac History: Denies any Significant Hx, Other (currently has pericardial effusion without tamponade) Pulmonary History: Denies Any Significant HX [employer] History: Other (MRDD, schizophrenia, bipolar) Other Medical History: Renal (kidney stones, s/p stent week ago), Other (obese) Alcohol Use: none Drug use: none Medications and Allergies Acetaminophen [Tylenol] 1,000 mg PO BID PRN 11/15/17 [History] Atorvastatin [Lipitor] 40 mg PO HS 11/15/17 [History] Cetirizine HCl [Zyrtec] 10 mg PO DAILY PRN 11/15/17 [History] Cyanocobalamin (Vitamin B-12) [Vitamin B12] 500 mcg PO DAILY 11/15/17 [History] DULoxetine [Cymbalta] 90 mg PO QAM 11/15/17 [History] Docusate Sodium [Dulcolax Stool Softener] 200 mg PO DAILY 11/15/17 [History] Haloperidol Decanoate [Haldol] 75 mg IM QMONTH 11/15/17 [History] Levothyroxine [Synthroid] 25 mcg PO 0630 11/15/17 [History] Medroxyprogesterone Acetate [Provera] 10 mg PO DAILY PRN 11/15/17 [History] Nystatin POWDER [Nystop] 1 appl TP TID PRN 11/15/17 [History] Polyethylene Glycol 3350 [MiraLAX] 17 gm PO DAILY PRN 11/15/17 [History] Psyllium Husk [Fiber] 0.52 gm PO BID 11/15/17 [History] metFORMIN [Glucophage] 500 mg PO BIDWM 11/15/17 [History] Allergy/AdvReac Type Severity Reaction Status Date / Time No Known Allergies Allergy Verified 11/15/17 14:58 - Meds/Allergy Pre-op Review Medications Reviewed: Yes Allergies Reviewed: Yes Beta Blockers on Current Med List: No Anesthesia Results - Labs 12/01/17 04:08 12/01/17 04:08 - Imaging Additional studies: echo: Findings: Study Quality * Technically adequate exam. ECG Findings * Sinus rhythm with BBB. Left Ventricle * LVEF 65%. * Normal LV chamber size, wall thickness and function. * Atypical septal motion consistent with bundle branch block. * Mild left ventricular diastolic dysfunction. * There appears to be a false tendon in the LV apex, which is a benign finding. There is also a possible adherent echodensity, which may represent thickening and calcification, but LV thrombus cannot be excluded. Recommend repeat study with Definity contrast. Right Ventricle * Normal right ventricular structure and function. Left Atrium * Mildly dilated left atrium. Right Atrium * Normal right atrial size. Aortic Valve * Aortic valve not well visualized. * No aortic regurgitation. * No aortic stenosis. Mitral Valve * Normal mitral valve structure and function. * No mitral regurgitation. * No mitral stenosis. Tricuspid Valve * Normal tricuspid valve structure and function. * Trace tricuspid regurgitation. * No evidence of pulmonary hypertension. Pulmonic Valve * Normal pulmonic valve structure and function. * No pulmonic regurgitation. Aorta * Normally sized aortic root. Pericardium * There is a large circumferential pericardial effusion present. * There is no echocardiographic evidence of tamponade. IVC * Normal IVC dimensions and inspiratory collapse. Pulmonary Artery * Normal visualized portions of the main pulmonary artery. Anesthesia Exam Selected Entries 11/30/17 10:24 Temperature 98.1 F Pulse Rate 86 Respiratory Rate 15 Blood Pressure 105/58 O2 Sat by Pulse Oximetry 95 Oxygen Delivery Method Room Air - HEENT Pupil (Motor): EOMI Mallampati: III Teeth: Poor dentition Oral Opening: Less than or equal to 3 - [employer] LOC: Oriented [employer] Motor: Normal RUE, Normal LUE, Normal RLE, Normal LLE, Normal Face [employer] Sensory: Normal: RUE, LUE, RLE, LLE, Face - Cardiac Rhythm: Regular Murmur: None - Pulmonary Breath Sounds: bilateral Clear Respiratory Effort: Symmetrical Anesthesia Assess/Plan ASA Score: 3 Modified [place] Scale for Level of Consciousness: Cooperative, oriented, and tranquil Anesthetic Plan: General Monitoring Plan: Standard Monitors, A-Line (possible) Recovery Plan: PACU (pt will undergo GA, may need a-line. May need ICU based on intra-op course but may be able to go to PACU. Was unable to contact POA, will use implied consent from surgical consent)
--- NOTE | 2017-11-30 11:50 | Event Note ---
Date of Encounter: 11/30/17 Time of Encounter: 11:48 Cardiology feels that drainage in the OR is the best approach. I was able to contact the patient's guardian and obtain a verbal consent, which was witnessed by 2 of our office nurses. Risks of surgery include , infection, stroke, bleeding, myocardial infarction, renal or respiratory failure, recurrent pericardial effusion, lack of a diagnosis and need for a sternotomy. The procedure, its risks, benefits and alternatives were explained and they wish to proceed. They have no questions.
--- NOTE | 2017-11-30 15:25 | Internal Med Progress Note ---
<ClaudejacoboFariba trujillo E - Last Filed: 11/30/17 15:22> Hospitalist Progress Note - Encounter Date of Encounter: 11/30/17 Time of Encounter: 09:00 - Subjective Interval History: Ms. Cowan is a 42 year ol female with history of biolar disorder, hypothyroidism, cardiac arrythmia, PCOS. She was brought to [facility] from [place] after her ca regiver noticed odd behavior adn a fall. Last admission was 11/15-11/17 for dark urine and pain. She had a UTI and kidney stone. Right ureteral stent placed. Patient will follow some simple commands, will not leave oxygen or IV in place for nursing staff. She does not appear to be in any distress besides telling me er arm hurts and points to [facility] area where she took her PICC line out. - Exam Vitals: Temp Pulse Resp BP Pulse Ox 97.4 F L 85 16 150/80 91 11/30/17 14:22 11/30/17 14:22 11/30/17 14:22 11/30/17 14:22 11/30/17 14:22 Exam: General: awake, alert, not oriented to self. She cannot answer questions besides if she hurts anywhere. No acute distress. Cardiac: RRR, no murmur, rubs or gallops PulmonaryL Clear to auscultation bilaterally, no rales, rhonchi, or wheezing Abdomen: soft, non-tender, no gaurding or rigidity, normoactive bowel sounds Extremities: no pedal edema. Right small toe has a small wound on it Psych: MRDD, responds to some commands - Assessment and Plan (1) UTI (urinary tract infection) Current Visit: Yes Status: Acute Assessment and Plan: Urine cultures grew proteus, continue Bactrim PO, as per ID will continue until December 04. (2) Pericardial effusion Current Visit: Yes Status: Acute Assessment and Plan: Planned for surgical pericardial window Guardian was contacted and consented to procedure (3) Bacteremia Current Visit: Yes Status: Acute Assessment and Plan: Will continue Bactrim for Proteus infection, as per ID will continue until December 04. (4) Kidney stone Current Visit: Yes Status: Acute Assessment and Plan: Right renal calculi 1/4 cm at ureteropelvic junction on the right side. S/P rt ureteral stent placement on 11/[address] Funes does not recommend any invasive procedures at this time, will follow as an outpatient Started on flomax to help with ureteral stent irritation (5) S/P ureteral stent placement Current Visit: Yes Status: Acute Assessment and Plan: see above (6) Hypothyroidism Current Visit: Yes Status: Chronic Assessment and Plan: Continue levothyroxine home dose (7) Encephalopathy Current Visit: Yes Status: Resolved Assessment and Plan: Patient is back to her baseline as per caregiver (8) Bipolar disorder Current Visit: No Status: Chronic Assessment and Plan: continue home psych medications DVT Prophylaxis: SubQ heparin - Time Spent with Patient Total time spent is greater than 50% in coordination of care (as documented) at patient's floor/unit and/or counseling patient: Internal Medicine: Result - Labs CBC & Chem 7: 11/29/17 06:38 11/29/17 06:38 - ABG Interpretation ABG results: PT/INR, D-dimer PT 10.7 Seconds (9.4-12.1) 11/29/17 15:38 - Impressions Impressions Chest X-Ray 11/29/17 15:15 IMPRESSION: 1. No acute cardiopulmonary process. 2. Mildly prominent cardiac contour most likely due to pericardial effusion as seen on CT. D/ / Saud Atkinson MD / Saud Atkinson MD Interpreting Provider: Saud Atkinson MD Consult Discharge Plan - Plan Referrals: Christiano Bull MD [Primary Care Provider] - <Deepak Titus - Last Filed: 11/30/17 17:29> Hospitalist Progress Note - Exam Vitals: Temp Pulse Resp BP Pulse Ox 97.4 F L 85 16 150/80 91 11/30/17 14:22 11/30/17 14:22 11/30/17 14:22 11/30/17 14:22 11/30/17 14:22 - Assessment and Plan (1) Kidney stone Current Visit: Yes Status: Acute (2) S/P ureteral stent placement Current Visit: Yes Status: Acute (3) DVT prophylaxis Current Visit: Yes Status: Acute (4) Bipolar disorder Current Visit: No Status: Chronic (5) Hypothyroidism Current Visit: Yes Status: Chronic (6) Encephalopathy Current Visit: Yes Status: Resolved (7) Pericardial effusion Current Visit: Yes Status: Acute (8) UTI (urinary tract infection) Current Visit: Yes Status: Acute (9) Bacteremia Current Visit: Yes Status: Acute - Time Spent with Patient Total time spent is greater than 50% in coordination of care (as documented) at patient's floor/unit and/or counseling patient: Internal Medicine: Result - Labs CBC & Chem 7: 11/29/17 06:38 11/29/17 06:38 - ABG Interpretation ABG results: PT/INR, D-dimer PT 10.7 Seconds (9.4-12.1) 11/29/17 15:38 - Attending Attestation I examined this patient and my medical decision-making was reviewed with the Resident Physician. I agree with the documented findings, disposition and treatment plan as described except to the extent set forth below. <Fariba Zamora - Last Filed: 11/30/17 15:22> (1) UTI (urinary tract infection) Qualifiers: Urinary tract infection type: acute cystitis Hematuria presence: with hematuria Qualified Code(s): N30.01 - Acute cystitis with hematuria (6) Hypothyroidism Qualifiers: Hypothyroidism type: acquired Qualified Code(s): E03.9 - Hypothyroidism, unspecified (8) Bipolar disorder Qualifiers: Active/Remission status: remission status unspecified Qualified Code(s): F31.9 - Bipolar disorder, unspecified <Deepak Titus - Last Filed: 11/30/17 17:29> (4) Bipolar disorder Qualifiers: Active/Remission status: remission status unspecified Qualified Code(s): F31.9 - Bipolar disorder, unspecified (5) Hypothyroidism Qualifiers: Hypothyroidism type: acquired Qualified Code(s): E03.9 - Hypothyroidism, unspecified (8) UTI (urinary tract infection) Qualifiers: Urinary tract infection type: acute cystitis Hematuria presence: with hematuria Qualified Code(s): N30.01 - Acute cystitis with hematuria
[2017-11-30] MEDS ORDERED: Ringers Solution, Lactated 1,000 ML IVC SCH (17:30)
[2017-11-30] MEDS: Acetaminophen 325 MG TABLET PO PRN (19:43)
[2017-12-01 04:43] LABS: Basophils # 0.1 K/mcL (0.0-0.2); Basophils % 0.8 %; Eosinophils # 0.1 K/mcL (0.0-0.6); Eosinophils % 1.7 %; Hematocrit 34.8 % (35.3-44.9); Hemoglobin 11.5 g/dL (11.5-15.4); Immature Granulocytes % 0.8 % (0-4); Lymphocytes % 25.7 %; Mean Corpuscular Hemoglobin 32.8 pg (28.0-33.3); Mean Corpuscular Volume 99.1 fL (83.0-100.0); Mean Platelet Volume 9.4 fL (9.4-12.4); Monocytes # 0.6 K/mcL (0.0-1.3); Monocytes % 7.6 %; Neutrophils # 4.8 K/mcL (1.6-8.9); Platelet Count 299 K/mcL (140-400); Red Blood Count 3.51 M/mcL (3.82-4.97); Red Cell Distribution Width 13.9 % (11.5-14.5); Segmented Neutrophils % 63.4 %
[2017-12-01 05:08] LABS: Albumin 3.4 g/dL (3.5-5.7); Albumin/Globulin Ratio 1.3 (1.1-2.2); Bilirubin,Total 0.3 mg/dL (0.3-1.0); Calcium 9.3 mg/dL (8.6-10.3); Globulin 2.7 g/dL (2.4-3.5); Potassium 3.6 mEq/L (3.5-5.1); Total Protein 6.1 g/dL (6.4-8.9)
[2017-12-01] MEDS: *HR* Heparin 5,000 UNIT/ML VIAL SQ SCH ×2 (06:30→17:40)
[2017-12-01] MEDS ORDERED: *HR* PHENYLEPHRINE 1,000 MCG/10 ML SYRINGE IVP ONE (09:12)
[2017-12-01] MEDS ORDERED: *HR* Rocuronium Bromide 50 MG/5 ML VIAL ONE (09:12)
[2017-12-01] MEDS ORDERED: Bupivacaine/EPI 1:200k 0.5%PF 30 ML VIAL ONE (09:15)
[2017-12-01] MEDS ORDERED: *HR* Propofol 200 MG/20 ML VIAL IVP ONE (09:22)
[2017-12-01] MEDS ORDERED: *HR* Midazolam HCl 5 MG/5 ML VIAL IVP ONE (09:22)
[2017-12-01] MEDS ORDERED: *HR* FentaNYL (PF) 250 MCG/5 ML VIAL ONE (09:22)
[2017-12-01] MEDS ORDERED: Ondansetron 4 MG/2 ML VIAL ONE (09:36)
[2017-12-01] MEDS ORDERED: Dexamethasone 4 MG/ML VIAL ONE (09:36)
[2017-12-01] MEDS ORDERED: SUGAMMADEX SODIUM 500 MG/5 ML VIAL IV ONE (10:04)
[2017-12-01] MEDS ORDERED: *HR* Meperidine 25 MG/ML SYRINGE IVP PRN (10:20)
[2017-12-01] MEDS ORDERED: Acetaminophen IV 1,000 MG/100 ML INFUS..BTL IVPB ONE (10:20)
[2017-12-01] MEDS ORDERED: Ketorolac 30 MG/ML VIAL IVP ONE (10:20)
--- NOTE | 2017-12-01 10:26 | Operative Note ---
Date of procedure: 12/01/17 Pre-op diagnosis: Pericardial effusion Post-op diagnosis: same Procedure: 1. Subxiphoid pericardial window Implants: None. Complications: None. Anesthesia: GETA Local Anesthetics: 0.5% Sensorcaine HCL with Epinephrine 1:200,000 SubQ (cc) (5) Surgeon: Geoff Lindquist Was there an customer service assistant present: Yes Behavioral Sciences Instructor: Henry Hoyt Estimated blood loss (cc): 5 IV fluids (cc): 500 Specimen: Pericardial fluid Condition: stable Disposition: PACU Procedure in Detail: INDICATIONS FOR OPERATION: The patient is a 42-year-old lady with MMRD was admitted to [facility] on 11/15/2017 with a diagnosis of a UTI and retained renal calculus. She underwent cystoscopy with a right ureteral stent placement. She was discharged to her assisted care living facility and the christian science healer revealed reported that the patient remained "unwell". She was readmitted on 11/20/[address] revealed a small to moderate pericardial effusion through the upper cuts. Subsequent transthoracic echocardiogram revealed an LVEF 65% with normal left ventricular size, wall thickness, and function. A large circum ferential pericardial effusion was also noted. She was recommended for drainage of the pericardial effusion. FINDINGS AT OPERATION: The patient had approximately 200 mL of a clear yellow fluid in the pericardium. No other abnormalities were noted. DESCRIPTION OF OPERATION: After obtaining informed consent from the patient's power of contracts attorney, she was taken to the operating room where a satisfactory general tracheal anesthetic was induced. Appropriate monitor lines placed, and the patient's neck, chest, and upper abdomen were prepped and draped in a sterile fashion. A vertical incision was made over the xiphoid process to the skin and subcutaneous tissue. The xiphoid process was lifted anteriorly and the pericardial tissue was dissected from the pericardium. The pericardium was entered and approximately 200 mL of a clear yellow fluid was withdrawn. A portion of the fluid was sent for CBC, chemistry (including glucose, LDH, total protein), culture (including aerobic, anaerobic, fungal, and TB), and cytology. A 32-Malagasy right angle chest tube was placed along the diaphragm. The rectus abdominis fascia, subcutaneous tissue, and skin edges were reapproximated running Vicryl sutures. Steri-Strips and sterile dressings were applied. The patient was transferred to the PACU in satisfactory postoperative condition. There were no intraoperative complications, and instrument, needle, and sponge count were corrected at end of operation.
--- NOTE | 2017-12-01 10:49 | Anesthesia Evaluation Post Op ---
Date of Encounter: 12/01/17 Time of Encounter: 10:48 - Lungs Lungs: Clear Ascult./Percussion - Airway Airway: Non-obstructed - Cardiovascular Regular Rate, Baseline Rhythm - Mental Status Mental Status: Confused (baseline status, but able to communicate some needs) - Pain Pain Scale used: Unable to assess - Nausea Vomiting Nausea Vomiting: Not Present - Hydration Hydration: NPO - Discharge PostOp Status: Transfer Patient to floor
[2017-12-01] MEDS: Levothyroxine 25 MCG TABLET PO SCH (10:51)
[2017-12-01] MEDS: Sulfamethoxazole/Trimeth DS 1 EACH TABLET PO SCH ×2 (12:00→20:53)
[2017-12-01] MEDS: Loratadine 10 MG TABLET PO SCH (12:00)
[2017-12-01] MEDS: Ringers Solution, Lactated 1,000 ML IVC SCH (12:00)
--- NOTE | 2017-12-01 12:20 | Internal Med Progress Note ---
Hospitalist Progress Note - Encounter Date of Encounter: 12/01/17 Time of Encounter: 11:00 - Subjective Interval History: Patient returned from pericardial window. She tolerated procedure well. She has two caretakers of hers present at bedside. Patient appears to be in pain and also agitated. She has attempted to pull at drain and also IV site. - Exam Vitals: Temp Pulse Resp BP Pulse Ox 97.8 F 108 16 137/85 93 12/01/17 10:45 12/01/17 10:45 12/01/17 10:45 12/01/17 10:45 12/01/17 10:45 Exam: General: NAD Cardiac: RRR, no murmur, rubs or gallops Chest: pericardial drain with serosanguinous fluid PulmonaryL Clear to auscultation bilaterally, no rales, rhonchi, or wheezing Abdomen: soft, non-tender, no gaurding or rigidity, normoactive bowel sounds Extremities: no pedal edema. Right small toe has a small wound on it Psych: MRDD, responds to some commands, cooperative with exam but does have pain and occasional agitation. - Assessment and Plan (1) Bacteremia Current Visit: Yes Status: Acute Assessment and Plan: Due to UTI repeat blood cx no growth cont Bactrim (2) UTI (urinary tract infection) Current Visit: Yes Status: Acute Assessment and Plan: Urine cx - Proteus Finished 7 days Zosyn Plan is to completed course of Bactrim. Monitor renal function. (3) Encephalopathy Current Visit: Yes Status: Resolved Assessment and Plan: Toxic encephalopathy with UTI / Sepsis Physical deconditioning PT / OT recommend ECF placement. Will talk to caregivers Patient improved with treatment. (4) Kidney stone Current Visit: Yes Status: Acute Assessment and Plan: Right renal calculi - 1.4 cm ureteropelvic junction stone on the right side s/p Rt ureter stent placement on 11/15/[address] Myrick talked to Urology Dr. Funes, who do not recommend an invasive procedures now. Need to f/u with them as an out pt However since pt still c/o flank pain ordered stat CT of abd / pelvis which showed 1.4 cm ureteropelvic junction stone on the right side. Rt ureter stent, also noticed moderate hydronephrosis Urology was consulted and no further intervention needed currently. (5) S/P ureteral stent placement Current Visit: Yes Status: Acute Assessment and Plan: Stable. (6) DVT prophylaxis Current Visit: Yes Status: Acute Assessment and Plan: SQ Heparin (7) Bipolar disorder Current Visit: No Status: Chronic Assessment and Plan: Continue home psych meds (8) Hypothyroidism Current Visit: Yes Status: Chronic Assessment and Plan: TSH within normal limits at [facility] Continue Levothyroxine (9) Pericardial effusion Current Visit: Yes Status: Acute Assessment and Plan: 2 D Echo showed large pericardial effusion POD #0 s/p pericardial window with 200 ml fluid drained. Sent for analysis. Stable Management per Cardiothoracic Surg - Time Spent with Patient Total time spent is greater than 50% in coordination of care (as documented) at patient's floor/unit and/or counseling patient: Internal Medicine: Result - Labs CBC & Chem 7: 12/01/17 04:08 12/01/17 04:08 Labs: Short CBC 12/01/17 Range/Units 04:08 WBC 7.6 (4.3-11.1) K/mcL Hgb 11.5 (11.5-15.4) g/dL Hct 34.8 L (35.3-44.9) % Plt Count 299 (140-400) K/mcL Neutrophils # 4.8 (1.6-8.9) K/mcL BMP 12/01/17 04:08 Sodium 139 Potassium 3.6 Chloride 105 Carbon Dioxide 28 BUN 22 H Creatinine 1.27 H Glucose 96 Calcium 9.3 Liver Function 12/01/17 Range/Units 04:08 Total Bilirubin 0.3 (0.3-1.0) mg/dL AST 20 (13-39) Units/L ALT 21 (7-52) Units/L Alkaline Phosphatase 67 (34-104) Units/L Albumin 3.4 L (3.5-5.7) g/dL - ABG Interpretation ABG results: PT/INR, D-dimer PT 10.7 Seconds (9.4-12.1) 11/29/17 15:38 Consult Discharge Plan - Plan Referrals: Christiano Bull MD [Primary Care Provider] - ___ (2) UTI (urinary tract infection) Qualifiers: Urinary tract infection type: acute cystitis Hematuria presence: with hematuria Qualified Code(s): N30.01 - Acute cystitis with hematuria (7) Bipolar disorder Qualifiers: Active/Remission status: remission status unspecified Qualified Code(s): F31.9 - Bipolar disorder, unspecified (8) Hypothyroidism Qualifiers: Hypothyroidism type: acquired Qualified Code(s): E03.9 - Hypothyroidism, unspecified
[2017-12-01] MEDS: OXYCODONE Oral CONC 10 MG/0.5 ML ORAL.SYG SL PRN ×2 (12:44→17:39)
[2017-12-01] MEDS: Nystatin Cream 15 GM TUBE TP SCH ×2 (12:45→20:56)
[2017-12-01] MEDS: ceFAZolin 1,000 MG in Water for inj. (sterile) 20 ML 10 ML IVP SCH (17:40)
[2017-12-01 19:37] LABS: Appearance of Pericardial Fl Clear (Clear)
[2017-12-02] MEDS: ceFAZolin 1,000 MG in Water for inj. (sterile) 20 ML 10 ML IVP SCH (00:25)
[2017-12-02] MEDS: OXYCODONE Oral CONC 10 MG/0.5 ML ORAL.SYG SL PRN ×4 (01:14→21:14)
[2017-12-02] MEDS: *HR* LORazepam 2 MG/ML VIAL IVP PRN ×2 (01:31→09:21)
[2017-12-02 04:26] LABS: Basophils % 0.2 %; Eosinophils # 0.1 K/mcL (0.0-0.6); Eosinophils % 0.5 %; Hematocrit 36.1 % (35.3-44.9); Hemoglobin 11.6 g/dL (11.5-15.4); Immature Granulocytes % 0.6 % (0-4); Lymphocytes # 1.2 K/mcL (0.6-4.6); Lymphocytes % 10.1 %; Mean Corpuscular HGB Conc 32.1 g/dL (31.6-35.5); Mean Corpuscular Hemoglobin 31.9 pg (28.0-33.3); Mean Corpuscular Volume 99.2 fL (83.0-100.0); Monocytes # 0.8 K/mcL (0.0-1.3); Monocytes % 6.4 %; Neutrophils # 10.1 K/mcL (1.6-8.9); Platelet Count 305 K/mcL (140-400); Red Blood Count 3.64 M/mcL (3.82-4.97); Red Cell Distribution Width 13.8 % (11.5-14.5); Segmented Neutrophils % 82.2 %
[2017-12-02 04:43] LABS: Calcium 9.1 mg/dL (8.6-10.3); Potassium 3.5 mEq/L (3.5-5.1)
[2017-12-02] MEDS: *HR* Heparin 5,000 UNIT/ML VIAL SQ SCH ×2 (05:57→17:38)
[2017-12-02] MEDS: Levothyroxine 25 MCG TABLET PO SCH (05:57)
[2017-12-02] MEDS: Sulfamethoxazole/Trimeth DS 1 EACH TABLET PO SCH ×2 (09:02→21:10)
[2017-12-02] MEDS: Loratadine 10 MG TABLET PO SCH (09:02)
[2017-12-02] MEDS: Nystatin Cream 15 GM TUBE TP SCH ×2 (09:06→23:24)
[2017-12-02] MEDS ORDERED: *HR* LORazepam 2 MG/ML VIAL IVP ONE (09:41)
[2017-12-02] MEDS: Acetaminophen 325 MG TABLET PO PRN (09:59)
--- NOTE | 2017-12-02 10:49 | Cardiothoracic Progress Note ---
Date of Encounter: 12/02/17 Time of Encounter: 07:55 - Assessment and plan (1) Pericardial effusion Current Visit: Yes Status: Acute The patient is recovering well from her subxiphoid pericardial window. The culture results and cytology results are pending at this time. She has had approximately 200 mL of chest tube drainage since operation. The chest tube should remain to suction for 2-3 more days. The assessment and plan as outlined above was discussed with the patient and/or family members who expressed understanding and agreement. All questions were answered. - Subjective Procedure(s) Performed: POD#1 S/P Subxiphoid pericardial window Interval history: The patient remained hemodynamically stable overnight. She is resting comfortably in her hospital bed and has no apparent complaints. Oxgyen Flow Rate Oxygen Flow Rate (LPM) 2 Clinical Data, last 8 Hours Output, Chest Tube Drainage 42 Amount [Right Upper Anterior Chest #1] Weight 11/30/17 12/01/17 12/02/17 23:59 23:59 23:59 Weight 88.1 kg 88 kg - Physical Examination General: Conversant, No Apparent Distress Neck: No JVD, Normal carotid pulses Cardiac: Reg Rate and Rhythm, Normal S1 and S2, No Murmur Incision: No signs of infection, Dry/intact dressing Chest tubes: Minimal drainage, Other (No air leak.) Lungs: Normal Breath Sounds, No Wheeze, Rales, Rhonchi Neuro: Alert and responsive, No focal deficits noted Vascular: Normal capillary refill Extremities: No Clubbing, No Cyanosis, No Edema - Labs 12/02/17 03:07 12/02/17 03:07 Lab Results, Last 24 hours 12/02/17 12/02/17 03:07 03:07 WBC 12.3 H D Hgb 11.6 Hct 36.1 Plt Count 305 Sodium 139 Potassium 3.5 Chloride 105 Carbon Dioxide 24 BUN 27 H Creatinine 1.25 H Glucose 127 H Calcium 9.1 - Imaging Chest Xray: image reviewed (No pneumothorax.) Consult Discharge Plan - Plan Referrals: Christiano Bull MD [Primary Care Provider] -
--- NOTE | 2017-12-02 10:57 | Internal Med Progress Note ---
<Fariba Zamora E - Last Filed: 12/02/17 14:33> Hospitalist Progress Note - Encounter Date of Encounter: 12/02/17 Time of Encounter: 09:30 - Subjective Interval History: Ms. Cowan was seen at bedside today and examined. She was very agitated, actively trying to take out her chest tube, writhing in bed, saying she did not feel well and her chest and stomach hurt. Patient is being transfered to ICU1 as a 2N overflow for level of care. - Exam Vitals: Temp Pulse Resp BP Pulse Ox 98.5 F 80 16 104/64 92 12/02/17 04:57 12/02/17 04:57 12/02/17 04:57 12/02/17 04:57 12/02/17 04:57 Exam: General: NAD Cardiac: RRR, no murmur, rubs or gallops Chest: pericardial drain with serosanguinous fluid PulmonaryL Clear to auscultation bilaterally, no rales, rhonchi, or wheezing Abdomen: soft, non-tender, rigid due to patient movement Extremities: no pedal edema. Right small toe has a small wound on it Psych: MRDD, responds to some commands, not cooperative with exam due to agitation and pain - Assessment and Plan (1) UTI (urinary tract infection) Current Visit: Yes Status: Acute Assessment and Plan: Urine culture grew Proteus Continue Bactrim through 12/04 Monitor renal function (2) Pericardial effusion Current Visit: Yes Status: Acute Assessment and Plan: Post op day #1 pericardial window Pericardial drain drining serosangiunous fluid with some fibrinous material Cardiothoracics woudl like this drain to stay in place for 2-3 days (3) Bacteremia Current Visit: Yes Status: Acute Assessment and Plan: Will continue Bactrim for Proteus infection,will continue until December 04. (4) Kidney stone Current Visit: Yes Status: Acute Assessment and Plan: Right renal calculi 1/4 cm at ureteropelvic junction on the right side. S/P rt ureteral stent placement on 11/[address] Funes does not recommend any invasive procedures at this time, will follow as an outpatient flomax to help with ureteral stent irritation (5) S/P ureteral stent placement Current Visit: Yes Status: Acute Assessment and Plan: see above (6) Hypothyroidism Current Visit: Yes Status: Chronic Assessment and Plan: continue levothyroxine home dose (7) Encephalopathy Current Visit: Yes Status: Resolved Assessment and Plan: Patient back to baseline as per caregivers (8) Bipolar disorder Current Visit: No Status: Chronic Assessment and Plan: continue hoe psych meds DVT Prophylaxis: SubQ heparin - Time Spent with Patient Total time spent is greater than 50% in coordination of care (as documented) at patient's floor/unit and/or counseling patient: Internal Medicine: Result - Labs CBC & Chem 7: 12/02/17 03:07 12/02/17 03:07 Labs: Short CBC 12/02/17 Range/Units 03:07 WBC 12.3 H D (4.3-11.1) K/mcL Hgb 11.6 (11.5-15.4) g/dL Hct 36.1 (35.3-44.9) % Plt Count 305 (140-400) K/mcL Neutrophils # 10.1 H (1.6-8.9) K/mcL BMP 12/02/17 03:07 Sodium 139 Potassium 3.5 Chloride 105 Carbon Dioxide 24 BUN 27 H Creatinine 1.25 H Glucose 127 H Calcium 9.1 - ABG Interpretation ABG results: PT/INR, D-dimer PT 10.7 Seconds (9.4-12.1) 11/29/17 15:38 - Impressions Impressions Chest X-Ray 12/02/17 06:00 IMPRESSION: Findings suggesting pericardial effusion. Left chest tube. No pneumothorax. D/ / 12/02/2017 07:55:21 Blade Rome MD / amrita Interpreting Provider: Blade Rome MD Consult Discharge Plan - Plan Referrals: Christiano Bull MD [Primary Care Provider] - <Deepak Titus - Last Filed: 12/02/17 16:38> Hospitalist Progress Note - Exam Vitals: Temp Pulse Resp BP Pulse Ox 97.8 F 106 20 95/52 93 12/02/17 13:00 12/02/17 15:17 12/02/17 13:53 12/02/17 13:53 12/02/17 13:53 - Assessment and Plan (1) Bacteremia Current Visit: Yes Status: Acute (2) UTI (urinary tract infection) Current Visit: Yes Status: Acute (3) Encephalopathy Current Visit: Yes Status: Resolved (4) Kidney stone Current Visit: Yes Status: Acute (5) S/P ureteral stent placement Current Visit: Yes Status: Acute (6) DVT prophylaxis Current Visit: Yes Status: Acute (7) Bipolar disorder Current Visit: No Status: Chronic (8) Hypothyroidism Current Visit: Yes Status: Chronic (9) Pericardial effusion Current Visit: Yes Status: Acute - Time Spent with Patient Total time spent is greater than 50% in coordination of care (as documented) at patient's floor/unit and/or counseling patient: Internal Medicine: Result - Labs CBC & Chem 7: 12/02/17 03:07 12/02/17 03:07 Labs: Short CBC 12/02/17 Range/Units 03:07 WBC 12.3 H D (4.3-11.1) K/mcL Hgb 11.6 (11.5-15.4) g/dL Hct 36.1 (35.3-44.9) % Plt Count 305 (140-400) K/mcL Neutrophils # 10.1 H (1.6-8.9) K/mcL BMP 12/02/17 03:07 Sodium 139 Potassium 3.5 Chloride 105 Carbon Dioxide 24 BUN 27 H Creatinine 1.25 H Glucose 127 H Calcium 9.1 - ABG Interpretation ABG results: PT/INR, D-dimer PT 10.7 Seconds (9.4-12.1) 11/29/17 15:38 - Impressions Impressions Chest X-Ray 12/02/17 06:00 IMPRESSION: Findings suggesting pericardial effusion. Left chest tube. No pneumothorax. D/ / 12/02/2017 07:55:21 Blade Rome MD / amrita Interpreting Provider: Blade Rome MD - Attending Attestation I examined this patient and my medical decision-making was reviewed with the Resident Physician. I agree with the documented findings, disposition and treatment plan as described except to the extent set forth below. <Fariba Zamora - Last Filed: 12/02/17 14:33> (1) UTI (urinary tract infection) Qualifiers: Urinary tract infection type: acute cystitis Hematuria presence: with hematuria Qualified Code(s): N30.01 - Acute cystitis with hematuria (6) Hypothyroidism Qualifiers: Hypothyroidism type: acquired Qualified Code(s): E03.9 - Hypothyroidism, unspecified (8) Bipolar disorder Qualifiers: Active/Remission status: remission status unspecified Qualified Code(s): F31.9 - Bipolar disorder, unspecified <Deepak Titus - Last Filed: 12/02/17 16:38> (2) UTI (urinary tract infection) Qualifiers: Urinary tract infection type: acute cystitis Hematuria presence: with hematuria Qualified Code(s): N30.01 - Acute cystitis with hematuria (7) Bipolar disorder Qualifiers: Active/Remission status: remission status unspecified Qualified Code(s): F31.9 - Bipolar disorder, unspecified (8) Hypothyroidism Qualifiers: Hypothyroidism type: acquired Qualified Code(s): E03.9 - Hypothyroidism, unspecified
[2017-12-02] MEDS: Ringers Solution, Lactated 1,000 ML IVC SCH (14:16)
[2017-12-02] MEDS: Acetaminophen 325 MG TABLET PO SCH ×3 (14:16→23:29)
[2017-12-02] MEDS: *HR* FentaNYL (PF) 100 MCG/2 ML VIAL IVP PRN ×2 (15:07→18:20)
[2017-12-03 04:44] LABS: Basophils % 0.5 %; Eosinophils # 0.1 K/mcL (0.0-0.6); Eosinophils % 1.5 %; Hematocrit 34.2 % (35.3-44.9); Hemoglobin 11.3 g/dL (11.5-15.4); Immature Granulocytes % 0.7 % (0-4); Lymphocytes # 1.4 K/mcL (0.6-4.6); Lymphocytes % 19.2 %; Mean Corpuscular Hemoglobin 32.4 pg (28.0-33.3); Mean Platelet Volume 9.9 fL (9.4-12.4); Monocytes # 0.6 K/mcL (0.0-1.3); Monocytes % 7.8 %; Neutrophils # 5.2 K/mcL (1.6-8.9); Platelet Count 289 K/mcL (140-400); Red Blood Count 3.49 M/mcL (3.82-4.97); Red Cell Distribution Width 14.2 % (11.5-14.5); Segmented Neutrophils % 70.3 %
[2017-12-03 05:04] LABS: BUN/Creatinine Ratio 21 (6-26); Blood Urea Nitrogen 23 mg/dL (6-20); Calcium 9.1 mg/dL (8.6-10.3); Carbon Dioxide 26 mEq/L (23-29); Chloride 105 mEq/L (98-107); Glucose 95 mg/dL (70-105); Osmolality,Calculated 289 (280-300); Potassium 4.1 mEq/L (3.5-5.1); Sodium 138 mEq/L (136-145); eGFR For Non-African Americans 54 (> 60)
[2017-12-03] MEDS: Levothyroxine 25 MCG TABLET PO SCH (05:42)
[2017-12-03] MEDS: Acetaminophen 325 MG TABLET PO SCH (05:42)
[2017-12-03] MEDS: *HR* Heparin 5,000 UNIT/ML VIAL SQ SCH ×2 (05:44→18:57)
--- NOTE | 2017-12-03 07:51 | Cardiothoracic Progress Note ---
Date of Encounter: 12/03/17 Time of Encounter: 07:50 - Assessment and plan (1) Pericardial effusion Current Visit: Yes Status: Acute The patient is recovering well from her subxiphoid pericardial window. The culture results are pending and cytology results are negative for malignancy. She has had approximately 100 mL of chest tube drainage during the last 24 hours. The chest tube should remain to suction for 2-3 more days. The assessment and plan as outlined above was discussed with the patient and/or family members who expressed understanding and agreement. All questions were answered. - Subjective Procedure(s) Performed: POD#2 S/P Subxiphoid pericardial window Interval history: The patient remained hemodynamically stable overnight. She is resting comfortably in her hospital bed and has no apparent complaints. Vital Signs, Last 4 Hours Temp Pulse Resp BP Pulse Ox 12/03/17 07:29 98.9 F 90 17 118/75 94 Oxgyen Flow Rate Oxygen Flow Rate (LPM) 3 Weight 12/01/17 12/02/17 12/03/17 23:59 23:59 23:59 Weight 88 kg 87.9 kg - Physical Examination General: No Apparent Distress Cardiac: Reg Rate and Rhythm, Normal S1 and S2, No Murmur Incision: No signs of infection, Dry/intact dressing Chest tubes: Minimal drainage, Other (No air leak) Lungs: Normal Breath Sounds, No Wheeze, Rales, Rhonchi Neuro: Alert and responsive, No focal deficits noted Vascular: Normal capillary refill Musculoskeletal: No Chest Wall Tenderness Extremities: No Clubbing, No Cyanosis, No Edema - Labs 12/03/17 03:55 12/03/17 03:55 Lab Results, Last 24 hours 12/03/17 12/03/17 03:55 03:55 WBC 7.5 Hgb 11.3 L Hct 34.2 L Plt Count 289 Sodium 138 Potassium 4.1 Chloride 105 Carbon Dioxide 26 BUN 23 H Creatinine 1.10 Glucose 95 Calcium 9.1 Consult Discharge Plan - Plan Referrals: Christiano Bull MD [Primary Care Provider] -
[2017-12-03] MEDS ORDERED: *HR* LORazepam Oral Conc 2 MG/ML SL ONE (09:45)
[2017-12-03] MEDS: OXYCODONE Oral CONC 10 MG/0.5 ML ORAL.SYG SL PRN (10:01)
[2017-12-03] MEDS ORDERED: Ziprasidone injection 20 MG/ML VIAL IM STA (10:12)
[2017-12-03] MEDS: Sulfamethoxazole/Trimeth DS 1 EACH TABLET PO SCH ×2 (10:40→20:15)
[2017-12-03] MEDS: Loratadine 10 MG TABLET PO SCH (10:41)
[2017-12-03] MEDS: Nystatin Cream 15 GM TUBE TP SCH ×2 (11:32→20:26)
[2017-12-03] MEDS: Dexmedetomidine HCl 400 MCG/100 ML MLS IVC SCH (11:42)
[2017-12-03] MEDS: Ringers Solution, Lactated 1,000 ML IVC SCH (13:19)
--- NOTE | 2017-12-03 19:23 | Internal Med Progress Note ---
<Fariba Zamora E - Last Filed: 12/03/17 15:06> Hospitalist Progress Note - Encounter Date of Encounter: 12/03/17 Time of Encounter: 09:00 - Subjective Interval History: Ms. Cowan was seen at bedside today and examined. She was very agitated, actively trying to take out her chest tube, writhing in bed, saying she did not feel well and her chest and stomach hurt. Patient is being transfered to ICU1 as a 2N overflow for level of care. - Exam Vitals: Temp Pulse Resp BP Pulse Ox 98.2 F 106 18 94/65 92 12/03/17 11:59 12/03/17 14:15 12/03/17 14:15 12/03/17 14:15 12/03/17 14:15 Exam: General: awake, in distress had just pulled her chest tube herself along with venous access. Cardiac: RRR, no murmur, rubs or gallops Chest: area where chest tube had been covered in sterile dressing, some serosanguinous fluid noted on gauze. PulmonaryL Clear to auscultation bilaterally, no rales, rhonchi, or wheezing Abdomen: soft, non-tender, rigid due to patient movement Extremities: no pedal edema. Right small toe has a small wound on it Psych: MRDD, responds to some commands, not cooperative with exam due to agitation and pain - Assessment and Plan (1) UTI (urinary tract infection) Current Visit: Yes Status: Acute Assessment and Plan: Urine culture grew Proteus Continue Bactrim through 12/04 Monitor renal function (2) Pericardial effusion Current Visit: Yes Status: Acute Assessment and Plan: Post op day #2 pericardial window Pericardial drain drining serosangiunous fluid before patient removed it. Cardiothoracics does not want to replace this at this time. (3) Bacteremia Current Visit: Yes Status: Acute Assessment and Plan: Will continue Bactrim for Proteus infection,will continue until December 04. (4) Kidney stone Current Visit: Yes Status: Acute Assessment and Plan: Right renal calculi 1/4 cm at ureteropelvic junction on the right side. S/P rt ureteral stent placement on 11/[address] Funes does not recommend any invasive procedures at this time, will follow as an outpatient flomax to help with ureteral stent irritation (5) S/P ureteral stent placement Current Visit: Yes Status: Acute Assessment and Plan: see above (6) Hypothyroidism Current Visit: Yes Status: Chronic Assessment and Plan: continue levothyroxine home dose (7) Encephalopathy Current Visit: Yes Status: Resolved Assessment and Plan: Patient is aggretated but encephalopathy seems to ahve resolved at this time. Aggrevation probably due to pain. (8) Bipolar disorder Current Visit: No Status: Chronic Assessment and Plan: continue home psych meds (9) Agitation Current Visit: Yes Status: Acute Assessment and Plan: Patient was agitated by pain and that she could not understand what was going on She pulled her pericardial drain and IV access. She was given sublingual adavan Started on pressidex drip to Rizzo score 2 Geodon was also given prior to IV access being restarted. DVT Prophylaxis: sub q heparin - Time Spent with Patient Total time spent is greater than 50% in coordination of care (as documented) at patient's floor/unit and/or counseling patient: Internal Medicine: Result - Labs CBC & Chem 7: 12/03/17 03:55 12/03/17 03:55 Labs: Short CBC 12/03/17 Range/Units 03:55 WBC 7.5 (4.3-11.1) K/mcL Hgb 11.3 L (11.5-15.4) g/dL Hct 34.2 L (35.3-44.9) % Plt Count 289 (140-400) K/mcL Neutrophils # 5.2 (1.6-8.9) K/mcL BMP 12/03/17 03:55 Sodium 138 Potassium 4.1 Chloride 105 Carbon Dioxide 26 BUN 23 H Creatinine 1.10 Glucose 95 Calcium 9.1 - ABG Interpretation ABG results: PT/INR, D-dimer PT 10.7 Seconds (9.4-12.1) 11/29/17 15:38 Consult Discharge Plan - Plan Referrals: Christiano Bull MD [Primary Care Provider] - <Deepak Titus - Last Filed: 12/03/17 17:48> Hospitalist Progress Note - Exam Vitals: Temp Pulse Resp BP Pulse Ox 98.3 F 98 20 116/71 95 12/03/17 16:32 12/03/17 16:32 12/03/17 17:16 12/03/17 17:16 12/03/17 17:16 - Assessment and Plan (1) Bacteremia Current Visit: Yes Status: Acute (2) UTI (urinary tract infection) Current Visit: Yes Status: Acute (3) Encephalopathy Current Visit: Yes Status: Resolved (4) Kidney stone Current Visit: Yes Status: Acute (5) S/P ureteral stent placement Current Visit: Yes Status: Acute (6) DVT prophylaxis Current Visit: Yes Status: Acute (7) Bipolar disorder Current Visit: No Status: Chronic (8) Hypothyroidism Current Visit: Yes Status: Chronic (9) Pericardial effusion Current Visit: Yes Status: Acute - Time Spent with Patient Total time spent is greater than 50% in coordination of care (as documented) at patient's floor/unit and/or counseling patient: Internal Medicine: Result - Labs CBC & Chem 7: 12/03/17 03:55 12/03/17 03:55 Labs: Short CBC 12/03/17 Range/Units 03:55 WBC 7.5 (4.3-11.1) K/mcL Hgb 11.3 L (11.5-15.4) g/dL Hct 34.2 L (35.3-44.9) % Plt Count 289 (140-400) K/mcL Neutrophils # 5.2 (1.6-8.9) K/mcL BMP 12/03/17 03:55 Sodium 138 Potassium 4.1 Chloride 105 Carbon Dioxide 26 BUN 23 H Creatinine 1.10 Glucose 95 Calcium 9.1 - ABG Interpretation ABG results: PT/INR, D-dimer PT 10.7 Seconds (9.4-12.1) 11/29/17 15:38 - Attending Attestation I examined this patient and my medical decision-making was reviewed with the Resident Physician. I agree with the documented findings, disposition and treatment plan as described except to the extent set forth below. Despite having a sitter, patient pulled out both chest tube and IV access this morning. She was extremely agitated and required Ativan. She was then placed on a Precedex drip to reduce agitation. Cardiothoracics was notified of the pulled chest tube. She displays no acute respiratory distress. Patient is being monitored closely given these circumstances. <Fariba Zamora Geoff - Last Filed: 12/03/17 15:06> (1) UTI (urinary tract infection) Qualifiers: Urinary tract infection type: acute cystitis Hematuria presence: with hematuria Qualified Code(s): N30.01 - Acute cystitis with hematuria (6) Hypothyroidism Qualifiers: Hypothyroidism type: acquired Qualified Code(s): E03.9 - Hypothyroidism, unspecified (8) Bipolar disorder Qualifiers: Active/Remission status: remission status unspecified Qualified Code(s): F31.9 - Bipolar disorder, unspecified <Deepak Titus - Last Filed: 12/03/17 17:48> (2) UTI (urinary tract infection) Qualifiers: Urinary tract infection type: acute cystitis Hematuria presence: with hematuria Qualified Code(s): N30.01 - Acute cystitis with hematuria (7) Bipolar disorder Qualifiers: Active/Remission status: remission status unspecified Qualified Code(s): F31.9 - Bipolar disorder, unspecified (8) Hypothyroidism Qualifiers: Hypothyroidism type: acquired Qualified Code(s): E03.9 - Hypothyroidism, unspecified
[2017-12-04 04:15] LABS: Basophils % 0.6 %; Eosinophils # 0.2 K/mcL (0.0-0.6); Eosinophils % 2.8 %; Hematocrit 33.3 % (35.3-44.9); Hemoglobin 10.9 g/dL (11.5-15.4); Immature Granulocytes % 0.9 % (0-4); Lymphocytes # 1.8 K/mcL (0.6-4.6); Mean Corpuscular HGB Conc 32.7 g/dL (31.6-35.5); Mean Corpuscular Hemoglobin 32.5 pg (28.0-33.3); Mean Corpuscular Volume 99.4 fL (83.0-100.0); Mean Platelet Volume 9.4 fL (9.4-12.4); Monocytes # 0.5 K/mcL (0.0-1.3); Monocytes % 8.5 %; Neutrophils # 3.8 K/mcL (1.6-8.9); Platelet Count 282 K/mcL (140-400); Red Blood Count 3.35 M/mcL (3.82-4.97); Red Cell Distribution Width 14.1 % (11.5-14.5); Segmented Neutrophils % 59.2 %
[2017-12-04 04:37] LABS: BUN/Creatinine Ratio 18 (6-26); Blood Urea Nitrogen 19 mg/dL (6-20); Calcium 9.1 mg/dL (8.6-10.3); Carbon Dioxide 26 mEq/L (23-29); Chloride 110 mEq/L (98-107); Glucose 103 mg/dL (70-105); Osmolality,Calculated 297 (280-300); Potassium 4.1 mEq/L (3.5-5.1); Sodium 142 mEq/L (136-145); eGFR For Non-African Americans 56 (> 60)
[2017-12-04] MEDS: Levothyroxine 25 MCG TABLET PO SCH (06:15)
[2017-12-04] MEDS: *HR* Heparin 5,000 UNIT/ML VIAL SQ SCH ×2 (06:15→17:30)
[2017-12-04] MEDS: *HR* FentaNYL (PF) 100 MCG/2 ML VIAL IVP PRN ×5 (06:24→20:51)
--- NOTE | 2017-12-04 09:28 | Internal Med Progress Note ---
Hospitalist Progress Note - Encounter Date of Encounter: 12/04/17 Time of Encounter: 15:01 - Subjective Interval History: Patient had pericardial window on 12/01. She tolerated procedure well. However, she had episode of agitation on 12/02 and despite having sitter at bedside, patient ripped out her chest tube and IV line. She required sL Ativan for agitation and then required repeat IV access followed by a Precedex. She has remained hemodynamically stable after she removed the chest tube. She currently is in no acute distress.Nursing in the morning reports that her appetite is poor and she did not eat much of her breakfast. - Exam Vitals: Temp Pulse Resp BP Pulse Ox 97.5 F L 58 16 114/67 96 12/04/17 07:00 12/04/17 08:00 12/04/17 09:00 12/04/17 09:00 12/04/17 09:00 Exam: General: awake, breathing spontaneously Cardiac: RRR, no murmur, rubs or gallops Chest: area where chest tube had been covered in sterile dressing, clean. Pulmonary: CTAB, no w/r/r Abdomen: soft, non-tender, non-distended Extremities: no pedal edema. Right small toe has a small wound on it Psych: MRDD, limited exam due to patient's potential for acute agitative episodes. - Assessment and Plan (1) Pericardial effusion Current Visit: Yes Status: Acute Assessment and Plan: 2 D Echo showed large pericardial effusion POD #3 s/p pericardial window with 200 ml fluid drained. Sent for analysis. Management per Cardiothoracic Surg Appreciate recommendations as patient has pulled out chest tube yesterday. (2) Bacteremia Current Visit: Yes Status: Acute Assessment and Plan: Due to UTI repeat blood cx no growth Bactrim to finish today She is now stable from an infectious standpoint but she is status post pericardial window on 12/01 and she removed her chest tube yesterday. (3) UTI (urinary tract infection) Current Visit: Yes Status: Acute Assessment and Plan: Urine cx - Proteus Finished 7 days Zosyn Finished 7 days Bactrim (4) Encephalopathy Current Visit: Yes Status: Resolved Assessment and Plan: Toxic encephalopathy with UTI / Sepsis Physical deconditioning PT / OT recommend ECF placement. Patient improved with treatment. (5) Kidney stone Current Visit: Yes Status: Acute Assessment and Plan: Right renal calculi - 1.4 cm ureteropelvic junction stone on the right side s/p Rt ureter stent placement on 11/15/[address] Myrick talked to Urology Dr. Funes, who do not recommend an invasive procedures now. Need to f/u with them as an out pt However since pt still c/o flank pain ordered stat CT of abd / pelvis which showed 1.4 cm ureteropelvic junction stone on the right side. Rt ureter stent, also noticed moderate hydronephrosis Urology was consulted and no further intervention needed currently. (6) S/P ureteral stent placement Current Visit: Yes Status: Acute Assessment and Plan: Stable. (7) DVT prophylaxis Current Visit: Yes Status: Acute Assessment and Plan: SQ Heparin (8) Bipolar disorder Current Visit: No Status: Chronic Assessment and Plan: Continue home psych meds (9) Hypothyroidism Current Visit: Yes Status: Chronic Assessment and Plan: TSH within normal limits at [place] Continue Levothyroxine - Summary of Assessment and Plan Summary of Assessment and Plan: She is stable from an infectious standpoint and encephalopathy standpoint. However she had pericardial window and ripped out chest tube yesterday. Appreciate Cardiothoracic recs on this issue. PT/OT recs SNF - Time Spent with Patient Total time spent is greater than 50% in coordination of care (as documented) at patient's floor/unit and/or counseling patient: Internal Medicine: Result - Labs CBC & Chem 7: 12/04/17 03:57 12/04/17 03:57 Labs: Short CBC 12/04/17 Range/Units 03:57 WBC 6.4 (4.3-11.1) K/mcL Hgb 10.9 L (11.5-15.4) g/dL Hct 33.3 L (35.3-44.9) % Plt Count 282 (140-400) K/mcL Neutrophils # 3.8 (1.6-8.9) K/mcL BMP 12/04/17 03:57 Sodium 142 Potassium 4.1 Chloride 110 H Carbon Dioxide 26 BUN 19 Creatinine 1.07 Glucose 103 Calcium 9.1 - ABG Interpretation ABG results: PT/INR, D-dimer PT 10.7 Seconds (9.4-12.1) 11/29/17 15:38 Consult Discharge Plan - Plan Referrals: Christiano Bull MD [Primary Care Provider] - (3) UTI (urinary tract infection) Qualifiers: Urinary tract infection type: acute cystitis Hematuria presence: with hematuria Qualified Code(s): N30.01 - Acute cystitis with hematuria (8) Bipolar disorder Qualifiers: Active/Remission status: remission status unspecified Qualified Code(s): F31.9 - Bipolar disorder, unspecified (9) Hypothyroidism Qualifiers: Hypothyroidism type: acquired Qualified Code(s): E03.9 - Hypothyroidism, unspecified
[2017-12-04] MEDS: Dexmedetomidine HCl 400 MCG/100 ML MLS IVC SCH ×2 (09:29→19:56)
[2017-12-04] MEDS: Nystatin Cream 15 GM TUBE TP SCH ×2 (09:56→20:55)
[2017-12-04] MEDS: Loratadine 10 MG TABLET PO SCH (10:19)
[2017-12-04] MEDS: Sulfamethoxazole/Trimeth DS 1 EACH TABLET PO SCH ×2 (10:19→20:46)
[2017-12-04] MEDS: Acetaminophen 325 MG TABLET PO SCH (17:45)
[2017-12-04] MEDS: *HR* LORazepam 2 MG/ML VIAL IVP PRN (22:04)
[2017-12-05] MEDS: Acetaminophen 325 MG TABLET PO SCH ×4 (00:55→19:55)
[2017-12-05] MEDS: *HR* FentaNYL (PF) 100 MCG/2 ML VIAL IVP PRN ×2 (01:51→20:06)
[2017-12-05] MEDS ORDERED: 0.9 % Sodium Chloride 1,000 ML ONE (02:06)
[2017-12-05] MEDS: Dexmedetomidine HCl 400 MCG/100 ML MLS IVC SCH ×3 (03:09→20:44)
[2017-12-05] MEDS ORDERED: Haloperidol Lactate 5 MG/ML VIAL ONE (04:07)
[2017-12-05 05:13] LABS: BUN/Creatinine Ratio 16 (6-26); Blood Urea Nitrogen 16 mg/dL (6-20); Calcium 9.2 mg/dL (8.6-10.3); Carbon Dioxide 21 mEq/L (23-29); Chloride 109 mEq/L (98-107); Glucose 120 mg/dL (70-105); Osmolality,Calculated 292 (280-300); Potassium 4.1 mEq/L (3.5-5.1); Sodium 140 mEq/L (136-145); eGFR For Non-African Americans > 60 (> 60)
[2017-12-05] MEDS: *HR* Heparin 5,000 UNIT/ML VIAL SQ SCH ×2 (05:49→18:14)
[2017-12-05] MEDS: Levothyroxine 25 MCG TABLET PO SCH (05:54)
--- NOTE | 2017-12-05 08:13 | Internal Med Progress Note ---
Hospitalist Progress Note - Encounter Date of Encounter: 12/05/17 Time of Encounter: 09:00 - Subjective Interval History: Patient had pericardial window on 12/01. She tolerated procedure well. However, she had episode of agitation on 12/02 and despite having sitter at bedside, patient ripped out her chest tube and IV line. She required sL Ativan for agitation and then required repeat IV access followed by a Precedex. She has remained hemodynamically stable after she removed the chest tube. She currently is in no acute distress. Nursing attempting to wean Precedex again but patient started having agitation. - Exam Vitals: Temp Pulse Resp BP Pulse Ox 97.6 F 50 12 90/52 91 12/05/17 07:27 12/05/17 07:27 12/05/17 07:27 12/05/17 07:27 12/05/17 07:27 Exam: General: awake, breathing spontaneously Cardiac: RRR, no murmur, rubs or gallops Pulmonary: CTAB, no w/r/r Abdomen: soft, non-tender, non-distended Extremities: no pedal edema. Right small toe has a small wound on it Psych: MRDD, limited exam due to agitation - Assessment and Plan (1) Bacteremia Current Visit: Yes Status: Acute Assessment and Plan: Due to UTI repeat blood cx no growth ID was consulted She has completed 7 days of Zosyn and 7 days of Bactrim. She is now stable from an infectious standpoint but she is status post pericardial window on 12/01 PT/OT eval on 11/24 recommend SNF. Will need to contact [facility], I believe patient would benefit from placement. (2) Pericardial effusion Current Visit: Yes Status: Acute Assessment and Plan: 2 D Echo showed large pericardial effusion POD #4 s/p pericardial window with 200 ml fluid drained. Sent for analysis. Patient pulled out chest tube in agitation. Management per Cardiothoracic Surg (3) UTI (urinary tract infection) Current Visit: Yes Status: Acute Assessment and Plan: Urine cx - Proteus Finished 7 days Zosyn Finished 7 days Bactrim (4) Encephalopathy Current Visit: Yes Status: Resolved Assessment and Plan: Toxic encephalopathy with UTI / Sepsis (5) Kidney stone Current Visit: Yes Status: Acute Assessment and Plan: Right renal calculi - 1.4 cm ureteropelvic junction stone on the right side s/p Rt ureter stent placement on 11/15/[address] Myrick talked to Urology Dr. Funes, who do not recommend an invasive procedures now. Need to f/u with them as an out pt However since pt still c/o flank pain ordered stat CT of abd / pelvis which showed 1.4 cm ureteropelvic junction stone on the right side. Rt ureter stent, also noticed moderate hydronephrosis Urology was consulted and no further intervention needed currently. (6) S/P ureteral stent placement Current Visit: Yes Status: Acute Assessment and Plan: Stable. (7) DVT prophylaxis Current Visit: Yes Status: Acute Assessment and Plan: SQ Heparin (8) Bipolar disorder Current Visit: No Status: Chronic Assessment and Plan: Continue home psych meds (9) Hypothyroidism Current Visit: Yes Status: Chronic Assessment and Plan: TSH within normal limits at [place] Continue Levothyroxine DVT Prophylaxis: sub q heparin - Summary of Assessment and Plan Summary of Assessment and Plan: She is stable from an infectious standpoint and encephalopathy standpoint. However she had pericardial window and ripped out chest tube two days ago. Appreciate Cardiothoracic recs on this issue. -PT/OT recs SNF - see eval 11/24 - Time Spent with Patient Total time spent is greater than 50% in coordination of care (as documented) at patient's floor/unit and/or counseling patient: Internal Medicine: Result - Labs CBC & Chem 7: 12/04/17 03:57 12/05/17 04:34 Labs: BMP 12/05/17 04:34 Sodium 140 Potassium 4.1 Chloride 109 H Carbon Dioxide 21 L BUN 16 Creatinine 1.00 Glucose 120 H Calcium 9.2 - ABG Interpretation ABG results: PT/INR, D-dimer PT 10.7 Seconds (9.4-12.1) 11/29/17 15:38 Consult Discharge Plan - Plan Referrals: Christiano Bull MD [Primary Care Provider] - (3) UTI (urinary tract infection) Qualifiers: Urinary tract infection type: acute cystitis Hematuria presence: with hematuria Qualified Code(s): N30.01 - Acute cystitis with hematuria (8) Bipolar disorder Qualifiers: Active/Remission status: remission status unspecified Qualified Code(s): F31.9 - Bipolar disorder, unspecified (9) Hypothyroidism Qualifiers: Hypothyroidism type: acquired Qualified Code(s): E03.9 - Hypothyroidism, unspecified
[2017-12-05] MEDS: Loratadine 10 MG TABLET PO SCH (09:34)
[2017-12-05] MEDS: Nystatin Cream 15 GM TUBE TP SCH ×2 (09:46→20:43)
[2017-12-05] MEDS: *HR* LORazepam 2 MG/ML VIAL IVP PRN (14:31)
[2017-12-05] MEDS ORDERED: *HR* LORazepam 2 MG/ML VIAL IVP ONE ×2 (21:57)
[2017-12-05] MEDS ORDERED: *HR* LORazepam 2 MG/ML VIAL ONE (22:08)
[2017-12-06] MEDS: Acetaminophen 325 MG TABLET PO SCH ×5 (00:21→23:33)
[2017-12-06] MEDS: *HR* FentaNYL (PF) 100 MCG/2 ML VIAL IVP PRN ×2 (02:41→10:54)
[2017-12-06] MEDS: Dexmedetomidine HCl 400 MCG/100 ML MLS IVC SCH (04:13)
[2017-12-06] MEDS: Levothyroxine 25 MCG TABLET PO SCH (05:14)
[2017-12-06] MEDS: *HR* LORazepam 1 MG TABLET PO PRN ×2 (09:28→20:32)
[2017-12-06] MEDS: Loratadine 10 MG TABLET PO SCH (09:28)
[2017-12-06] MEDS: Nystatin Cream 15 GM TUBE TP SCH ×2 (09:30→20:36)
--- NOTE | 2017-12-06 10:17 | Internal Med Progress Note ---
<Jean Liz - Last Filed: 12/06/17 15:09> Hospitalist Progress Note - Encounter Date of Encounter: 12/06/17 Time of Encounter: 10:00 - Subjective Interval History: First seen this AM, patient agitated while being cleaned up in bed. Re-evaluated this afternoon. Patient seen and evaluated lying in bed. She currently is in no acute distress. Vitals stable. She is resting comfortably, No longer on Precedex drip. PNA/sitter denies any recent issues. - Exam Vitals: Temp Pulse Resp BP Pulse Ox 97.8 F 84 16 106/63 98 12/06/17 09:11 12/06/17 09:11 12/06/17 09:11 12/06/17 09:11 12/06/17 09:11 Exam: General: sleeping but easily arousable, breathing spontaneously Cardiac: RRR, no murmur, rubs or gallops Pulmonary: CTAB, no w/r/r Abdomen: +BS, soft, non-tender, non-distended Extremities: no pedal edema. Skin: warm, dry, intact Psych: MRDD, limited exam due to agitation when aroused. - Assessment and Plan (1) Agitation Current Visit: Yes Status: Acute Assessment and Plan: Patient pulled out chest tube, had tried to pull out peripheral line and scratch at chest tube site. Patient with 1:1 sitter, distraction techniques used as possible. Required multiple doses of Ativan and now on Precedex drip. Temporary use of restraints. Update: precedex stopped. Evaluation by psych completed, recommending PRN medications for agitation and aggression (ativan 2 mg IM Q6H PRN, Haloperidol 5 mg Q6h IM PRN and benadryl 50 mg IM Q6H PRN). Dispo: Possible discharge to ECF if able to wean from precedex drip for 24hrs and no longer needing sitter. PT/OT to re-evaluate for discharge. (2) Bacteremia Current Visit: Yes Status: Acute Assessment and Plan: Due to UTI repeat blood cx -no growth ID consulted- patient completed 7 days of zosyn and Bactrim. Stable from infectious standpoint. (3) Pericardial effusion Current Visit: Yes Status: Acute Assessment and Plan: Echo showing large pericardial effusion. POD#5 s/p pericardial window with 200ml fluid drained. Sent for analysis. Patient pulled out chest tube in agitation.- CT surg aware, continuing to monitor. Management per Cardiothoracic Surgery. (4) UTI (urinary tract infection) Current Visit: Yes Status: Acute Assessment and Plan: Urine cx - Proteus Finished 7 days Zosyn Finished 7 days Bactrim (5) Encephalopathy Current Visit: Yes Status: Resolved Assessment and Plan: Toxic encephalopathy with UTI/ Sepsis (6) Kidney stone Current Visit: Yes Status: Acute Assessment and Plan: Right renal calculi - 1.4 cm ureteropelvic junction stone on the right side s/p Rt ureter stent placement on 11/15/[address] Myrick talked to Urology Dr. Funes, who do not recommend an invasive procedures now. Need to f/u with them as an out pt Since pt was still c/o flank pain - stat CT of abd / pelvis showed 1.4 cm ureteropelvic junction stone on the right side. Rt ureter stent, also noticed moderate hydronephrosis Urology was consulted and no further intervention needed currently. (7) S/P ureteral stent placement Current Visit: Yes Status: Acute Assessment and Plan: stable (8) Bipolar disorder Current Visit: No Status: Chronic Assessment and Plan: Consulting psych, see agitation plan. (9) Developmental delay, moderate Current Visit: Yes Status: Chronic Assessment and Plan: Consulting psych, see agitation plan (10) Hypothyroidism Current Visit: Yes Status: Chronic Assessment and Plan: TSH within normal limits at [place] Continue Levothyroxine (11) DVT prophylaxis Current Visit: Yes Status: Acute Assessment and Plan: SQ heparin DVT Prophylaxis: sub q heparin - Summary of Assessment and Plan Summary of Assessment and Plan: She is stable from an infectious standpoint and encephalopathy standpoint. However she had a pericardial window and ripped out chest tube three days ago. Recently having increased agitated, requiring sedation. Working to wean off IV sedation and possibly to adjust medications so patient no longer needing sitter and can be discharged to F. -PT/OT recs SNF - see eval 11/24 - Time Spent with Patient Total time spent is greater than 50% in coordination of care (as documented) at patient's floor/unit and/or counseling patient: less than 15 minutes Plan of Care Discussed with: nurse Internal Medicine: Result - Labs CBC & Chem 7: 12/04/17 03:57 12/05/17 04:34 - ABG Interpretation ABG results: PT/INR, D-dimer PT 10.7 Seconds (9.4-12.1) 11/29/17 15:38 Consult Discharge Plan - Plan Referrals: Christiano Bull MD [Primary Care Provider] - 12/15/17 9:40 am <LelandcharlesNikki Kristinejulita - Last Filed: 12/06/17 17:56> Hospitalist Progress Note - Exam Vitals: Temp Pulse Resp BP Pulse Ox 98.3 F 74 17 88/50 94 12/06/17 15:15 12/06/17 15:15 12/06/17 15:15 12/06/17 15:15 12/06/17 15:15 - Assessment and Plan (1) Bacteremia Current Visit: Yes Status: Acute (2) Pericardial effusion Current Visit: Yes Status: Acute (3) UTI (urinary tract infection) Current Visit: Yes Status: Acute (4) Encephalopathy Current Visit: Yes Status: Resolved (5) Kidney stone Current Visit: Yes Status: Acute (6) S/P ureteral stent placement Current Visit: Yes Status: Acute (7) DVT prophylaxis Current Visit: Yes Status: Acute (8) Bipolar disorder Current Visit: No Status: Chronic (9) Hypothyroidism Current Visit: Yes Status: Chronic - Time Spent with Patient Total time spent is greater than 50% in coordination of care (as documented) at patient's floor/unit and/or counseling patient: Internal Medicine: Result - Labs CBC & Chem 7: 12/04/17 03:57 12/05/17 04:34 - ABG Interpretation ABG results: PT/INR, D-dimer PT 10.7 Seconds (9.4-12.1) 11/29/17 15:38 - Attending Attestation I examined this patient and my medical decision-making was reviewed with the Resident Physician. I agree with the documented findings, disposition and bernie atment plan as described except to the extent set forth below. <Jean Liz - Last Filed: 12/06/17 15:09> (4) UTI (urinary tract infection) Qualifiers: Urinary tract infection type: acute cystitis Hematuria presence: with hematuria Qualified Code(s): N30.01 - Acute cystitis with hematuria (8) Bipolar disorder Qualifiers: Active/Remission status: remission status unspecified Qualified Code(s): F31.9 - Bipolar disorder, unspecified (10) Hypothyroidism Qualifiers: Hypothyroidism type: acquired Qualified Code(s): E03.9 - Hypothyroidism, unspecified <Deepak Titus - Last Filed: 12/06/17 17:56> (3) UTI (urinary tract infection) Qualifiers: Urinary tract infection type: acute cystitis Hematuria presence: with hematuria Qualified Code(s): N30.01 - Acute cystitis with hematuria (8) Bipolar disorder Qualifiers: Active/Remission status: remission status unspecified Qualified Code(s): F31.9 - Bipolar disorder, unspecified (9) Hypothyroidism Qualifiers: Hypothyroidism type: acquired Qualified Code(s): E03.9 - Hypothyroidism, unspecified
[2017-12-06] MEDS ORDERED: *HR* LORazepam 2 MG/ML VIAL IVP ONE (12:32)
[2017-12-06] MEDS ORDERED: *HR* LORazepam 2 MG/ML VIAL ONE (12:34)
[2017-12-06] MEDS ORDERED: *HR* LORazepam 2 MG/ML VIAL IVP STA (12:55)
--- NOTE | 2017-12-06 13:14 | Consult Note ---
Date of Encounter: 12/06/17 Time of Encounter: 01:00 Assessment & Recommendation (1) Developmental delay, moderate Current visit: Yes Status: Acute (2) Bipolar disorder Current visit: No Status: Chronic Qualifiers: Active/Remission status: remission status unspecified Qualified Code(s): F31.9 - Bipolar disorder, unspecified (3) Agitation Current visit: Yes Status: Acute History of Present Illness History of present illness: Pt is a 42 yo, , female, Developmentally delayed, who presents for acute agitation and delirium. Pt was in restrains upon interview. Pt was not fighting restraints yet was noncompliant with staff and interview process. Pt continued to display agitation and aggression. Pt continues to remain confused and unable to be redirected. Pt was given 1 mg of ativan with out any reduction in aggression. 1.Interval hx 2.Continue current medications 3.Draw current labs 4.Pt had an opportunity to ask questions and discuss current treatment plan. 5.Supportive therapy was provided 6.Pt encouraged to cooperate with staff 7. Start PRN medications for agitation and aggression (ativan 2 mg IM Q6H PRN, Haloperidol 5 mg Q6h IM PRN and benadryl 50 mg IM Q6H PRN) 8.Pt was educated on the risks benefits and side effects of current medications. CC: Deepak Titus MD Past Med Surg Social Fam HX - Past Medical History Medical history: other - Past Psychiatric History Psychiatric history: Reports: bipolar, other (developmentally delayed) Family psychiatric history: Unknown Family History of Suicide: Unknown - Social History Smoking Status: Never smoker Smokeless Tobacco Status: No Alcohol use: none Drug use: none Medications & Allergies Acetaminophen [Tylenol] 1,000 mg PO BID PRN 11/15/17 [History] Atorvastatin [Lipitor] 40 mg PO HS 11/15/17 [History] Cetirizine HCl [Zyrtec] 10 mg PO DAILY PRN 11/15/17 [History] Cyanocobalamin (Vitamin B-12) [Vitamin B12] 500 mcg PO DAILY 11/15/17 [History] DULoxetine [Cymbalta] 90 mg PO QAM 11/15/17 [History] Docusate Sodium [Dulcolax Stool Softener] 200 mg PO DAILY 11/15/17 [History] Haloperidol Decanoate [Haldol] 75 mg IM QMONTH 11/15/17 [History] Levothyroxine [Synthroid] 25 mcg PO 0630 11/15/17 [History] Medroxyprogesterone Acetate [Provera] 10 mg PO DAILY PRN 11/15/17 [History] Nystatin POWDER [Nystop] 1 appl TP TID PRN 11/15/17 [History] Polyethylene Glycol 3350 [MiraLAX] 17 gm PO DAILY PRN 11/15/17 [History] Psyllium Husk [Fiber] 0.52 gm PO BID 11/15/17 [History] metFORMIN [Glucophage] 500 mg PO BIDWM 11/15/17 [History] Allergy/AdvReac Type Severity Reaction Status Date / Time No Known Allergies Allergy Verified 11/15/17 14:58 Review of Systems Constitutional: Denies: fever, chills, weakness, weight change Eyes: Denies: eye pain, vision change Ears, Nose, Throat: Denies: ear pain, throat pain, dental pain, hearing loss, congestion Cardiovascular: Denies: chest pain, palpitations, dyspnea on exertion Respiratory: Denies: cough, dyspnea, wheezes Gastrointestinal: Denies: abdominal pain, nausea, vomiting, diarrhea, constipation Genitourinary female: Denies: urgency, dysuria, frequency, abnormal menses, dyspareunia Musculoskeletal: Denies: joint swelling, joint pain Integumentary: Denies: rash, lesions, pruritus Neurological: Denies: headache, weakness, numbness, memory loss Endocrine: Denies: fatigue, heat or cold intolerance Hematologic/Lymphatic: Denies: easy bruising, lymphadenopathy Allergic/Immunologic: Denies: urticaria, itchy eyes Psychiatry Exam - Constitutional Vitals: Temp Pulse Resp BP Pulse Ox 97.8 F 84 16 106/63 98 12/06/17 12:15 12/06/17 12:15 12/06/17 12:15 12/06/17 12:15 12/06/17 12:15 General appearance: age & developmentally appropriate, disheveled - Musculoskeletal Gait: normal Station: relaxed Strength & Tone: normal for patient - Psychiatric Patient Orientation: No Person, No Time, No Place, No Circumstance Level of alertness: Alert, Responds to painful stimuli Behavior: agitated, aggressive, hostile, restless, uncooperative Psychomotor activity: Agitated Eye Contact: Avoids Eye Contact Mood Description: Angry, Irritable Affect description: inappropriate to situation Speech Volume: Normal, Loud Speech pattern: normal rate, Inappropriate to situation, disorganized, mumbled Language & Vocabulary: limited Thought Process: Disorganized Thought Content: Yes Poverty of Content Perceptual Disturbances: No Reacting to internal stimuli Attention Span Ability: Unable to Focus, Unable to Sustain Attention Memory Description: Recent Impaired, Remote Impaired Patient Reliability: Not Reliable Historian Fund of knowledge: Yes below average Intelligence Estimate: Below Average Judgment: Poor Insight: None Results - Labs Labs: Laboratory Last Values WBC 6.4 K/mcL (4.3-11.1) 12/04/17 03:57 RBC 3.35 M/mcL (3.82-4.97) L 12/04/17 03:57 Hgb 10.9 g/dL (11.5-15.4) L 12/04/17 03:57 Hct 33.3 % (35.3-44.9) L 12/04/17 03:57 MCV 99.4 fL (83.0-100.0) 12/04/17 03:57 MCH 32.5 pg (28.0-33.3) 12/04/17 03:57 MCHC 32.7 g/dL (31.6-35.5) 12/04/17 03:57 RDW 14.1 % (11.5-14.5) 12/04/17 03:57 Plt Count 282 K/mcL (140-400) 12/04/17 03:57 MPV 9.4 fL (9.4-12.4) 12/04/17 03:57 Immature Gran % 0.9 % (0-4) 12/04/17 03:57 Seg Neutrophils % 59.2 % 12/04/17 03:57 Lymphocytes % 28.0 % 12/04/17 03:57 Monocytes % 8.5 % 12/04/17 03:57 Eosinophils % 2.8 % 12/04/17 03:57 Basophils % 0.6 % 12/04/17 03:57 Neutrophils # 3.8 K/mcL (1.6-8.9) 12/04/17 03:57 Lymphocytes # 1.8 K/mcL (0.6-4.6) 12/04/17 03:57 Monocytes # 0.5 K/mcL (0.0-1.3) 12/04/17 03:57 Eosinophils # 0.2 K/mcL (0.0-0.6) 12/04/17 03:57 Basophils # 0.0 K/mcL (0.0-0.2) 12/04/17 03:57 Immature Plt Fraction 1.9 % (1.1-6.1) 11/26/17 17:36 PT 10.7 Seconds (9.4-12.1) 11/29/17 15:38 INR 1.0 11/29/17 15:38 APTT 29.1 Seconds (26.0-36.0) 11/29/17 15:38 Sodium 140 mEq/L (136-145) 12/05/17 04:34 Potassium 4.1 mEq/L (3.5-5.1) 12/05/17 04:34 Chloride 109 mEq/L (98-107) H 12/05/17 04:34 Carbon Dioxide 21 mEq/L (23-29) L 12/05/17 04:34 BUN 16 mg/dL (6-20) 12/05/17 04:34 Creatinine 1.00 mg/dL (0.60-1.20) 12/05/17 04:34 Est GFR ( Amer) > 60 (> 60) 12/05/17 04:34 Est GFR (Non-Af Amer) > 60 (> 60) 12/05/17 04:34 BUN/Creatinine Ratio 16 (6-26) 12/05/17 04:34 Glucose 120 mg/dL (70-105) H 12/05/17 04:34 POC Glucose 93 mg/dL (70-99) 12/02/17 10:54 Calculated Osmolality 292 (280-300) 12/05/17 04:34 Lactic Acid 0.7 mmol/L (0.5-2.2) 11/20/17 07:08 Calcium 9.2 mg/dL (8.6-10.3) 12/05/17 04:34 Phosphorus 1.9 mg/dL (2.7-4.5) L 11/20/17 03:52 Magnesium 2.0 mg/dL (1.6-2.6) 11/23/17 05:11 Total Bilirubin 0.3 mg/dL (0.3-1.0) 12/01/17 04:08 AST 20 Units/L (13-39) 12/01/17 04:08 ALT 21 Units/L (7-52) 12/01/17 04:08 Alkaline Phosphatase 67 Units/L (34-104) 12/01/17 04:08 Serum Total Protein 6.1 g/dL (6.4-8.9) L 12/01/17 04:08 Albumin 3.4 g/dL (3.5-5.7) L 12/01/17 04:08 Globulin 2.7 g/dL (2.4-3.5) 12/01/17 04:08 Albumin/Globulin Ratio 1.3 (1.1-2.2) 12/01/17 04:08 Beta HCG, Quant 2 mIU/mL (Less than 5) 12/01/17 08:27 Urine Color Yellow (Yellow) 11/20/17 08:42 Urine Clarity Hazy (Clear) A 11/20/17 08:42 Urine pH 6.5 pH Units (5.0-8.0) 11/20/17 08:42 Ur Specific [place] 1.009 (1.010-1.025) L 11/20/17 08:42 Urine Protein 100 mg/dL (Neg-Trace) H 11/20/17 08:42 Urine Glucose (UA) Normal mg/dL (Normal) 11/20/17 08:42 Urine Ketones Negative mg/dL (Negative) 11/20/17 08:42 Urine Blood Large (Negative) H 11/20/17 08:42 Urine Nitrite Negative (Negative) 11/20/17 08:42 Urine Bilirubin Negative (Negative) 11/20/17 08:42 Urine Urobilinogen Normal mg/dL (Normal) 11/20/17 08:42 Ur Leukocyte Esterase Large (Negative) H 11/20/17 08:42 Urine Microscopic RBC TNTC per hpf (0-3) H 11/20/17 08:42 Urine Microscopic WBC TNTC per hpf (0-3) H 11/20/17 08:42 Ur Squamous Epith Cells Many per lpf (None-Few) H 11/20/17 08:42 Urine Bacteria None Seen per hpf (None-Few) 11/20/17 08:42 Hyaline Casts None Seen per lpf (None-Few) 11/20/17 08:42 Ur Culture Indicated? NO. (NO) A 11/20/17 08:42 Fluid Glucose 100 mg/dL (No Ref Range) 12/01/17 09:41 Fluid LDH 96 Units/L (No Ref Range) 12/01/17 09:41 Pericard Appearance Clear (Clear) 12/01/17 09:41 Pericard Volume 40.0 mL 12/01/17 09:41 Pericard RBC < 0.002 M/mcL (No Ref Range) 12/01/17 09:41 Pericard Tot Nuc Cells 90 TNC/mcL (0-1000) 12/01/17 09:41 Pericard Neutrophils 11.0 % 12/01/17 09:41 Pericard Lymphocytes 28.0 % 12/01/17 09:41 Pericard Monocytes % 4.0 % 12/01/17 09:41 Pericard Other Cells 57.0 % 12/01/17 09:41 Pericard Total Protein < 3.0 g/dL (No Ref Range) 12/01/17 09:41 Vancomycin Trough 26 mcg/mL (5-10) H 11/22/17 22:59 Consult Discharge Plan - Plan Referrals: Christiano Bull MD [Primary Care Provider] - 12/15/17 9:40 am
[2017-12-06] MEDS: Haloperidol Lactate 5 MG/ML VIAL IM PRN (13:15)
[2017-12-06] MEDS: *HR* LORazepam 2 MG/ML VIAL IM PRN (13:15)
[2017-12-06] MEDS: OXYCODONE Oral CONC 10 MG/0.5 ML ORAL.SYG SL PRN (20:32)
[2017-12-07] MEDS: *HR* FentaNYL (PF) 100 MCG/2 ML VIAL IVP PRN (02:09)
[2017-12-07] MEDS: Acetaminophen 325 MG TABLET PO SCH ×3 (05:56→17:22)
[2017-12-07] MEDS: Levothyroxine 25 MCG TABLET PO SCH (05:57)
[2017-12-07] MEDS: OXYCODONE Oral CONC 10 MG/0.5 ML ORAL.SYG SL PRN (06:51)
[2017-12-07] MEDS: *HR* LORazepam 2 MG/ML VIAL IM PRN (06:58)
[2017-12-07] MEDS: Haloperidol Lactate 5 MG/ML VIAL IM PRN (06:58)
[2017-12-07] MEDS: Loratadine 10 MG TABLET PO SCH (11:54)
[2017-12-07] MEDS: Nystatin Cream 15 GM TUBE TP SCH ×2 (11:55→21:41)
--- NOTE | 2017-12-07 13:09 | Internal Med Progress Note ---
<Jayme Riggins - Last Filed: 12/07/17 13:23> Hospitalist Progress Note - Encounter Time of Encounter: 10:15 - Exam Vitals: Temp Pulse Resp BP Pulse Ox 97.8 F 70 15 110/71 95 12/07/17 11:10 12/07/17 12:20 12/07/17 11:10 12/07/17 11:10 12/07/17 11:10 - Assessment and Plan (1) Kidney stone Current Visit: Yes Status: Acute (2) S/P ureteral stent placement Current Visit: Yes Status: Acute (3) DVT prophylaxis Current Visit: Yes Status: Acute (4) Bipolar disorder Current Visit: No Status: Chronic (5) Hypothyroidism Current Visit: Yes Status: Chronic (6) Encephalopathy Current Visit: Yes Status: Resolved (7) Pericardial effusion Current Visit: Yes Status: Acute (8) UTI (urinary tract infection) Current Visit: Yes Status: Acute (9) Bacteremia Current Visit: Yes Status: Acute - Time Spent with Patient Total time spent is greater than 50% in coordination of care (as documented) at patient's floor/unit and/or counseling patient: Internal Medicine: Result - Labs CBC & Chem 7: 12/04/17 03:57 12/05/17 04:34 - ABG Interpretation ABG results: PT/INR, D-dimer PT 10.7 Seconds (9.4-12.1) 11/29/17 15:38 Consult Discharge Plan - Plan Referrals: Christiano Bull MD [Primary Care Provider] - 12/15/17 9:40 am - Attending Attestation I saw evaluated and examined this patient and my medical decision-making was reviewed with the Resident Physician, Fariba Zamora. I agree with the documented findings, disposition and treatment plan as described except to any changes set forth below. We independently had [id number] contact with the patient. Patient is currently very somnolent. She did receive 2 mg of IM Ativan earlier this morning shows thickening as stated. No reported fevers or chills overnight. On exam, patient is somnolent. Heart sounds were normal. Breath sounds are normal. Abdomen is soft, nontender. Sitter is present at bedside. Acute agitation/delirium: Likely related to acute infection and illness with underlying MRDD. Continue supportive care. 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 Will continue to closely monitor patient for signs of agitation. Continue Haldol 5 mg every 6 ours as needed and also continue Ativan orally. Will stop intramuscular Ativan. Acute urinary tract infection and bacteremia: Patient has completed antibiotic course. Pericardial effusion: Status post pericardial window with 200 mL of fluid drained. Chest tube was removed by patient last week. No complications since then. Right-sided ureteral stone status post right ureteral stent. Follow-up outpatient with urology. Bipolar disorder: Continue home medications. Psychiatry consult appreciated. Moderate risk for complications. <Fariba Zamora E - Last Filed: 12/07/17 15:38> Hospitalist Progress Note - Encounter Date of Encounter: 12/07/17 Time of Encounter: 09:00 - Subjective Interval History: Ms. Cowan was seen at bedside today and examined. PAtient was asleep but easily arousable. Slightly agitated. Coudl follow some simple commands. - Exam Vitals: Temp Pulse Resp BP Pulse Ox 97.8 F 70 15 110/71 95 12/07/17 11:10 12/07/17 12:20 12/07/17 11:10 12/07/17 11:10 12/07/17 11:10 Exam: General: sleeping but easily arousable, breathing spontaneously Cardiac: RRR, no murmur, rubs or gallops Pulmonary: CTAB, no w/r/r Abdomen: normoactive bowel sounds, soft, non-tender, non-distended Extremities: no pedal edema, pulses equal all 4 exremiities Skin: warm, dry, intact - Assessment and Plan (1) UTI (urinary tract infection) Current Visit: Yes Status: Acute Assessment and Plan: Urine cx - Proteus Finished 7 days Zosyn Finished 7 days Bactrim (2) Pericardial effusion Current Visit: Yes Status: Acute Assessment and Plan: Echo showing large pericardial effusion. POD#6 s/p pericardial window with 200ml fluid drained. Sent for analysis. Patient pulled out chest tube in agitation on 12/03.- CT surg aware, continuing to monitor. Management per Cardiothoracic Surgery. (3) Bacteremia Current Visit: Yes Status: Acute Assessment and Plan: Due to UTI repeat blood cx -no growth ID consulted- patient completed 7 days of zosyn and Bactrim. Stable from infectious standpoint. (4) Kidney stone Current Visit: Yes Status: Acute Assessment and Plan: Right renal calculi - 1.4 cm ureteropelvic junction stone on the right side s/p Rt ureter stent placement on 11/15/[address] Myrick talked to Urology Dr. Funes, who do not recommend an invasive procedures now. Need to f/u with them as an out pt Since pt was still c/o flank pain - stat CT of abd / pelvis showed 1.4 cm ureteropelvic junction stone on the right side. Rt ureter stent, also noticed moderate hydronephrosis Urology was consulted and no further intervention needed currently. (5) S/P ureteral stent placement Current Visit: Yes Status: Acute Assessment and Plan: see above (6) Hypothyroidism Current Visit: Yes Status: Chronic Assessment and Plan: Continue home dose levothyroxine (7) Encephalopathy Current Visit: Yes Status: Resolved Assessment and Plan: possibly due to UTI, resolved at this time (8) Bipolar disorder Current Visit: No Status: Chronic Assessment and Plan: Psych consulted see plan for agitation (9) Agitation Current Visit: Yes Status: Acute Assessment and Plan: Patient pulled out chest tube, had tried to pull out peripheral line and scratch at chest tube site. Patient with 1:1 sitter, distraction techniques used as possible. Required multiple doses of Ativan and Precedex drip. Temporary use of restraints. PAtient was mabel to stop precidex drip yesterday morning adn restraints by 2pm on Wednesday. Sitter was discontinued today around 11am. Evaluation by psych completed, recommending PRN medications for agitation and aggression (ativan 2 mg IM Q6H PRN, Haloperidol 5 mg Q6h IM PRN and benadryl 50 mg IM Q6H PRN). Possible discharge to [facility] if able to wean from precedex drip for 24hrs and no longer needing sitter, will have to be off sitter for 24 hours. PT/OT to re- evaluate for discharge. DVT Prophylaxis: sub q heparin - Time Spent with Patient Total time spent is greater than 50% in coordination of care (as documented) at patient's floor/unit and/or counseling patient: Internal Medicine: Result - Labs CBC & Chem 7: 12/04/17 03:57 12/05/17 04:34 - ABG Interpretation ABG results: PT/INR, D-dimer PT 10.7 Seconds (9.4-12.1) 11/29/17 15:38 <Amarsenio,ujan - Last Filed: 12/07/17 13:23> (4) Bipolar disorder Qualifiers: Active/Remission status: remission status unspecified Qualified Code(s): F31.9 - Bipolar disorder, unspecified (5) Hypothyroidism Qualifiers: Hypothyroidism type: acquired Qualified Code(s): E03.9 - Hypothyroidism, unspecified (8) UTI (urinary tract infection) Qualifiers: Urinary tract infection type: acute cystitis Hematuria presence: with hematuria Qualified Code(s): N30.01 - Acute cystitis with hematuria <Fariba Zamora E - Last Filed: 12/07/17 15:38> (1) UTI (urinary tract infection) Qualifiers: Urinary tract infection type: acute cystitis Hematuria presence: with hematuria Qualified Code(s): N30.01 - Acute cystitis with hematuria (6) Hypothyroidism Qualifiers: Hypothyroidism type: acquired Qualified Code(s): E03.9 - Hypothyroidism, unspecified (8) Bipolar disorder Qualifiers: Active/Remission status: remission status unspecified Qualified Code(s): F31.9 - Bipolar disorder, unspecified
[2017-12-07] MEDS: *HR* LORazepam 1 MG TABLET PO PRN (17:22)
[2017-12-08] MEDS: Acetaminophen 325 MG TABLET PO SCH ×4 (01:00→18:07)
[2017-12-08] MEDS: *HR* LORazepam 1 MG TABLET PO PRN ×3 (01:00→20:29)
[2017-12-08] MEDS: Levothyroxine 25 MCG TABLET PO SCH (07:39)
[2017-12-08] MEDS: Loratadine 10 MG TABLET PO SCH (09:09)
[2017-12-08] MEDS: Nystatin Cream 15 GM TUBE TP SCH ×2 (09:10→20:45)
--- NOTE | 2017-12-08 15:54 | Internal Med Progress Note ---
Hospitalist Progress Note - Encounter Date of Encounter: 12/08/17 Time of Encounter: 15:51 - Subjective Interval History: Evaluated patient earlier today. Somnolent but awakes easily. Did not have any complaints. Did not answer my questions but was smiling. Appeared comfortable. According to the nursing staff, she is agitated and did receive Ativan and Haldol orally this morning. - Exam Vitals: Temp Pulse Resp BP Pulse Ox 97.6 F 105 18 114/80 96 12/08/17 08:01 12/08/17 08:01 12/08/17 08:01 12/08/17 08:01 12/08/17 08:01 Exam: General: Patient is alert, no acute distress Respiratory: Good respiratory effort. Normal breath sounds. 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 Cardiovascular: Regular rate and rhythm. s1 and s2 normal No clicks, rubs, gallops, or murmurs. No pedal edema Abdomen: Abdomen is soft, nontender. Bowel sounds are present Musculoskeletal: Spontaneously moving all extremities Skin: warm, dry, intact. - Assessment and Plan (1) Bipolar disorder Current Visit: Yes Status: Chronic Assessment and Plan: With intermittent agitation. Evaluated by psychiatry. No longer having sitter at bedside. Continue Haldol and Ativan as needed orally to control symptoms. (2) Kidney stone Current Visit: Yes Status: Acute Assessment and Plan: Right ureteral stone. Status post right ureteral stent. She will follow-up after discharge with urology. (3) S/P ureteral stent placement Current Visit: Yes Status: Acute (4) DVT prophylaxis Current Visit: Yes Status: Acute Assessment and Plan: On SCDs as needed (5) Hypothyroidism Current Visit: Yes Status: Chronic Assessment and Plan: Continue levothyroxin (6) Encephalopathy Current Visit: Yes Status: Acute Assessment and Plan: Patient is less agitated and not requiring intravenous or intramuscular doses of benzodiazepines. We will continue Haldol as needed. Minimize use of Ativan (7) Pericardial effusion Current Visit: Yes Status: Acute Assessment and Plan: Status post pericardial window. Chest tube was removed by patient. Has been d oing well overall. Cultures have been negative. (8) UTI (urinary tract infection) Current Visit: Yes Status: Acute Assessment and Plan: Completed antibiotic treatment (9) Bacteremia Current Visit: Yes Status: Resolved Assessment and Plan: Completed antibiotic course. - Time Spent with Patient Total time spent is greater than 50% in coordination of care (as documented) at patient's floor/unit and/or counseling patient: Internal Medicine: Result - Labs CBC & Chem 7: 12/04/17 03:57 12/05/17 04:34 - ABG Interpretation ABG results: PT/INR, D-dimer PT 10.7 Seconds (9.4-12.1) 11/29/17 15:38 - Impressions Impressions Chest X-Ray 12/02/17 06:00 IMPRESSION: Findings suggesting pericardial effusion. Left chest tube. No pneumothorax. D/ / 12/02/2017 07:55:21 Blade Rome MD / amrita Interpreting Provider: Blade Rome MD Consult Discharge Plan - Plan Referrals: Christiano Bull MD [Primary Care Provider] - 12/15/17 9:40 am (1) Bipolar disorder Qualifiers: Active/Remission status: remission status unspecified Qualified Code(s): F31.9 - Bipolar disorder, unspecified (5) Hypothyroidism Qualifiers: Hypothyroidism type: acquired Qualified Code(s): E03.9 - Hypothyroidism, unspecified (8) UTI (urinary tract infection) Qualifiers: Urinary tract infection type: acute cystitis Hematuria presence: with h ematuria Qualified Code(s): N30.01 - Acute cystitis with hematuria
[2017-12-08] MEDS: OXYCODONE Oral CONC 10 MG/0.5 ML ORAL.SYG SL PRN (16:30)
[2017-12-09] MEDS: Acetaminophen 325 MG TABLET PO SCH ×5 (01:37→23:56)
[2017-12-09] MEDS: Levothyroxine 25 MCG TABLET PO SCH (06:19)
[2017-12-09] MEDS: *HR* LORazepam 1 MG TABLET PO PRN (08:19)
[2017-12-09] MEDS: Loratadine 10 MG TABLET PO SCH (08:20)
--- NOTE | 2017-12-09 10:10 | Internal Med Progress Note ---
<ClaudejacoboRoscoe trujilloFariba E - Last Filed: 12/09/17 10:54> Hospitalist Progress Note - Encounter Date of Encounter: 12/09/17 Time of Encounter: 10:07 - Subjective Interval History: Ms. Cowan was seen at bedside today and examined. PAtient was asleep but easily arousable. Slightly agitated but would follow some simple commands. - Exam Vitals: Temp Pulse Resp BP Pulse Ox 98.1 F 109 16 98/69 98 12/09/17 07:34 12/09/17 07:34 12/09/17 07:34 12/09/17 07:34 12/09/17 07:34 Exam: General: Patient is alert, no acute distress Respiratory: CTAB, No wheezing or crackles. Cardiovascular: Regular rate and rhythm, no murmurs, rubs, gallops. Abdomen: Abdomen is soft, nontender. Bowel sounds are present Musculoskeletal: Spontaneously moving all extremities Skin: warm, dry, intact. - Assessment and Plan (1) UTI (urinary tract infection) Current Visit: Yes Status: Acute Assessment and Plan: Completed antibiotic course, following with urology outpatient (2) Pericardial effusion Current Visit: Yes Status: Acute Assessment and Plan: status post pericardial effusion. Patient took out own chest tube STable. Cultures negative (3) Bacteremia Current Visit: Yes Status: Resolved Assessment and Plan: finished course of antibiotics (4) Kidney stone Current Visit: Yes Status: Acute Assessment and Plan: following urology as outpatient (5) S/P ureteral stent placement Current Visit: Yes Status: Acute Assessment and Plan: following urology as outpatient (6) Hypothyroidism Current Visit: Yes Status: Chronic Assessment and Plan: continue home medications (7) Encephalopathy Current Visit: Yes Status: Acute Assessment and Plan: patient still agitated, will continue halidol at 1mg PO, discontinue adivan (8) Bipolar disorder Current Visit: Yes Status: Chronic Assessment and Plan: With intermittent agitation. Evaluated by psychiatry. No longer having sitter at bedside. Continue Haldol at 1mg PO, discontinue adivan (9) Agitation Current Visit: Yes Status: Acute Assessment and Plan: With intermittent agitation. Evaluated by psychiatry. No longer having sitter at bedside. Continue Haldol at 1mg PO, discontinue adivan DVT Prophylaxis: sub q heparin - Time Spent with Patient Total time spent is greater than 50% in coordination of care (as documented) at patient's floor/unit and/or counseling patient: Internal Medicine: Result - Labs CBC & Chem 7: 12/04/17 03:57 12/05/17 04:34 - ABG Interpretation ABG results: PT/INR, D-dimer PT 10.7 Seconds (9.4-12.1) 11/29/17 15:38 Consult Discharge Plan - Plan Referrals: Christiano Bull MD [Primary Care Provider] - 12/15/17 9:40 am <Jayme Riggins - Last Filed: 12/09/17 12:39> Hospitalist Progress Note - Encounter Date of Encounter: 12/09/17 Time of Encounter: 10:00 - Exam Vitals: Temp Pulse Resp BP Pulse Ox 97.9 F 106 18 114/71 98 12/09/17 11:40 12/09/17 11:40 12/09/17 11:40 12/09/17 11:40 12/09/17 11:40 - Assessment and Plan (1) Bipolar disorder Current Visit: Yes Status: Chronic (2) Kidney stone Current Visit: Yes Status: Acute (3) S/P ureteral stent placement Current Visit: Yes Status: Acute (4) DVT prophylaxis Current Visit: Yes Status: Acute (5) Hypothyroidism Current Visit: Yes Status: Chronic (6) Encephalopathy Current Visit: Yes Status: Acute (7) Pericardial effusion Current Visit: Yes Status: Acute (8) UTI (urinary tract infection) Current Visit: Yes Status: Acute (9) Bacteremia Current Visit: Yes Status: Resolved - Time Spent with Patient Total time spent is greater than 50% in coordination of care (as documented) at patient's floor/unit and/or counseling patient: Internal Medicine: Result - Labs CBC & Chem 7: 12/04/17 03:57 12/05/17 04:34 - ABG Interpretation ABG results: PT/INR, D-dimer PT 10.7 Seconds (9.4-12.1) 11/29/17 15:38 - Attending Attestation I saw evaluated and examined this patient and my medical decision-making was reviewed with the Resident Physician, Fariba Zamora. I agree with the documented findings, disposition and treatment plan as described except to any changes set forth below. We independently had [id number] contact with the patient. Patient lying in bed today. Not responding to questions but smiles. Has been intermittently agitated. Presently not agitated. On exam, patient is awake and alert. Heart sounds are normal. Breath sounds are normal. Abdomen is soft, nontender. Acute agitation/delirium: Overall symptoms appear to be improving. We will stop Ativan. Continue Haldol as per psychiatric recommendations. Awaiting placement to skilled rehabilitation. Acute UTI with bacteremia: Completed antibiotic therapy. Pericardial effusion: Status post pericardial window. Cultures have been neg ative. No further treatment recommended at this time. Would arrange for her to repeat 2-D echocardiogram as outpatient. Ureteral stones: Follow-up outpatient with urology after discharge. Bipolar disorder: Continue Haldol and Cymbalta <Fariba Zamora - Last Filed: 12/09/17 10:54> (1) UTI (urinary tract infection) Qualifiers: Urinary tract infection type: acute cystitis Hematuria presence: with hematuria Qualified Code(s): N30.01 - Acute cystitis with hematuria (6) Hypothyroidism Qualifiers: Hypothyroidism type: acquired Qualified Code(s): E03.9 - Hypothyroidism, unspecified (8) Bipolar disorder Qualifiers: Active/Remission status: remission status unspecified Qualified Code(s): F31.9 - Bipolar disorder, unspecified <Ameda,ujan - Last Filed: 12/09/17 12:39> (1) Bipolar disorder Qualifiers: Active/Remission status: remission status unspecified Qualified Code(s): F31.9 - Bipolar disorder, unspecified (5) Hypothyroidism Qualifiers: Hypothyroidism type: acquired Qualified Code(s): E03.9 - Hypothyroidism, unspecified (8) UTI (urinary tract infection) Qualifiers: Urinary tract infection type: acute cystitis Hematuria presence: with hematuria Qualified Code(s): N30.01 - Acute cystitis with hematuria
[2017-12-09] MEDS: Nystatin Cream 15 GM TUBE TP SCH ×2 (10:28→21:19)
[2017-12-09] MEDS: Haloperidol Lactate 5 MG/ML VIAL IM PRN (20:00)
[2017-12-10] MEDS: OXYCODONE Oral CONC 10 MG/0.5 ML ORAL.SYG SL PRN (02:20)
[2017-12-10] MEDS: Haloperidol Lactate 5 MG/ML VIAL IM PRN ×2 (02:32→11:13)
[2017-12-10] MEDS: Acetaminophen 325 MG TABLET PO SCH ×2 (09:39→13:08)
[2017-12-10] MEDS: Loratadine 10 MG TABLET PO SCH (10:39)
[2017-12-10] MEDS: Levothyroxine 25 MCG TABLET PO SCH (10:40)
--- NOTE | 2017-12-10 11:50 | Discharge Summary ---
<Jean Liz - Last Filed: 12/10/17 15:35> - NOTES TO OUTPATIENT PROVIDER Notes to Outpatient Provider: Medically cleared for discharge. Outpatient f/u with urology for UTI and nephrolithasis. Increased agitation while inpatient, recommend follow up with PCP and Psych as patient may need medications further addressed. Recommend 2D echo to follow up for pericardial effusion. Orders not resulted at time of discharge: Pending orders 12/01/17 09:41 AFB Culture, Body Fluid [TB] Routine AFB Smear [TB] Routine Fungal Culture [MYC] Routine Date of Encounter: 12/10/17 Time of Encounter: 10:10 - Discharge Diagnosis (1) Bacteremia Priority: Primary Status: Resolved (2) Agitation Priority: Secondary Status: Acute (3) Pericardial effusion Priority: Secondary Status: Acute (4) UTI (urinary tract infection) Priority: Secondary Status: Acute Qualifiers: Urinary tract infection type: acute cystitis Hematuria presence: with hematuria Qualified Code(s): N30.01 - Acute cystitis with hematuria (5) Encephalopathy Priority: Secondary Status: Acute (6) Kidney stone Priority: Secondary Status: Acute (7) S/P ureteral stent placement Priority: Secondary Status: Acute (8) Bipolar disorder Priority: Secondary Status: Chronic Qualifiers: Active/Remission status: remission status unspecified Qualified Code(s): F3 1.9 - Bipolar disorder, unspecified (9) Developmental delay, moderate Priority: Secondary Status: Chronic (10) Hypothyroidism Priority: Secondary Status: Chronic Qualifiers: Hypothyroidism type: acquired Qualified Code(s): E03.9 - Hypothyroidism, unspecified Hospital course: Ms. Cowan is a 42 year old female with history of developmental delay (who lives at a [facility]), she was hospitalized after recent diagnosis of right ureteral stone status post cystoscopy and stent placement. Noted to be more agitated at the [facility] and brought back to the ER. Patient has been mostly nonverbal during her stay here with episodes of intermittent agitation. Evaluated by urology and recommending outpatient follow up and no interventions at this time. Initial cultures revealed Proteus and Staphylococcus hominis -treated with IV antibiotics, which she has since completed. Diagnosed with a pericardial effusion requiring pericardial window by cardiothoracic surgery. On post op day 2 patient became agitated and pulled out her chest tube, she has remained stable since then. About 500 mL of pericardial fluid had been removed prior to this, culture of fluid negative. Patient continued to have intermittent episodes of agitation requiring Haldol and Ativan. As she became more accustomed to surroundings this has seemed improve. She was evaluated by physical therapy and recommended placement to skilled rehabilitation. She needs to follow-up with urology after discharge for further management. She will also need a 2-D echocardiogram for follow-up on her pericardial effusion. Discharge discussed with: social work - Time Spent with Patient Total time spent providing and/or coordinating discharge services: Less than 30 minutes - Discharge Medications Home Medications: RX: Atorvastatin [Lipitor] 40 mg PO HS 11/15/17 [History] RX: Cetirizine HCl [Zyrtec] 10 mg PO DAILY PRN 11/15/17 [History] RX: Cyanocobalamin (Vitamin B-12) [Vitamin B12] 500 mcg PO DAILY 11/15/17 [History] RX: DULoxetine [Cymbalta] 90 mg PO QAM 11/15/17 [History] RX: Docusate Sodium [Dulcolax Stool Softener] 200 mg PO DAILY 11/15/17 [History] RX: Haloperidol Decanoate [Haldol] 75 mg IM QMONTH 11/15/17 [History] RX: Levothyroxine [Synthroid] 25 mcg PO 0630 11/15/17 [History] RX: Medroxyprogesterone Acetate [Provera] 10 mg PO DAILY PRN 11/15/17 [History] RX: Polyethylene Glycol 3350 [MiraLAX] 17 gm PO DAILY PRN 11/15/17 [History] RX: Psyllium Husk [Fiber] 0.52 gm PO BID 11/15/17 [History] RX: Acetaminophen [Tylenol] 650 mg PO Q6HR tablet 12/10/17 [Rx] RX: DiphenhydraMINE [Benadryl] 50 mg IM Q6H PRN vial 12/10/17 [Rx] RX: Haloperidol Lactate [Haldol] 5 mg IM Q6HR PRN vial 12/10/17 [Rx] RX: Haloperidol [Haldol] 1 mg PO TID PRN tablet 12/10/17 [Rx] RX: Nystatin Cream [Mycostatin Cream] 1 appl TP BID tube 12/10/17 [Rx] RX: Tamsulosin [Flomax] 0.4 mg PO DAILY capsule 12/10/17 [Rx] Allergies/Adverse Reactions: Allergy/AdvReac Type Severity Reaction Status Date / Time lorazepam [From Ativan] AdvReac See Verified 12/10/17 16:23 Comments Date of admission: 11/21/17 17:43 Primary care physician: Christiano Bull MD Consults: 11/20/17 04:09 Consult to Urology [CONS] Routine Consulting Provider: U[facility] [place] Reason for Consult: recent R. Ureteral stent, continues to have pain and AMS. Call Completed: No 11/22/17 08:30 Consult to Infectious Diseases [CONS] Routine Consulting Provider: Infectious Disease [place] Reason for Consult: Bacteremia, likely 2/2 UTI and kidney stone Call Completed: No 11/23/17 14:30 Consult to Physical Therapy [CONS] Routine Comment: Evaluate, develop and implement POC Reason for Consult: weakness, discharge planning, up adlib at baseline Does patient have active BEDREST order?: No Is patient medically & hemodynamically stable?: Yes Patient assessed for mobility or mobilized this visit?: Yes 11/23/17 14:32 Consult to Occupational Therapy [CONS] Routine Comment: Evaluate, develop and implement POC Reason for Consult: discharge planning, weakness Does patient have active BEDREST order?: No Is patient medically & hemodynamically stable?: Yes Patient assessed for mobility or mobilized this visit?: Yes 11/29/17 12:48 Consult to Cardiothoracic Surgery [CONS] Routine Consulting Provider: Cardiothoracic Surgery [place] Reason for Consult: large pericardial effusion Time Notified: 12:49 Call Completed: Yes 11/29/17 16:11 Consult to Cardiology [CONS] Routine Comment: Consulting Provider: Cardiology [place] Reason for Consult: Pericardial effusion Time Notified: 16:11 Call Completed: Yes 12/06/17 10:06 Consult to Psychiatry [CONS] Routine Consulting Provider: Psychiatry [place] Reason consult: Agitation Sitter/1:1 Medication recommendation Time Notified: 10:08 Call Completed: Yes 12/08/17 08:02 Consult to Clinical Laboratory Technologist [CONS] Routine Reason for SW Consult: needs ecf Discharging clinician: Jayme Riggins Anticipated date of discharge: 12/10/17 - Constitutional Vitals: Temp Pulse Resp BP Pulse Ox 97.8 F 102 16 108/72 98 12/09/17 23:47 12/10/17 06:57 12/10/17 06:57 12/10/17 06:57 12/10/17 06:57 Exam: General: Patient is alert, no acute distress Respiratory: CTAB, No wheezing or crackles. Cardiovascular: Regular rate and rhythm, no murmurs, rubs, gallops. Abdomen: Abdomen is soft, nontender. Bowel sounds are present Musculoskeletal: Spontaneously moving all extremities Skin: warm, dry, intact. - Patient Status Disposition: Transfer SNF Condition: Good Overall status at discharge: patient is back to baseline - Discharge Instructions Follow Up With: Christiano Bull MD [Primary Care Provider] - 12/15/17 9:40 am Additional Instructions: Patient clinically stable for multiple days pending resolution of acute agitation and ECF placement.Recommend outpatient follow up with PCP and psych as patient may require further adjustment of medications. Urology planning to call to arrange outpatient follow up for kidney stone. Need follow for 2D echo for pericardial effusion. - Diet and Activity Activity: increase activity as tolerated Diet: advance to your usual diet <Jayme Riggins - Last Filed: 12/10/17 17:14> Orders not resulted at time of discharge: Pending orders 12/01/17 09:41 AFB Culture, Body Fluid [TB] Routine AFB Smear [TB] Routine Fungal Culture [MYC] Routine Date of Encounter: 12/10/17 Time of Encounter: 13:48 - Discharge Diagnosis (1) Bipolar disorder Status: Chronic Qualifiers: Active/Remission status: remission status unspecified Qualified Code(s): F31.9 - Bipolar disorder, unspecified (2) Kidney stone Status: Acute (3) S/P ureteral stent placement Status: Acute (4) DVT prophylaxis Status: Acute (5) Hypothyroidism Status: Chronic Qualifiers: Hypothyroidism type: acquired Qualified Code(s): E03.9 - Hypothyroidism, unspecified (6) Encephalopathy Status: Acute (7) Pericardial effusion Status: Acute (8) UTI (urinary tract infection) Status: Acute Qualifiers: Urinary tract infection type: acute cystitis Hematuria presence: with hematuria Qualified Code(s): N30.01 - Acute cystitis with hematuria (9) Bacteremia Status: Resolved Hospital course: Ms. Cowan is a 42 year old female - Time Spent with Patient Total time spent providing and/or coordinating discharge services: Less than 30 minutes (15 min) Date of admission: 11/21/17 17:43 Primary care physician: Christiano Bull MD Consults: 11/20/17 04:09 Consult to Urology [CONS] Routine Consulting Provider: Urology [place] Reason for Consult: recent R. Ureteral stent, continues to have pain and AMS. Call Completed: No 11/22/17 08:30 Consult to Infectious Diseases [CONS] Routine Consulting Provider: Infectious Disease [place] Reason for Consult: Bacteremia, likely 2/2 UTI and kidney stone Call Completed: No 11/23/17 14:30 Consult to Physical Therapy [CONS] Routine Comment: Evaluate, develop and implement POC Reason for Consult: weakness, discharge planning, up adlib at baseline Does patient have active BEDREST order?: No Is patient medically & hemodynamically stable?: Yes Patient assessed for mobility or mobilized this visit?: Yes 11/23/17 14:32 Consult to Occupational Therapy [CONS] Routine Comment: Evaluate, develop and implement POC Reason for Consult: discharge planning, weakness Does patient have active BEDREST order?: No Is patient medically & hemodynamically stable?: Yes Patient assessed for mobility or mobilized this visit?: Yes 11/29/17 12:48 Consult to Cardiothoracic Surgery [CONS] Routine Consulting Provider: Cardiothoracic Surgery [place] Reason for Consult: large pericardial effusion Time Notified: 12:49 Call Completed: Yes 11/29/17 16:11 Consult to Cardiology [CONS] Routine Comment: Consulting Provider: Cardiology [facility] Reason for Consult: Pericardial effusion Time Notified: 16:11 Call Completed: Yes 12/06/17 10:06 Consult to Psychiatry [CONS] Routine Consulting Provider: Psychiatry [place] Reason consult: Agitation Sitter/1:1 Medication recommendation Time Notified: 10:08 Call Completed: Yes 12/08/17 08:02 Consult to Clinical Laboratory Technologist [CONS] Routine Reason for SW Consult: needs ecf - Constitutional Vitals: Temp Pulse Resp BP Pulse Ox 98.6 F 96 15 121/82 97 12/10/17 12:02 12/10/17 12:02 12/10/17 12:02 12/10/17 12:02 12/10/17 12:02 Exam: General: Patient is alert, no acute distress, nonverbal to my questions but does smile Respiratory: Good respiratory effort. Normal breath sounds. No wheezing or crackles. Cardiovascular: Regular rate and rhythm. s1 and s2 normal No clicks, rubs, gallops, or murmurs. No pedal edema - Attending Attestation I saw evaluated and examined this patient and my medical decision-making was reviewed with the Resident Physician, Jean Liz. I agree with the documented findings, disposition and treatment plan as described except to any changes set forth below. We independently had [id number] contact with the patient. Patient with history of developmental delay who lives at a [facility] was hospitalized here after recent recently been diagnosed with right ureteral stone status post cystoscopy and stent placement. She had become more agitated at the [facility] and so was brought in back to the ER. Patient has been mostly nonverbal during her stay here with episodes of intermittent agitation. She was evaluated by urology and no further treatment was recommended from a urologic standpoint. Her cultures did come back positive for Proteus and Staphylococcus hominis and for that patient received IV antibiotics. She has completed treatment for that. She was also diagnosed with a pericardial effusion and cardiothoracic surgery evaluated her and placed a pericardial window. However patient became agitated and pulled out her chest tube. She has however remained stable since then. About 500 mL of pericardial fluid had been removed prior to this. Cultures of this fluid have been negative. Patient continued to have episodes of intermittent agitation which was treated with Haldol and Ativan. Presently she appears to be slowly returning to her baseline. She is no longer having intermittent delirium or agitation but this screaming intermittently without being at risk for harm. She was evaluated by physical therapy and recommended placement to skilled rehabilitation. 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 She will be discharged from the hospital once she gets accepted to a facility. She needs to follow-up with urology after discharge for further management. She will also need a 2-D echocardiogram for follow-up on her pericardial effusion.
[2017-12-10] MEDS ORDERED: Haloperidol Lactate 5 MG/ML VIAL IM ONE (15:11)
--- NOTE | 2017-12-10 15:32 | Physician Discharge Referral ---
[facility] Referral Info Provider in Charge after Transfer: PCP Institutional Level of Care: Skilled - Diagnosis (1) Bacteremia Priority: Primary Status: Resolved (2) Agitation Priority: Secondary Status: Acute (3) Pericardial effusion Priority: Secondary Status: Acute (4) UTI (urinary tract infection) Priority: Secondary Status: Acute (5) Encephalopathy Priority: Secondary Status: Acute (6) Kidney stone Priority: Secondary Status: Acute (7) S/P ureteral stent placement Priority: Secondary Status: Acute (8) Bipolar disorder Priority: Secondary Status: Chronic (9) Developmental delay, moderate Priority: Secondary Status: Chronic (10) Hypothyroidism Priority: Secondary Status: Chronic Prognosis: Good Aware of Diagnosis: Patient Aware of Prognosis: Patient - Transfer Medications Home Medications: Atorvastatin [Lipitor] 40 mg PO HS 11/15/17 [History] Cetirizine HCl [Zyrtec] 10 mg PO DAILY PRN 11/15/17 [History] Cyanocobalamin (Vitamin B-12) [Vitamin B12] 500 mcg PO DAILY 11/15/17 [History] DULoxetine [Cymbalta] 90 mg PO QAM 11/15/17 [History] Docusate Sodium [Dulcolax Stool Softener] 200 mg PO DAILY 11/15/17 [History] Haloperidol Decanoate [Haldol] 75 mg IM QMONTH 11/15/17 [History] Levothyroxine [Synthroid] 25 mcg PO 0630 11/15/17 [History] Medroxyprogesterone Acetate [Provera] 10 mg PO DAILY PRN 11/15/17 [History] Polyethylene Glycol 3350 [MiraLAX] 17 gm PO DAILY PRN 11/15/17 [History] Psyllium Husk [Fiber] 0.52 gm PO BID 11/15/17 [History] Acetaminophen [Tylenol] 650 mg PO Q6HR tablet 12/10/17 [Rx] DiphenhydraMINE [Benadryl] 50 mg IM Q6H PRN vial 12/10/17 [Rx] Haloperidol Lactate [Haldol] 5 mg IM Q6HR PRN vial 12/10/17 [Rx] Haloperidol [Haldol] 1 mg PO TID PRN tablet 12/10/17 [Rx] Nystatin Cream [Mycostatin Cream] 1 appl TP BID tube 12/10/17 [Rx] Tamsulosin [Flomax] 0.4 mg PO DAILY capsule 12/10/17 [Rx] Allergies/Adverse Reactions: Allergy/AdvReac Type Severity Reaction Status Date / Time No Known Allergies Allergy Verified 11/15/17 14:58 - Respiratory Orders None Smoking Cessation: Smoking cessation has been advised. For more information, call the [place] Tobacco Quit Line at 1-850-JMMJ-NOW. - Ancillary Orders May use pressure relief devices daily prn - Advance Directives Code Status: Full Code - Mobility Orders Bedrest - Rehabiliation Orders Rehab Orders: Evaluation for Physical Therapy, Evaluation for Occupational Therapy - Treatments Skin tear care topically daily PRN per policy List/Other: Patient will need follow up for 2D echo to reassess for pericardial effusion and will need urology follow up for kidney stone. - Diet Orders Regular CERTIFICATION: I certify that the transfer of the above named patient to an Extended Care Facility is necessary for the continuing treatment of the diagnosis listed. The above information is true and accurate reflection of patient's current condition. Confidential - Redisclosure prohibited without a patient's written consent.
[2017-12-10 15:51] VITALS: BP 123/83
[2017-12-10] MEDS: Nystatin Cream 15 GM TUBE TP SCH (16:39)
[2017-12-19] MEDS ORDERED: Haloperidol Decanoate 50 MG/ML VIAL IM SCH (09:00)
== END 2017-12-10 17:50 | DRG 710 ==
LOC: 3ANU → SUATTDRO 11-20 01:19 → ICNU 12-02 10:37 → 2NNU 12-02 20:47 → 2ANU 12-07 17:30
PROVIDERS: ADMIT Internal Medicine; ATTEND Internal Medicine